=== PATIENT | female | born 1935 | race Caucasian/White ===

== ENCOUNTER 2016-08-08 19:14 | Inpatient (IN) | payer OTHER ==
--- NOTE | 2016-08-08 20:15 | PROVIDER DOCUMENTATION ---
HPI-Musculoskeletal Pain/Inj - GENERAL Chief Complaint: Fall Stated Complaint: fall Time Seen by Provider: 08/08/16 20:00 Source: patient - HX OF PRESENT ILLNESS-MUSKULOSKELTAL Nature of Presenting Problem: 81 Y/O F presents to ED with extremity pain. Pt states she was at home in the bathroom changing her colostomy bag, when she fell forward on to her knees and cut her right forearm. Pt c/o of lower back pain, with tenderness to right and left knees. Quality of Pain: reports: aching Severity in ED: moderate Onset/Duration: this evening Timing: still present Any recent injury?: No Locality of Occurance: Home Similar Symptoms Previously?: No - FALL INJURY Location of Pain/Injury: reports: upper extremity, back, lower extremity Pain Radiation: reports: no radiation Reason for Fall: reports: unknown Symptoms prior to fall:: reports: none Loss of Consciousness: unsure Injury Associated Symptoms: reports: back/neck pain, joint pain, muscle aches - LOWER EXTREMITY PAIN/INJURY Lower Extremities Pain: knee: bilateral Context / Method of Injury: reports: fell Associated Symptoms: reports: lower back pain - UPPER EXTREMITY PAIN/INJURY Extremities Pain Location: forearm: right Context / Method of Injury: reports: fell Review of Systems - Adult - REVIEW OF SYSTEMS - ADULT Constitutional: denies: chills, fever Eyes: reports: no symptoms reported Ears, Nose, Mouth & Throat: denies: ear discharge, ear pain, sinus problem, nose pain, loose teeth, mouth/dental pain Cardiovascular: denies: chest pain Respiratory: reports: no symptoms reported Gastrointestinal: denies: abdominal pain, diarrhea, nausea, rectal bleeding Genitourinary: reports: no symptoms reported Musculoskeletal: reports: back pain, joint pain, muscle aches Integumentary: reports: no symptoms reported Neurological: denies: dizziness/vertigo, headache/migraines Psychiatric: reports: no symptoms reported Endocrine: reports: no symptoms reported Hematologic/Lymphatic: reports: no symptoms reported Allergic/Immunologic: reports: no symptoms reported All Other Systems: Reviewed and Negative Past History - Adult - PAST MEDICAL HISTORY-ADULT Review of Records: reports: Old Records Reviewed, Nursing Assessment Review, Medications Reviewed, Social history reviewed & non-contributory. Major Childhood Illnesses: reports: denies history Cardiovascular: reports: A-Fib, blood clots (DVT), CAD, CHF, HTN, hyperlipidemia Respiratory: reports: denies history Gastrointestinal: reports: diverticulosis, other (perf diverticulitis requiring colostomy) Obstetrical/Gynecological: reports: denies history Genitourinary: reports: denies history Musculoskeletal: reports: arthritis (gout; polymyalgia rheumatica), other ( varicose veins in kylee legs) Neurological: reports: other (weakness tp bilat legs) Endocrine/Immune: reports: Diabetes, thyroid disorder, other (Vitamin B12 deficiency) Other Conditions: reports: denies history - PRIOR SURGERIES/PROCEDURES Surgical/Procedure History: reports: cholecystectomy, bowel surgery (sigmoid colectomy with end colostomy), orthopedic (extremity) (left shoulder Sx), joint replacement (Kylee knee replacement) - PRIOR HOSPITALIZATIONS Prior Hospitalizations: reports: none - IMMUNIZATION STATUS Childhood Immunizations: See Nurse Assessment Flu Vaccine: See Nurse Assessment - FAMILY HISTORY Family History: other (cirhosis of the liver; arthritis) - SOCIAL HISTORY Smoking: non-smoker Substance Use: none/never Alcohol Use Frequency: never Living Situation: family Physical Exam-Injury Related - Physical Exam-Injury Related Initial Vital Signs Reviewed: Yes General Appearance: appears well, alert, no apparent distress, obese Eyes: PERRL/EOMI, pink conjunctivae, fundi clear, no AV nicking Head, Ears, Nose, Mouth & Throat: normocephalic/atraumatic, moist mucous membranes, normal ENT inspection, TMs normal, pharynx normal Neck: non-tender, full range of motion, supple Respiratory: chest non-tender, lungs clear, normal breath sounds Cardiovascular: normal peripheral pulses, regular rate, rhythm Abdominal Exam: normal bowel sounds, non tender, other (colotomy bag) Back Exam: other (Lower Back Pain) Extremity: normal range of motion, tenderness (bilateral knee tenderness), other (abrasion to right forearm) Integumentary: normal color, warm/dry Neurologic: blasting entryman II-XII nml as tested Psych/Mental Status: normal mood/affect, normal thought content, normal thought process, oriented x 3 - Glascow Coma Score Best Eye Response ([place]): (4) open spontaneously Best Verbal Response ([place]): (5) oriented Best Motor Response ([place]): (6) obeys commands [place] Total: 15 Progress - PLAN OF CARE/RESULTS Progress/Plan/Lab Results: Laboratory Tests 08/08/16 08/08/16 22:35 22:35 WBC 10.61 RBC 4.00 L Hgb 13.0 Hct 41.2 MCV 103.0 H MCH 32.5 H MCHC 31.6 L RDW Std Deviation 15.4 H Plt Count 228 MPV 9.9 Immature Gran % (Auto) 1.0 H Neut % (Auto) 72.9 Lymph % (Auto) 18.8 L Cottle % (Auto) 5.9 Eos % (Auto) 1.1 Baso % (Auto) 0.3 Immature Gran # (Auto) 0.11 H Neut # (Auto) 7.73 H Lymph # (Auto) 1.99 Cottle # (Auto) 0.63 H Eos # (Auto) 0.12 Baso # (Auto) 0.03 Sodium 141 Potassium 4.2 Chloride 102 Carbon Dioxide 25 Anion Gap 14 BUN 35 H Creatinine 2.0 H Estimated GFR/1.73 m2 24 BUN/Creatinine Ratio 18 Glucose 223 H Calculated Osmolality 296 Calcium 8.9 Total Bilirubin 0.30 AST 14 ALT 16 Alkaline Phosphatase 93 Total Protein 6.2 L Albumin 3.7 Globulin 3.0 Albumin/Globulin Ratio 1.0 Orders Category Date Time Status KNEE 1-2 VIEWS-LEFT [RAD] Stat Exams 08/08/16 20:01 Taken KNEE 1-2 VIEWS-RIGHT [RAD] Stat Exams 08/08/16 20:01 Taken LUMBAR SPINE W/O CONTRAST [CT] Stat Exams 08/08/16 19:58 Taken PELVIS W/O CONTRAST [CT] Stat Exams 08/08/16 19:58 Taken CBC WITH DIFF [HEME] Stat Lab 08/08/16 22:35 Completed CMP [COMPREHENSIVE METABOLIC PANEL] [CHEM] Stat Lab 08/08/16 22:35 Completed Vital Signs - 24 hr 08/08/16 19:15 Temperature 97.3 F L Pulse Rate 77 Respiratory 20 Rate Blood Pressure 150/88 O2 Sat by Pulse 97 Oximetry Family states they would like for Pt to be admitted and sent to rehab, due to this being a reoccurring fx. - XRAY 1 XRAY: Bilateral XRAY Study: Knee Impression: Normal XRAY Interpretation: NAD - CT/MRI 1 CT Study: Pelvis Impression: Abnormal (old fx deformity of right pubic bone, hip degenerative changes, herniation of small bowel through colostomy defect in left anterior abdominal wall) CT Results: Possible minimal fx of right sacral ala, no other fx identified 2 CT Study: Lumbar Spine Impression: Normal CT Results: Severe degenerative disease, no fx - CONSULTS/PCP/HOSPITALIST Notification #1 *Consult/PCP/Hospitalist*: Time Discussed: 23:17 Reason/Comments: Admit for Xfer Consult Disposition: Admit (Alden from [facility] is going to call Dr. Goss and see if Pt can be approved for stay in [place]. Pt is a Dr. eRbolledo Pt.) #2 Consult: Time Discussed: 23:35 Reason/Comments: Admit Consult Disposition: Admit (Admit Accepted) Departure - Departure Time of Disposition Order: 23:17 DIAGNOSIS: Fracture, pelvis closed Qualifiers: Encounter type: subsequent encounter Pelvic bone location: other part of pelvis Fracture healing: with routine healing Qualified Code(s): S32.89XD - Fracture of other parts of pelvis, subsequent encounter for fracture with routine healing Disposition: ADMITTED INPATIENT 09 Certified Medical Emergency: Emergent Condition: Stable Referrals: Pardeep Rebolledo MD [Primary Care Provider] - Attestation - Scribe Verification/Attestation Scribe:: Neelam Solano Acting as Scribe for:: Isma Wilson Scribe documention review:: This chart was documented by a scribe and accurately reflects the service the provider performed and the decisions made by the provider.
[2016-08-08 22:41] LABS: MANUAL DIFF NEEDED? NO
[2016-08-08 22:49] LABS: BASO% 0.3 % (0.0-0.8); EOS# 0.12 X1000 (0.0-0.7); EOS% 1.1 % (0.0-10.0); HEMATOCRIT 41.2 % (37.0-47.0); IMM GRAN# 0.11 X1000 (0.0-0.04); LYMPH# 1.99 X1000 (1.2-3.4); LYMPH% 18.8 % (20.5-51.1); MCH 32.5 PG (27-31); MCHC 31.6 g/dL (33-37); MONO# 0.63 X1000 (0.11-0.59); MONO% 5.9 % (1.7-9.3); MPV 9.9 FL (7.4-10.4); NEUT% 72.9 % (42.2-75.2); PLT 228 X1000 (130-400)
[2016-08-08 23:03] LABS: ALBUMIN 3.7 g/dL (3.5-5.0); CALCIUM 8.9 mg/dL (8.8-10.2); POTASSIUM 4.2 mmol/L (3.5-5.1); TOTAL BILIRUBIN 0.3 mg/dL (0.20-1.00); TOTAL PROTEIN 6.2 g/dL (6.3-8.3)
[2016-08-09] MEDS ORDERED: TYLENOL PO PRN
[2016-08-09] MEDS ORDERED: TYLENOL WITH CODEINE #3 PO ONE (00:03)
[2016-08-09] MEDS ORDERED: RYTHMOL PO SCH (05:00)
[2016-08-09] MEDS ORDERED: NS 1,000 ML IV SCH ×2 (07:40)
--- NOTE | 2016-08-09 08:21 | Diag Imaging Result Document ---
PROCEDURE NAME: KNEE 1-2 VIEWS-RIGHT - 08/08/2016 RIGHT KNEE, TWO VIEWS: INDICATION: Fall. FINDINGS: There is a right total knee arthroplasty. There are no adverse features about the hardware. No effusion, fracture, or dislocation is identified. There are a few rounded densities within the prepatellar region. IMPRESSION: No acute fracture. MTDD
--- NOTE | 2016-08-09 08:25 | Diag Imaging Result Document ---
PROCEDURE NAME: KNEE 1-2 VIEWS-LEFT - 08/08/2016 LEFT KNEE, TWO VIEWS: INDICATION: Fall. FINDINGS: The patella appears inferiorly subluxed or at least malpositioned. There is a left total knee arthroplasty. There are no adverse features about the hardware. No acute fracture is identified. IMPRESSION: Subluxation versus apparent malposition of the patella. Follow up recommended.
--- NOTE | 2016-08-09 08:46 | Diag Imaging Result Document ---
PROCEDURE NAME: LUMBAR SPINE W/O CONTRAST - 08/08/2016 CT SCAN OF THE LUMBAR SPINE: INDICATION: Fall. Pain. Preliminary interpretation was given by the on-call radiologist. FINDINGS: There is severe degenerative disk disease with vacuum phenomenon noted at L3/L4, L4/L5, and L5/S1. There is marked facet bony overgrowth and there is some degenerative retrolisthesis. No acute fracture or subluxation is identified. IMPRESSION: Severe degenerative disk disease and spondylosis. No acute fracture.
--- NOTE | 2016-08-09 08:50 | Diag Imaging Result Document ---
PROCEDURE NAME: PELVIS W/O CONTRAST - 08/08/2016 CT SCAN OF THE PELVIS WITHOUT CONTRAST: INDICATION: Fall. Preliminary interpretation was given by the on-call radiologist. COMPARISON: 04/24/2015. FINDINGS: There is deformity of the right superior pubic ramus from previous fracture. There may be a minimal nondisplaced fracture of the right sacral ala. There are degenerative changes about the hips and lumbar spine. There is a large anterior abdominal wall hernia through an ostomy defect. There is an enlarged lobulated uterus likely secondary to multiple leiomyomata. The appearance of the parastomal hernia has increased when compared with the previous study. IMPRESSION: 1. Probable small nondisplaced right sacral ala fracture. 2. Interval increase in size of large parastomal hernia left anterior abdominal wall hernia. [facility]
[2016-08-09] MEDS: PROZAC PO SCH (09:50)
[2016-08-09] MEDS: ZYLOPRIM PO SCH (09:51)
[2016-08-09] MEDS: NEURONTIN PO SCH ×3 (09:51→17:17)
[2016-08-09] MEDS: COLACE PO SCH (09:51)
[2016-08-09] MEDS: LOPRESSOR PO SCH (09:51)
[2016-08-09] MEDS: RYTHMOL PO SCH ×2 (13:07→20:23)
[2016-08-09 13:45] LABS: URINE CULTURE PL NEEDED? NO; URINE SOURCE CATH
[2016-08-09 14:07] LABS: BILIRUBIN URINE NEGATIVE (NEGATIVE); BLOOD URINE TRACE (NEGATIVE); CLARITY CLEAR (CLEAR); COLOR YELLOW; GLUCOSE URINE NEGATIVE (NEGATIVE); LEUKOCYTES URINE NEGATIVE (NEGATIVE); NITRITE URINE POSITIVE (NEGATIVE); PROTEIN URINE NEGATIVE (NEGATIVE); SP GRAVITY URINE 1.015; UROBILINOGEN URINE NORMAL
[2016-08-09 14:15] LABS: URINE EPITHELIAL CELLS <10 /HPF (<10); URINE RBC <10 /HPF (<10)
--- NOTE | 2016-08-09 20:41 | HISTORY AND PHYSICAL ---
PRIMARY CARE PHYSICIAN: Dr. Rebolledo. CHIEF COMPLAINT: Fall. HISTORY OF PRESENT ILLNESS: This is a 81-year-old female who fell prior to coming to the emergency room. She is unsure if there was a loss of consciousness as she was alone. After the fall she had a skin tear to her right forearm with bilateral leg pain that starts at her lower back, goes down through her buttocks. She also complains of tenderness to bilateral knees as she did fall forward and land on her knees. CT of the pelvis revealed a probable small nondisplaced right sacral fracture. Incidental finding is interval increase in the size of a large parastomal hernia, the left anterior abdominal wall hernia. Lumbar spine CT revealed no acute fracture. She is being admitted for further evaluation and treatment. PAST MEDICAL HISTORY: Paroxysmal atrial fibrillation, diverticulosis, gout, hyperlipidemia, polymyalgia rheumatica, varicose veins, type 2 diabetes, history of endometriosis. 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 PAST SURGICAL HISTORY: Left total knee replacement, cholecystectomy, left shoulder arthroplasty, right knee replacement, sigmoid resection with colostomy. SOCIAL HISTORY: She is single. She is retired. She lives in [place]. She denies alcohol or illicit drug use. ALLERGIES: Meperidine. HOME MEDICATIONS: Prozac 40 q.a.m., Colace 100 daily, Zyloprim 200 q.a.m., Tylenol 650 q.6 hours p.r.n., propafenone 150 q.8 hours, prednisone 10 daily, Lopressor 50 daily, melatonin 3 at bedtime, Neurontin 300 t.i.d. REVIEW OF SYSTEMS: A 14 point review of systems is discussed with the patient with pertinent positives being bilateral knee pain, low back pain, suprapubic pain and arm pain. She denied chest pain, palpitations, dizziness, syncope, nausea, vomiting, diarrhea, constipation, black or bloody vomitus, black or bloody stools, hematuria, dysuria, frequency, urgency. PHYSICAL EXAMINATION: GENERAL: This is a 81-year-old female who is lying in the bed in no distress. VITAL SIGNS: Blood pressure 125/70 with heart rate of 79, respirations are 18, temperature is 97.3 degrees oral with room air saturations of 97%. CARDIOVASCULAR: Regular rate and rhythm. S1 and S2 are appreciated. PULMONARY: Breath sounds are clear. No increased work of breathing noted. GASTROINTESTINAL: Abdomen is soft, nontender, nondistended with bowel sounds in all 4 quadrants. Colostomy is noted with stoma pink and moist. NEUROLOGIC: She is alert and oriented with no focal deficits. EXTREMITIES: No clubbing, cyanosis, or edema is noted. Calves are nontender. Pulses are palpable x4. DIAGNOSTICS: WBC is 10.61 with hemoglobin 13, hematocrit 41.2 and platelets of 228,000. Sodium is 141, potassium 4.2, BUN 35, creatinine 2 with a glucose of 223. Urine is nitrite positive with 4+ bacteria with culture pending. ASSESSMENT AND PLAN: 1. Small nondisplaced right sacral ala fracture. 2. Acute on chronic renal failure. 3. Urinary tract infection with culture pending. 4. Paroxysmal atrial fibrillation. 5. Diverticulosis with a history of diverticulitis requiring a colostomy now with peristomal hernia. 6. History of diabetes mellitus 7. Hypertension. 8. Frequent falls. She will be admitted to the hospital. She will be placed on telemetry. We will identify and continue her home medications as appropriate. Physical therapy will be consulted. We will obtain a urine culture. We will trend labs. Replete electrolytes as appropriate. Will consult director of social work for rehab placement. Further treatments pending hospital course. Dictated by GENE Hicks for Yannick Rosario MD
[2016-08-10] MEDS: RYTHMOL PO SCH ×3 (04:11→20:14)
[2016-08-10 05:48] LABS: HEMATOCRIT 39.1 % (37.0-47.0); HEMOGLOBIN 12.2 g/dL (12.0-16.0); MCH 32.4 PG (27-31); MCHC 31.2 g/dL (33-37); MPV 9.8 FL (7.4-10.4); RBC 3.76 XMIL (4.2-5.4)
[2016-08-10 06:07] LABS: ALBUMIN 3.2 g/dL (3.5-5.0); CALCIUM 7.9 mg/dL (8.8-10.2); MAGNESIUM 1.9 mg/dL (1.5-2.7); POTASSIUM 3.8 mmol/L (3.5-5.1); TOTAL BILIRUBIN 0.7 mg/dL (0.20-1.00); TOTAL PROTEIN 5.4 g/dL (6.3-8.3)
[2016-08-10] MEDS: ZYLOPRIM PO SCH (09:34)
[2016-08-10] MEDS: PROZAC PO SCH (09:34)
[2016-08-10] MEDS: COLACE PO SCH (09:34)
[2016-08-10] MEDS: NEURONTIN PO SCH ×3 (09:34→16:03)
[2016-08-10] MEDS: LOPRESSOR PO SCH (09:34)
--- NOTE | 2016-08-10 10:43 | PROGRESS NOTE ---
DATE: 08/10/2016 SUBJECTIVE: The patient denies any new complaints. She notes that she still hurting a lot. She is still having difficulty with any type of ambulation. She states overall she is feeling a little bit better. OBJECTIVE: Temperature 98, pulse 76, respiratory rate 18, and BP 157/57.General: Patient is well developed, well nourished currently in no real respiratory distress. She is awake and alert. Neck: Supple. CV: Irregular rhythm rate controlled. Chest: Relatively clear. Abdomen: Soft. Extremities: Moves all extremities. Neurologic: No changes. ASSESSMENT: 1. Small nondisplaced right sacral ala fracture. 2. Acute on chronic renal failure, continues to improve slightly. 3. Mild volume depletion. 4. Urinary tract infection. Urine culture currently pending. 5. Paroxysmal atrial fibrillation. 6. Diverticulosis. 7. Known history of diabetes. 8. Frequent falls. PLAN: We will saline lock her IV today. We will continue to follow. Continue physical therapy. We will consult [facility] and follow.
--- NOTE | 2016-08-10 14:59 | Diag Imaging Result Document ---
PROCEDURE NAME: CHEST-2 VIEWS - 08/10/2016 FRONTAL AND LATERAL CHEST, 2 VIEWS. COMPARISON: Compared to 12/04/2015. FINDINGS: The lungs are well expanded. The heart is not enlarged. The vessels are not distended. No pneumonia. No pleural effusions. There is a granuloma in the mid right lung. IMPRESSION: Stable chest. [facility]
[2016-08-11] MEDS: RYTHMOL PO SCH ×2 (04:12→12:55)
[2016-08-11] MEDS: ZYLOPRIM PO SCH (09:04)
[2016-08-11] MEDS: PROZAC PO SCH (09:04)
[2016-08-11] MEDS: LOPRESSOR PO SCH (09:04)
[2016-08-11] MEDS: COLACE PO SCH (09:04)
[2016-08-11] MEDS: NEURONTIN PO SCH ×2 (09:04→12:55)
--- NOTE | 2016-08-11 09:16 | PROGRESS NOTE ---
DATE: 08/11/2016 SUBJECTIVE: Patient without complaints. Notes that she is feeling a little bit better. She is having better pain control. Denies any fevers, chills, cough, congestion. Denies any GI or issues. OBJECTIVE: Vital Signs: Temperature 98.0 degrees, pulse 73, respiratory rate 20, and BP 150/73. General: Patient is a well developed, elderly female, who is currently in no respiratory distress. She is awake, alert. Neck: Supple. CV: Regular rate. Chest: Relatively clear. Extremities: No edema. LABS: Pending. ASSESSMENT: 1. Small nondisplaced right sacral ala fracture. 2. Acute on chronic renal failure, improving slowly. 3. Hypocalcemia, stable. 4. Frequent falls. 5. Paroxysmal atrial fibrillation. PLAN: Will continue to follow. The patient appears to have an abnormal urine culture that has been pending for the past 36 hours. Will continue to follow up with the lab, continue on antibiotics until which time the culture results. [facility], [facility], and continue her strengthening process.
[2016-08-11 11:54] VITALS: BP 134/52
--- NOTE | 2016-08-11 12:05 | DISCHARGE SUMMARY ---
ADMISSION DATE: 08/09/2016 DISCHARGE DATE: 08/11/2016 PRIMARY CARE PHYSICIAN: Dr. Rebolledo. DIAGNOSES: 1. Small nondisplaced right sacral ala fracture. 2. Acute on chronic renal failure with a creatinine of 1.8 with, it looks like, a baseline of 1.7 to 2 . 3. Mild volume depletion, resolved. 4. Urinary tract infection, gram-negative eligio; culture is pending. 5. Paroxysmal atrial fibrillation. 6. Diverticulosis. 7. Diabetes mellitus. 8. Frequent falls. DIAGNOSTICS: On 08/08/[address]: Severe degenerative disk disease and spondylosis, no acute fracture. On 08/08/2016 CT of the pelvis: Probable small displaced right sacral ala fracture, interval increase in size of large parastomal hernia, left anterior abdominal wall hernia. On 08/08/2016 right knee reveals no acute fracture. On 08/08/2016 left knee reveals subluxation versus malposition of the patella. On 08/10/2016 chest x-ray reveals lungs are well expanded. Heart is not enlarged. Vessels are not distended. No pneumonia. No pleural effusions. MICROBIOLOGY: Urine with gram-negative eligio; full culture pending. HOSPITAL COURSE: Ms. Leonardo presented to the emergency room after sustaining a fall. She was found to have a small nondisplaced right sacral ala fracture, as well as a urinary tract infection. She actually has done quite well with pain, requiring no medications, just repositioning. She was evaluated by physical therapy who did recommend skilled PT intervention in a rehab hospital or inpatient rehab facility. She has been afebrile with blood pressures that have been 120 to 150s over 60s to 70s. Heart rates have stayed in the 70s to 80s. She has a history of chronic kidney disease with a baseline creatinine it looks like about 1.6 to 2 over the last year. She is at 1.8. Blood sugars have averaged 115-160s. She does have, it looks like, very frequent urinary tract infections. In review of her old records she has had 6 urinary tract infections in the last 18 months, 4 in the last 5 months that have been E. coli and Proteus which were all cefazolin susceptible. We continue to have a preliminary reading on the culture. We will go ahead and start Keflex and can follow. Antibiotics can be changed once sensitivities and the final culture results. DISCHARGE EXAMINATION: Cardiovascular: Irregularly irregular rate and rhythm. S1 and S2 appreciated. Pulmonary: Breath sounds are clear. No increased work of breathing noted. Chest does rise and fall symmetrically with respiration. Gastrointestinal: Abdomen is soft, nondistended, nontender. Stoma noted to be pink and moist. Bowel sounds are in all quadrants. Neurologic: She is alert and oriented x3 with cranial nerves 2 through 12 grossly intact. Extremities: No clubbing, cyanosis, or edema. Calves nontender and her pulses are palpable x4. : Gaines catheter is patent to bedside bag with clear yellow urine draining. Discharge Vital Signs: Blood pressure is 131/61, with a heart rate of 80, respirations are 20, temperature is 98 degrees oral with oxygen saturations of 96 to 98% on room air. DISCHARGE MEDICATIONS: Keflex 500 mg b.i.d. for 14 days, Neurontin 300 mg p.o. t.i.d., melatonin 3 mg p.o. at bedtime, Lopressor 50 p.o. daily, Rythmol 150 mg p.o. q.8 hours, Tylenol 650 q.6 hours p.r.n., allopurinol 200 q.a.m., Colace 100 mg daily, Prozac 40 daily. DISCHARGE ACTIVITY: As per rehab policy. DISCHARGE DIET: Regular diet. FOLLOWUP: She needs to follow up with Dr. Rebolledo, her primary care physician, in 1-2 weeks after discharge from rehab unless otherwise instructed by rehab facility on discharge. DISPOSITION: She is being discharged to rehab in stable condition via EMS transport. TIME SPENT: This is a greater than 30 minute discharge. Dictated by GENE Hicks for Yannick Rosario MD
== END 2016-08-11 14:58 | DRG 552 ==
LOC: SUPCPDRO 19:14 → P.ED 19:14 → P.MEDSURG 08-09 00:03
PROVIDERS: ATTEND Family Medicine
DX: S32.110A Nondisplaced Zone I fracture of sacrum, initial encounter for closed fracture (principal); N17.9 Acute kidney failure, unspecified; E11.22 Type 2 diabetes mellitus with diabetic chronic kidney disease; E83.51 Hypocalcemia; N39.0 Urinary tract infection, site not specified; I48.0 Paroxysmal atrial fibrillation; E86.9 Volume depletion, unspecified; I12.9 Hypertensive chronic kidney disease with stage 1 through stage 4 chronic kidney disease, or unspecified chronic kidney disease; E78.5 Hyperlipidemia, unspecified; M10.9 Gout, unspecified; N18.9 Chronic kidney disease, unspecified; M35.3 Polymyalgia rheumatica; K43.9 Ventral hernia without obstruction or gangrene; K43.5 Parastomal hernia without obstruction or gangrene; K57.30 Diverticulosis of large intestine without perforation or abscess without bleeding; S51.812A Laceration without foreign body of left forearm, initial encounter; B96.20 Unspecified Escherichia coli [E. coli] as the cause of diseases classified elsewhere; Z79.899 Other long term (current) drug therapy; Z79.52 Long term (current) use of systemic steroids; Z85.51 Personal history of malignant neoplasm of bladder; Z91.81 History of falling; Z96.653 Presence of artificial knee joint, bilateral; Z93.3 Colostomy status; Z90.49 Acquired absence of other specified parts of digestive tract; W18.30XA Fall on same level, unspecified, initial encounter
CPT/HCPCS: 36415; 71020; 72131; 72192; 73560; 80053; 81001; 82948; 83735; 85025; 85027; 87077; 87088; 87186; J7030; 97530-GP

== ENCOUNTER 2016-11-13 11:51 | Inpatient (IN) ==
[2016-11-13] MEDS ORDERED: PHENERGAN IV ONE (12:02)
[2016-11-13] MEDS ORDERED: SODIUM CHLORIDE 0.9% INJ ONE (12:02)
[2016-11-13] MEDS ORDERED: DILAUDID IV ONE (12:02)
[2016-11-13 12:26] LABS: MANUAL DIFF NEEDED? NO
[2016-11-13 12:33] LABS: BASO% 0.2 % (0.0-0.8); EOS# 0.01 X1000 (0.0-0.7); EOS% 0.1 % (0.0-10.0); HEMATOCRIT 40.1 % (37.0-47.0); HEMOGLOBIN 13.3 g/dL (12.0-16.0); IMM GRAN# 0.07 X1000 (0.0-0.04); IMM GRAN% 0.7 % (0.0-0.5); LYMPH# 1.44 X1000 (1.2-3.4); LYMPH% 13.7 % (20.5-51.1); MCH 33.4 PG (27-31); MCHC 33.2 g/dL (33-37); MCV 100.8 FL (81-99); MONO# 0.74 X1000 (0.11-0.59); MPV 10.1 FL (7.4-10.4); NEUT% 78.3 % (42.2-75.2); PLT 281 X1000 (130-400); RBC 3.98 XMIL (4.2-5.4)
--- NOTE | 2016-11-13 12:40 | Diag Imaging Result Doc PS360 ---
EXAM: HEAD W/O CONTRAST HISTORY: worst headache of my life TECHNIQUE: COMPARISON: 09/08/2015 FINDINGS: No parenchymal hemorrhage. No epidural or subdural hematoma. No subarachnoid hemorrhage. No mass identified on this noncontrasted exam. No hydrocephalus. No sinus opacification and no air-fluid levels. Mild chronic microvascular ischemic changes. IMPRESSION: 1.No hemorrhage 2.Mild chronic microvascular ischemic changes Electronically signed by Guzman Arrington 11/13/2016 12:37 PM
[2016-11-13 12:46] LABS: ALBUMIN 3.6 g/dL (3.5-5.0); CALCIUM 8.3 mg/dL (8.8-10.2); POTASSIUM 4.3 mmol/L (3.5-5.1); TOTAL BILIRUBIN 0.59 mg/dL (0.20-1.00); TOTAL PROTEIN 6.8 g/dL (6.3-8.3)
[2016-11-13] MEDS ORDERED: VALTREX PO ONE (13:46)
[2016-11-13] MEDS ORDERED: NS 1,000 ML IV ONE (14:43)
[2016-11-13] MEDS ORDERED: ZOFRAN IV PRN (14:43)
--- NOTE | 2016-11-13 14:43 | PROVIDER DOCUMENTATION ---
This chart was entered by Brittney Burton Scribe, acting as scribe for Mehdi Rivera MD. HPI-Headache - General Chief Complaint: Headache Stated Complaint: "WORSE HEADACHE OF HER LIFE" Time Seen by Provider: 11/13/16 11:57 Source: patient Allergies/Adverse Reactions: Patient Allergies Allergy/AdvReac Type Severity Reaction Status Date / Time meperidine HCl * AdvReac Intermediate NAUSEA/VOMI Verified 11/13/16 12:15 [From Demerol] TING Home Medications: Home Medication List Medication Instructions Recorded Confirmed Last Taken Type Melatonin 3 mg PO QHS 02/05/13 11/13/16 11/11/16 History Fluoxetine HCl [Prozac] 40 mg PO QAM 11/12/14 11/13/16 11/11/16 History Docusate Sodium [Colace] 100 mg PO DAILY 01/06/15 11/13/16 11/11/16 History Metoprolol [Lopressor] 50 mg PO DAILY 01/06/15 11/13/16 11/11/16 History Propafenone HCl [Rythmol] 150 mg PO Q8HR 01/06/15 11/13/16 11/11/16 History Allopurinol [Zyloprim] 200 mg PO QAM 06/22/15 11/13/16 11/11/16 History Gabapentin [Neurontin] 300 mg PO TID #0 capsule 09/12/16 11/13/16 11/11/16 Rx Levothyroxine [Synthroid] 50 microgm PO DAILY@0700 #0 tablet 09/12/16 11/13/16 11/11/16 Rx Prednisone 5 mg PO DAILY #30 tab.ds.pk 09/12/16 11/13/16 11/04/16 Rx Sitagliptin Phosphate [Januvia] 100 mg PO DAILY #30 tablet 09/12/16 11/13/16 Rx Warfarin [Coumadin] 3 mg PO QHS #0 tablet 09/12/16 11/13/16 11/11/16 Rx Acetaminophen [Tylenol] 650 mg PO Q6H PRN PRN 11/13/16 11/13/16 11/12/16 History Furosemide [Lasix] 40 mg PO DAILY 11/13/16 11/13/16 11/11/16 History Multivitamin [Multiple Vitamins] 1 each PO DAILY 11/13/16 11/13/16 11/11/16 History Ondansetron HCl [Zofran] 4 mg PO Q6HR PRN 11/13/16 11/13/16 Unknown History - History of Present Illness-Headache Nature of Presenting Problem: 81 yo MILDRED presents from home with the 'worst headache of her life.' Accompanied by daughter. POWELL began on and has progressively gotten worse. She describes burning pain on left side of head and face. Light hurts her eyes. Nausea but no vomiting. Headache Location: reports: temporal, parietal Quality of Pain: reports: burning Severity: reports: severe Onset/Duration: reports: 4 days ago Timing: reports: still present, getting worse Headache Context: reports: nothing. denies: head injury Any recent trauma/injury?: reports: none Headache severity at the maximum: worst of life Preceding Symptoms: denies: visual disturbances, scotoma Headache Exacerbated by:: reports: light, movement Modifying Factors: worse with: analgesics Associated Symptoms: reports: dizziness, nausea, diaphoretic. denies: short of breath, fever/chills, loss of consciousness, numbness in legs/feet, slurred speech, tingling in legs/feet Similar Symptoms Previously?: No Recently seen or treated by another doctor?: No Review of Systems - Adult - REVIEW OF SYSTEMS - ADULT Constitutional: reports: no symptoms reported Eyes: reports: no symptoms reported Ears, Nose, Mouth & Throat: reports: no symptoms reported Cardiovascular: reports: no symptoms reported Respiratory: reports: no symptoms reported Gastrointestinal: reports: no symptoms reported Genitourinary: reports: no symptoms reported Musculoskeletal: reports: no symptoms reported Integumentary: reports: no symptoms reported Neurological: reports: no symptoms reported Psychiatric: reports: no symptoms reported Endocrine: reports: no symptoms reported Hematologic/Lymphatic: reports: no symptoms reported Allergic/Immunologic: reports: no symptoms reported All Other Systems: Reviewed and Negative Past History - Adult - PAST MEDICAL HISTORY-ADULT Review of Records: reports: Nursing Assessment Review, Medications Reviewed, Social history reviewed & non-contributory. Major Childhood Illnesses: reports: denies history Cardiovascular: reports: A-Fib, blood clots (DVT), CAD, CHF, HTN, hyperlipidemia Respiratory: reports: denies history Gastrointestinal: reports: diverticulosis, other (perf diverticulitis requiring colostomy) Obstetrical/Gynecological: reports: denies history Genitourinary: reports: denies history Musculoskeletal: reports: arthritis (gout; polymyalgia rheumatica), other ( varicose veins in kylee legs) Neurological: reports: other (weakness tp bilat legs) Endocrine/Immune: reports: Diabetes, thyroid disorder, other (Vitamin B12 deficiency) Other Conditions: reports: denies history - PRIOR SURGERIES/PROCEDURES Surgical/Procedure History: reports: cholecystectomy, bowel surgery (sigmoid colectomy with end colostomy), orthopedic (extremity) (left shoulder Sx), joint replacement (Kylee knee replacement) - PRIOR HOSPITALIZATIONS Prior Hospitalizations: reports: none - IMMUNIZATION STATUS Childhood Immunizations: See Nurse Assessment Flu Vaccine: See Nurse Assessment - FAMILY HISTORY Family History: other (cirhosis of the liver; arthritis) Physical Exam- Neurological - Physical Exam-Neuro Initial Vital Signs Reviewed: Yes General Appearance: moderate distress, obese Eye Exam: bilateral eye: normal inspection, PERRL, EOMI HENMT: normocephalic/atraumatic, moist mucous membranes Head Injury: no evidence of injury Neck: non-tender, full range of motion Respiratory: lungs clear, normal breath sounds, no pleuratic chest pain, no respiratory distress Cardiovascular: normal peripheral pulses, no edema, tachycardia Extremity: normal range of motion, no calf tenderness, normal capillary refill painter interior finish Exam: normal hearing, normal speech, PERRL Motor/Sensory: no motor deficit, no sensory deficit Neurologic: painter interior finish II-XII nml as tested Integumentary: zoster-like rash (questionable, on left side of jaw, no other vesicles seen) Progress - PLAN OF CARE/RESULTS Progress/Plan/Lab Results: Vital Signs - 8 hr 11/13/16 11:56 Temperature 97.9 F Pulse Rate 85 Respiratory Rate 18 Blood Pressure 174/84 O2 Sat by Pulse Oximetry 99 Laboratory Results - last 24 hr 11/13/16 11/13/16 12:09 12:09 WBC 10.54 RBC 3.98 L Hgb 13.3 Hct 40.1 MCV 100.8 H MCH 33.4 H MCHC 33.2 RDW Std Deviation 14.5 Plt Count 281 MPV 10.1 Immature Gran % (Auto) 0.7 H Neut % (Auto) 78.3 H Lymph % (Auto) 13.7 L [place] % (Auto) 7.0 Eos % (Auto) 0.1 Baso % (Auto) 0.2 Immature Gran # (Auto) 0.07 H Neut # (Auto) 8.26 H Lymph # (Auto) 1.44 [place] # (Auto) 0.74 H Eos # (Auto) 0.01 Baso # (Auto) 0.02 Sodium 141 Potassium 4.3 Chloride 102 Carbon Dioxide 24 L Anion Gap 15 BUN 31 H Creatinine 1.7 H Estimated GFR/1.73 m2 29 BUN/Creatinine Ratio 18 Glucose 107 H Calculated Osmolality 288 Calcium 8.3 L Total Bilirubin 0.59 AST 14 ALT 13 Alkaline Phosphatase 62 Total Protein 6.8 Albumin 3.6 Globulin 3.2 Albumin/Globulin Ratio 1.1 Orders Category Date Time Status HEAD W/O CONTRAST [CT] Stat Exams 11/13/16 12:03 Completed CBC WITH ELECTRONIC DIFF [HEME] Stat Lab 11/13/16 12:09 Completed COMPREHENSIVE METABOLIC PANEL [CHEM] Stat Lab 11/13/16 12:09 Completed URINALYSIS W/POSS RFLX CULT [URINALYSIS] Stat Lab 11/13/16 12:05 Uncollected Hydromorphone [Dilaudid] Med 11/13/16 12:02 Discontinued 0.5 mg IV NOW ONE Promethazine [Phenergan] Med 11/13/16 12:02 Discontinued 25 mg IV NOW ONE Sodium Chloride 0.9% Med 11/13/16 12:02 Discontinued 10 ml INJ NOW ONE Valacyclovir [Valtrex] Med 11/13/16 13:46 Discontinued 1,500 mg PO NOW ONE Result Diagrams: 11/13/16 12:09 11/13/16 12:09 - REASSESSMENT Reassessment #1 Time Reassessed: 14:00 (improved, but family says she lives alone and if we tryto send her home they will 'just bring her back up here.' I asked if they could stay with her and they said ') Status: improving - CONSULTS/PCP/HOSPITALIST Notification #1 *Consult/PCP/Hospitalist*: remigio danielson Time Discussed: 14:30 Consult Disposition: Admit Departure - Departure Time of Disposition Decision: 14:40 DIAGNOSIS: Herpes zoster infection of mandibular region, Diabetes Intractable headache Qualifiers: Headache type: unspecified Headache chronicity pattern: acute headache Qualified Code(s): R51 - Headache Disposition: ADMITTED INPATIENT 09 Certified Medical Emergency: Emergent Condition: Stable Discharge Education: Migraine Headache, [id number] - Critical Care Note This patient required my direct & personal management of CC.: No This chart was documented by the indicated scribe, (Brittney Burton Scribe) and accurately reflects the services I performed and decisions made by me, Mehdi Rivera MD, as attested by the provider's signature.
[2016-11-13] MEDS ORDERED: ZOVIRAX IV SCH (14:45)
[2016-11-13] MEDS ORDERED: NS IV SCH (14:45)
[2016-11-13 16:25] LABS: INR 2.68
[2016-11-13] MEDS ORDERED: TYLENOL PO PRN (16:57)
[2016-11-13] MEDS ORDERED: SODIUM CHLORIDE 0.9% INJ PRN (16:58)
[2016-11-13] MEDS: DILAUDID IV PRN ×2 (17:14→21:07)
[2016-11-13] MEDS: NEURONTIN PO SCH (17:16)
[2016-11-13] MEDS: ZOVIRAX 500 MG in NS 100 ML IV SCH (17:17)
[2016-11-13] MEDS ORDERED: ZOFRAN PO PRN (17:25)
[2016-11-13 17:29] LABS: HEMOGLOBIN A1C 6.3 % (4.8-6.0)
--- NOTE | 2016-11-13 19:28 | HISTORY AND PHYSICAL ---
CHIEF COMPLAINT: Subjective headache and jaw pain. PRESENT ILLNESS: The patient is a 81-year-old, white female with multiple medical problems who three days ago went to Med-Surg with left-sided facial pain. She was given some pain medicine at that time. It has gotten worse last night and she started with a rash that is vesicular and certainly looks like shingles. The patient is almost hysterical with the pain. She was given some Dilaudid in the emergency room. It was starting to wear off by the time I saw her, and it was difficult to get the history, and she just said do not let me hurt, it hurts too much. Now she is kind of hurting all over her head as well. She is alert and can answer questions when she is not crying through the pain. CT scan of the head was essentially normal. Certainly, we will have to will watch for any neurological changes in case she gets a varicella zoster encephalopathy or encephalitis, did not show encephalitis on her CT scan. At this point, it could be that she is just very sensitive to pain and that she has muscle tension with this, but we will watch for encephalopathy. 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 She has had a cholecystectomy. Patient does have chronic atrial fibrillation and diabetes mellitus as well as gout, depression, congestive heart failure, hypothyroidism. She has also had polymyalgia rheumatica and is on 5 mg of prednisone daily. ALLERGIES: She says she is allergic to Demerol, only she was told she was from years ago and does not remember what the reaction was. She has been given Dilaudid already a couple of times and had no trouble with it. REVIEW OF SYSTEMS: Neurological: The patient has headache as under present illness. Previously has not been having much in the way of headaches. Denies seizures, visual problems, hearing problems. Pulmonary: Denies cough, wheezing, dyspnea. Cardiovascular: Denies chest pain, heart palpitations, PND, orthopnea. She does have a history of congestive heart failure and is on Lasix and has chronic atrial fibrillation and is on Coumadin 3 mg daily. GI: Denies hematochezia, hematemesis, melena, constipation, diarrhea. Does have a colostomy. : Denies any difficulty with urination. Musculoskeletal: Says her neck is hurting, I think she does have muscle tension from the pain from the shingles. SOCIAL HISTORY: Only occasionally uses alcohol. Does not use tobacco and never has. FAMILY HISTORY: Father from cirrhosis from drinking. Her mother had cancer. She has 2 daughters in good health. PHYSICAL EXAMINATION: VITAL SIGNS: Blood pressure is 182/79, respirations 20, pulse 81, temperature 97.8 degrees Fahrenheit. GENERAL: Patient is an overweight white female who is crying with her discomfort. She will talk in between. She has asked not to have any pain. HEENT: She is normocephalic. EOMs intact. Throat clear. Fundi not seen well. She does have vesicular rash under her left jaw area consistent with shingles. LUNGS: Clear to auscultation and percussion without rhonchi, rales, or wheezes. HEART: Irregularly irregular without murmurs, gallops, or friction rubs. ABDOMEN: Soft. Active bowel sounds. No organomegaly or tenderness. She does have a colostomy. BREAST: Deferred. PELVIC: Deferred. RECTAL: Deferred. NEUROLOGICAL: Cranial nerves 2-12 intact grossly. Sensory motor intact. Reflexes 1+ all. PLAN: We will admit with IV acyclovir. We will monitor for possible encephalopathy. We will control pain. We will help anxiety. We will place her in isolation. Since she has been on the prednisone for while, I cannot just stop it even though I would prefer her not to be on it for the shingles. At this time we will continue it. cc: MD Van Ray Jr, MD
[2016-11-13] MEDS: COUMADIN PO SCH (21:04)
[2016-11-13] MEDS: RYTHMOL PO SCH (21:04)
[2016-11-13] MEDS: MELATONIN PO SCH (21:04)
[2016-11-13] MEDS: HUMULIN R SUBQ SCH (21:16)
[2016-11-14] MEDS: TYLENOL PO PRN ×3 (00:05→15:55)
[2016-11-14] MEDS: DILAUDID IV PRN ×4 (01:37→18:08)
[2016-11-14] MEDS: ZOVIRAX 500 MG in NS 100 ML IV SCH (03:59)
[2016-11-14] MEDS: RYTHMOL PO SCH ×3 (04:02→20:50)
[2016-11-14] MEDS: SYNTHROID PO SCH (06:27)
[2016-11-14] MEDS: HUMULIN R SUBQ SCH ×4 (06:28→20:52)
[2016-11-14 06:41] LABS: BASO% 0.6 % (0.0-0.8); EOS# 0.12 X1000 (0.0-0.7); EOS% 1.3 % (0.0-10.0); HEMATOCRIT 42.8 % (37.0-47.0); HEMOGLOBIN 13.3 g/dL (12.0-16.0); IMM GRAN# 0.07 X1000 (0.0-0.04); IMM GRAN% 0.7 % (0.0-0.5); LYMPH# 1.43 X1000 (1.2-3.4); LYMPH% 14.9 % (20.5-51.1); MANUAL DIFF NEEDED? YES; MCH 32.8 PG (27-31); MCHC 31.1 g/dL (33-37); MCV 105.7 FL (81-99); MONO# 0.78 X1000 (0.11-0.59); MONO% 8.1 % (1.7-9.3); NEUT% 74.4 % (42.2-75.2); PLT 261 X1000 (130-400); RBC 4.05 XMIL (4.2-5.4)
[2016-11-14 06:45] LABS: CALCIUM 8.3 mg/dL (8.8-10.2); POTASSIUM 4.3 mmol/L (3.5-5.1)
[2016-11-14 07:20] LABS: LYMPHS 22 % (21-51); MONO 4 % (1-9)
[2016-11-14] MEDS ORDERED: JANUVIA PO SCH (09:00)
[2016-11-14] MEDS ORDERED: NEURONTIN PO SCH (09:00)
[2016-11-14] MEDS: ZYLOPRIM PO SCH (09:05)
[2016-11-14] MEDS: NEURONTIN PO SCH ×3 (09:05→20:50)
[2016-11-14] MEDS: PREDNISONE PO SCH (09:06)
[2016-11-14] MEDS: PHENERGAN IV PRN (09:06)
[2016-11-14] MEDS: LOPRESSOR PO SCH (09:06)
[2016-11-14] MEDS: LASIX PO SCH (09:06)
[2016-11-14] MEDS: THERA M PLUS PO SCH (09:06)
[2016-11-14] MEDS: COLACE PO SCH (09:06)
[2016-11-14] MEDS: PROZAC PO SCH (09:06)
[2016-11-14] MEDS: XANAX PO SCH ×3 (09:12→20:50)
[2016-11-14 11:27] LABS: URINE MICRO REVIEW NEEDED? NO; URINE SOURCE CLEAN CATCH
--- NOTE | 2016-11-14 11:28 | PROGRESS NOTE ---
DATE: 11/14/2016 SUBJECTIVE: Patient still complaining of severe headache, pain in the left postauricular and left facial area of the mandible. She thinks her urine output has been normal for her but on bladder scanning, she has 200 and some mL in and the urine output is down. OBJECTIVE: Vital Signs: Afebrile, pulse 87, respirations 14, blood pressure 153/79, O2 saturation on room air is 90-98%. Skin: There is a vesicular rash, reddened, left postauricular, left pinna area extending down the left angle of the jaw, left mandibular area. The patient is holding her face in both hands. HEENT: YUNI. EOMI. Neurologic: Cranial nerves 2-12 are intact. Tongue in the midline. CV: Irregularly irregular. Lungs: CTA. Abdomen: Nontender. Extremities: No edema. Moves all extremities well. Laboratory Data: Show a sodium of 142, potassium 4.3, chloride 102, CO2 23, BUN 34, creatinine 2.2, glucose 93, calcium 8.3. TFTs normal yesterday. White count 9.6, hemoglobin 13.3, platelets 261,000, neutrophils 74, lymphocytes 15. INR yesterday 2.68. ASSESSMENT: 1. Zoster, left periauricular and mandibular area. 2. Headache, thought related to #1. 3. Polymyalgia rheumatica, on chronic prednisone therapy. 4. Paroxysmal atrial fibrillation, on chronic Coumadin therapy. 5. Diverticulosis. 6. Gout. 7. Hyperlipidemia. 8. Varicose veins in lower extremities. 9. Type 2 diabetes mellitus. 10. Morbid obesity. 11. Chronic renal insufficiency with baseline creatinine of around 1.8 with mild prerenal azotemia currently, and she has not been able to the eat or drink well due to the zoster. PLAN: We will increase her IV fluids. Place a Gaines catheter so it is easier to check her Is and Os. Continue Dilaudid for pain control. Continues Zovirax with renal dosing. We will renal dose her Januvia. Continue her Rythmol and Coumadin. Monitor INR closely. We will repeat INR tomorrow. Monitor CBC and BMP. cc: MD Van Renner MD
[2016-11-14 11:29] LABS: BILIRUBIN URINE NEGATIVE (NEGATIVE); BLOOD URINE SMALL (NEGATIVE); COLOR YELLOW; GLUCOSE URINE NEGATIVE (NEGATIVE); LEUKOCYTES URINE LARGE (NEGATIVE); NITRITE URINE NEGATIVE (NEGATIVE); PH URINE 5.5; PROTEIN URINE TRACE mg/dL (NEGATIVE); SP GRAVITY URINE 1.021; TURBIDITY URINE HAZY (CLEAR); UR EPITHELIAL CELLS <10 /HPF (<10); URINE BACTERIA 4+ /HPF; URINE CULTURE NEEDED? YES; URINE RBC <10 /HPF (<10); URINE WBC TNTC /HPF (<10); UROBILINOGEN URINE NORMAL (NORMAL)
[2016-11-14] MEDS ORDERED: MISC. PHARMACY COMMUNICATION SCH (11:30)
[2016-11-14] MEDS: POTASSIUM CHLORIDE 10 MEQ in NS 1,000 ML IV SCH (13:12)
[2016-11-14] MEDS: COUMADIN PO SCH (20:50)
[2016-11-14] MEDS: MELATONIN PO SCH (20:50)
[2016-11-15] MEDS: DILAUDID IV PRN ×4 (01:25→22:49)
[2016-11-15] MEDS: TYLENOL PO PRN (03:57)
[2016-11-15] MEDS: RYTHMOL PO SCH ×3 (05:02→22:51)
[2016-11-15 06:00] LABS: MANUAL DIFF NEEDED? NO
[2016-11-15 06:15] LABS: BASO% 0.4 % (0.0-0.8); EOS# 0.18 X1000 (0.0-0.7); HEMOGLOBIN 13.2 g/dL (12.0-16.0); IMM GRAN# 0.07 X1000 (0.0-0.04); IMM GRAN% 0.8 % (0.0-0.5); LYMPH# 1.53 X1000 (1.2-3.4); LYMPH% 17.2 % (20.5-51.1); MCHC 31.4 g/dL (33-37); MONO# 0.91 X1000 (0.11-0.59); MONO% 10.2 % (1.7-9.3); MPV 10.1 FL (7.4-10.4); NEUT% 69.4 % (42.2-75.2); PLT 248 X1000 (130-400)
[2016-11-15] MEDS: SYNTHROID PO SCH (06:21)
[2016-11-15] MEDS: HUMULIN R SUBQ SCH ×4 (06:24→22:52)
[2016-11-15 06:29] LABS: INR 3.58; PROTIME 40.8 Seconds (9.2-11.7)
[2016-11-15 07:03] LABS: CALCIUM 8.3 mg/dL (8.8-10.2); POTASSIUM 4.2 mmol/L (3.5-5.1)
[2016-11-15] MEDS ORDERED: VITAMIN K SUBQ ONE (08:15)
[2016-11-15] MEDS: XANAX PO SCH ×3 (08:23→17:25)
[2016-11-15] MEDS: ZYLOPRIM PO SCH (08:23)
[2016-11-15] MEDS: COLACE PO SCH (08:23)
[2016-11-15] MEDS: NEURONTIN PO SCH ×3 (08:23→17:25)
[2016-11-15] MEDS: PROZAC PO SCH (08:23)
[2016-11-15] MEDS: PREDNISONE PO SCH (08:23)
[2016-11-15] MEDS: THERA M PLUS PO SCH (08:23)
[2016-11-15] MEDS: LOPRESSOR PO SCH (08:24)
[2016-11-15] MEDS: LASIX PO SCH (08:24)
[2016-11-15] MEDS: JANUVIA PO SCH (08:24)
--- NOTE | 2016-11-15 09:17 | PROGRESS NOTE ---
DATE: 11/15/2016 SUBJECTIVE: The patient was admitted for intractable pain on the face due to [place] syndrome and shingles. She was given steroid shot and sent home. Not able to do any activities. Unable to get an IV access. INR was high. She is complaining of intractable facial pain. PAST MEDICAL HISTORY AND MEDICINES: Reviewed. OBJECTIVE: Vital Signs: On examination, vitals are stable. Blood pressure is high. HEENT Exam: She has a rash out on the pinna on the face. Facial nerve is intact. Neck: Supple. Chest: Clear. Heart: Sounds are regular. Abdomen: Belly is soft. Has colostomy bag seen. Extremities: No peripheral edema, cyanosis. Neurologic: No obvious neurological deficits. INVESTIGATIONS: CBC: White cell count 8.9, hematocrit 42, platelets 248. PT 40, INR 3.5. SMA 7: Sodium 142, potassium 4.2, chloride 102, BUN 37, creatinine 2.1, glucose 128, calcium 8.3. ASSESSMENT AND PLAN: 1. Left facial nerve shingles. Porter's palsy is not evident. Continue on intravenous Zovirax with adjusted doses. Pain control with gabapentin and hydromorphone. Poor intravenous access. INR is high. Vitamin K. Will put a PICC line. 2. Type 2 diabetes on Januvia. Out of the bed with physical therapy. 3. Polymyalgia rheumatica on prednisone. Will follow up on the labs. LEVEL OF DOCUMENTATION: 25 minutes. cc: Van Rebolledo MD
[2016-11-15] MEDS: POTASSIUM CHLORIDE 10 MEQ in NS 1,000 ML IV SCH ×2 (10:04→15:38)
[2016-11-15] MEDS: ZOVIRAX 500 MG in NS 100 ML IV SCH (10:04)
[2016-11-15 12:51] LABS: URINE SOURCE CATH
[2016-11-15 12:56] LABS: BILIRUBIN URINE NEGATIVE (NEGATIVE); BLOOD URINE MODERATE (NEGATIVE); CLARITY CLEAR (CLEAR); COLOR STRAW; GLUCOSE URINE NEGATIVE (NEGATIVE); LEUKOCYTES URINE SMALL (NEGATIVE); NITRITE URINE NEGATIVE (NEGATIVE); PH URINE 5.5; PROTEIN URINE NEGATIVE (NEGATIVE); UROBILINOGEN URINE 0.2 EU/dL (0.2-1.0)
[2016-11-15 13:02] LABS: URINE CULTURE NEEDED? YES
[2016-11-15 13:03] LABS: URINE EPITHELIAL CELLS <10 /HPF (<10)
[2016-11-15 13:04] LABS: URINE CAST NONE SEEN /LPF; URINE CRYSTAL NONE SEEN /HPF
[2016-11-15] MEDS: MELATONIN PO SCH (22:51)
[2016-11-16] MEDS: POTASSIUM CHLORIDE 10 MEQ in NS 1,000 ML IV SCH ×2 (05:18→17:05)
[2016-11-16] MEDS: RYTHMOL PO SCH ×3 (05:18→21:41)
[2016-11-16] MEDS: DILAUDID IV PRN ×5 (05:20→22:51)
[2016-11-16] MEDS: SYNTHROID PO SCH ×2 (05:22→06:41)
[2016-11-16] MEDS: HUMULIN R SUBQ SCH ×4 (06:41→21:41)
[2016-11-16 07:13] LABS: INR 1.77; PROTIME 19.3 Seconds (9.2-11.7)
[2016-11-16 07:16] LABS: BASO% 1.1 % (0.0-0.8); EOS# 0.28 X1000 (0.0-0.7); EOS% 3.5 % (0.0-10.0); HEMATOCRIT 39.7 % (37.0-47.0); HEMOGLOBIN 12.8 g/dL (12.0-16.0); IMM GRAN# 0.07 X1000 (0.0-0.04); IMM GRAN% 0.9 % (0.0-0.5); LYMPH% 33.8 % (20.5-51.1); MANUAL DIFF NEEDED? YES; MCH 33.4 PG (27-31); MCHC 32.2 g/dL (33-37); MCV 103.7 FL (81-99); MONO# 0.87 X1000 (0.11-0.59); MONO% 10.9 % (1.7-9.3); NEUT% 49.8 % (42.2-75.2); PLT 196 X1000 (130-400); RBC 3.83 XMIL (4.2-5.4)
[2016-11-16 07:35] LABS: CALCIUM 8.3 mg/dL (8.8-10.2); POTASSIUM 4.2 mmol/L (3.5-5.1)
[2016-11-16 08:08] LABS: BANDS 2 % (0-1); LYMPHS 36 % (21-51); MONO 6 % (1-9)
--- NOTE | 2016-11-16 08:36 | PROGRESS NOTE ---
DATE: 11/16/2016 SUBJECTIVE: The pain is somewhat improved on the left face from the shingles. Significant rash and ear canal was inflamed. No evidence of facial nerve weakness noted. REVIEW OF SYSTEMS: None reported. PHYSICAL EXAMINATION: Vital Signs: Stable. HEENT: Left facial shingles rash. Neck: Supple. Chest: Clear. Heart: Sounds are regular. Abdomen: Belly is soft, nontender. Good bowel sounds. Neurological: No neurological deficits noted. LABORATORY DATA: CBC: White cell count 8, hematocrit 39, platelets 196,000. INR is 1.7. SMA-7: Sodium 137, potassium 4.2, chloride 99, BUN 33, creatinine 2, glucose 86. ASSESSMENT AND PLAN: 1. Left-sided facial nerve shingles. No Porter palsy noted. Intravenous Zovirax , continue on prednisone 5 mg daily. Secondary infection, started on intravenous Zosyn. Pain control with hydromorphone. 2. Poor intravenous access, currently stable. 3. History of deep vein thrombosis and paroxysmal atrial fibrillation on warfarin that was stopped. 4. Type 2 diabetes on Januvia. DISPOSITION: Once the pain is adequately controlled, able to walk, we will discuss with the family about going for LTAC versus outpatient rehab. Discussed with the patient. LEVEL OF DOCUMENTATION: The level of documentation was 25 minutes. cc: Van Rebolledo MD MTDHal
[2016-11-16] MEDS ORDERED: NS 250 ML ONE (08:44)
[2016-11-16] MEDS: LASIX PO SCH (10:05)
[2016-11-16] MEDS: NEURONTIN PO SCH ×3 (10:05→17:04)
[2016-11-16] MEDS: PREDNISONE PO SCH (10:05)
[2016-11-16] MEDS: JANUVIA PO SCH (10:06)
[2016-11-16] MEDS: XANAX PO SCH ×3 (10:06→17:04)
[2016-11-16] MEDS: LOPRESSOR PO SCH (10:06)
[2016-11-16] MEDS: PROZAC PO SCH (10:06)
[2016-11-16] MEDS: THERA M PLUS PO SCH (10:06)
[2016-11-16] MEDS: COLACE PO SCH (10:06)
[2016-11-16] MEDS: ZOSYN 2.25 GM/NS 2.25 GM/50 ML IVPB IV SCH ×2 (10:06→17:05)
[2016-11-16] MEDS: ZYLOPRIM PO SCH (10:06)
--- NOTE | 2016-11-16 10:08 | Diag Imaging Result Doc PS360 ---
EXAM: CHEST-PORTABLE HISTORY: Pic Placement TECHNIQUE: AP upright portable at 0955 COMMENT: There is a right-sided PICC line with its tip in the superior vena cava about the level of the azygos vein. There are granulomatous calcifications in the right tracheobronchial region and right upper lobe. No significant changes occurred in the appearance of the chest since 09/06/2016. IMPRESSION: Granulomatous changes. No evidence of acute disease. Electronically signed by Shahab Krishnan 11/16/2016 10:06 AM
[2016-11-16] MEDS: ZOVIRAX 500 MG in NS 100 ML IV SCH ×2 (10:50→23:45)
[2016-11-16] MEDS: PHENERGAN IV PRN (13:40)
[2016-11-16] MEDS: MELATONIN PO SCH (21:41)
[2016-11-17] MEDS: ZOSYN 2.25 GM/NS 2.25 GM/50 ML IVPB IV SCH ×3 (03:35→17:47)
[2016-11-17] MEDS: RYTHMOL PO SCH ×3 (05:52→20:16)
[2016-11-17] MEDS: SYNTHROID PO SCH ×2 (05:53→19:43)
[2016-11-17 06:39] LABS: INR 1.18; PROTIME 12.5 Seconds (9.2-11.7)
--- NOTE | 2016-11-17 09:14 | PROGRESS NOTE ---
DATE: 11/17/2016 SUBJECTIVE: The patient was a little bit confused last night. More lucid. Pain is better on the left side of the face. Had a PICC line on the right side. Chest x-ray was stable. She is bedridden. Coumadin was stopped. REVIEW OF SYSTEMS: None reported. PHYSICAL EXAMINATION: Vital Signs: Stable. Temperature is 98 degrees. HEENT: Exam revealed left-sided rash is improving, as well as swelling over the left pinna. Facial nerve is intact. Chest: Clear. Heart: Sounds are regular. Abdomen: Belly is soft with colostomy bag seen. Extremities: No edema, cyanosis or clubbing. Neurologic: Nonfocal. INVESTIGATIONS: INR is 1.1. Urine cultures were positive with E coli sensitive to Zosyn, ESBL negative. ASSESSMENT AND PLAN: 1. Left-sided seventh nerve shingles. Intravenous Zovirax and oral prednisone. 2. Localized infection, as well as urinary tract infection. Continue with Zosyn. 3. History of paroxysmal atrial fibrillation and deep vein thrombosis. We will start on Coumadin. 4. Deconditioning. Increasing the physical activity. 5. Polymyalgia rheumatica. Check the sedimentation rate on prednisone 5 mg daily. Plan of care today: Out of the bed with physical therapy and continue present care. LEVEL OF DOCUMENTATION: 25 minutes. cc: Van Rebolledo MD
[2016-11-17] MEDS: ZYLOPRIM PO SCH (10:00)
[2016-11-17] MEDS: LOPRESSOR PO SCH (10:00)
[2016-11-17] MEDS: PROZAC PO SCH (10:00)
[2016-11-17] MEDS: NEURONTIN PO SCH ×4 (10:00→20:17)
[2016-11-17] MEDS: THERA M PLUS PO SCH (10:00)
[2016-11-17] MEDS: LASIX PO SCH (10:00)
[2016-11-17] MEDS: JANUVIA PO SCH (10:01)
[2016-11-17] MEDS: PREDNISONE PO SCH (10:01)
[2016-11-17] MEDS: COLACE PO SCH (10:01)
[2016-11-17] MEDS ORDERED: ZOFRAN IV PRN (10:29)
[2016-11-17] MEDS: ZOVIRAX 500 MG in NS 100 ML IV SCH (12:28)
[2016-11-17] MEDS: XANAX PO SCH ×4 (12:29→16:58)
[2016-11-17] MEDS: POTASSIUM CHLORIDE 10 MEQ in NS 1,000 ML IV SCH (12:29)
[2016-11-17] MEDS: HUMULIN R SUBQ SCH ×2 (15:02→15:38)
[2016-11-17] MEDS: DILAUDID IV PRN ×2 (16:15→20:16)
[2016-11-17] MEDS: MELATONIN PO SCH (20:16)
[2016-11-17] MEDS: COUMADIN PO SCH (20:17)
[2016-11-18] MEDS: HUMULIN R SUBQ SCH ×5 (01:05→21:43)
[2016-11-18] MEDS: ZOVIRAX 500 MG in NS 100 ML IV SCH ×3 (01:13→23:17)
[2016-11-18] MEDS: ZOSYN 2.25 GM/NS 2.25 GM/50 ML IVPB IV SCH ×3 (01:14→17:09)
[2016-11-18] MEDS: POTASSIUM CHLORIDE 10 MEQ in NS 1,000 ML IV SCH ×2 (06:06→10:49)
[2016-11-18] MEDS: RYTHMOL PO SCH ×3 (06:07→20:01)
[2016-11-18] MEDS: SYNTHROID PO SCH (06:07)
[2016-11-18] MEDS: DILAUDID IV PRN ×3 (07:25→17:33)
[2016-11-18 07:42] LABS: BASO% 0.2 % (0.0-0.8); EOS# 0.27 X1000 (0.0-0.7); EOS% 3.2 % (0.0-10.0); HEMOGLOBIN 11.9 g/dL (12.0-16.0); IMM GRAN# 0.03 X1000 (0.0-0.04); IMM GRAN% 0.4 % (0.0-0.5); LYMPH# 1.45 X1000 (1.2-3.4); LYMPH% 17.3 % (20.5-51.1); MANUAL DIFF NEEDED? YES; MCHC 31.3 g/dL (33-37); MCV 105.3 FL (81-99); MONO# 0.57 X1000 (0.11-0.59); MONO% 6.8 % (1.7-9.3); MPV 10.1 FL (7.4-10.4); NEUT% 72.1 % (42.2-75.2); PLT 199 X1000 (130-400); RBC 3.61 XMIL (4.2-5.4)
[2016-11-18 07:46] LABS: INR 1.07; PROTIME 11.3 Seconds (9.2-11.7)
[2016-11-18 07:59] LABS: BANDS 2 % (0-1); EOS 2 % (1-10); HYPOCHROM 2+; LYMPHS 32 % (21-51); MONO 2 % (1-9)
[2016-11-18 08:21] LABS: CALCIUM 8.3 mg/dL (8.8-10.2); POTASSIUM 3.5 mmol/L (3.5-5.1)
[2016-11-18 08:45] LABS: SED RATE 72 mm/hr (0-20)
--- NOTE | 2016-11-18 09:08 | PROGRESS NOTE ---
DATE: 11/18/2016 SUBJECTIVE: The patient is not doing very well. Continues to be in the bed with pain. Discussed with the patient and family, they want go for_ rehab. Pain is getting better. She is getting confusion with Phenergan for nausea. She has history of polymyalgia rheumatica. OBJECTIVE: Vital Signs: Afebrile, stable. HEENT: Left-sided face rash is getting better. Chest: Clear. Heart: Sounds are regular. Abdomen: Belly is soft, obese, nontender. Good bowel sounds. No masses palpable. Extremities: No peripheral edema, cyanosis. Neurologic: No obvious neurological deficits. INVESTIGATIONS: CBC: White cell count 8.3, hematocrit 38, platelets 199,000. Sedimentation rate was pending. PT 11, INR 1.0. SMA 7: BUN 24, creatinine 1.6. Urine tract infection with E. coli. ASSESSMENT AND PLAN: 1. Left-sided 7th nerve shingles. Continue IV Zovirax. 2. Chronic kidney disease, stable. 3. Deep vein thrombosis with paroxysmal atrial fibrillation. We will start on Coumadin. 4. Peripherally inserted central catheter line on the right side. 5. Polymyalgia rheumatica. Check the sedimentation rate. Increase the Solu- Medrol. 6. Deconditioning. Aggressive physical therapy. 7. Disposition the patient refused to go for rehab. Discussed with the family. LEVEL OF DOCUMENTATION: Plan of care is about 25 minutes. cc: MD DIANE Patel
[2016-11-18] MEDS: SOLU-MEDROL IV SCH ×2 (10:42→17:09)
[2016-11-18] MEDS: PROZAC PO SCH (10:43)
[2016-11-18] MEDS: COLACE PO SCH (10:43)
[2016-11-18] MEDS: ZYLOPRIM PO SCH (10:43)
[2016-11-18] MEDS: JANUVIA PO SCH (10:43)
[2016-11-18] MEDS: XANAX PO SCH ×3 (10:43→20:02)
[2016-11-18] MEDS: NEURONTIN PO SCH ×3 (10:44→17:08)
[2016-11-18] MEDS: THERA M PLUS PO SCH (10:44)
[2016-11-18] MEDS: LASIX PO SCH (10:44)
[2016-11-18] MEDS: LOPRESSOR PO SCH (10:44)
[2016-11-18] MEDS: MELATONIN PO SCH (20:02)
[2016-11-18] MEDS: COUMADIN PO SCH (20:02)
[2016-11-19] MEDS: SOLU-MEDROL IV SCH ×3 (01:08→17:06)
[2016-11-19] MEDS: ZOSYN 2.25 GM/NS 2.25 GM/50 ML IVPB IV SCH ×3 (01:08→17:06)
[2016-11-19] MEDS: POTASSIUM CHLORIDE 10 MEQ in NS 1,000 ML IV SCH ×3 (01:10→16:57)
[2016-11-19] MEDS: RYTHMOL PO SCH ×3 (05:47→21:22)
[2016-11-19] MEDS: HUMULIN R SUBQ SCH ×4 (06:00→21:36)
[2016-11-19] MEDS: SYNTHROID PO SCH (06:00)
[2016-11-19 06:45] LABS: INR 1.03; PROTIME 10.8 Seconds (9.2-11.7)
[2016-11-19] MEDS: DILAUDID IV PRN ×3 (08:03→21:43)
[2016-11-19] MEDS: XANAX PO SCH ×3 (08:04→18:36)
[2016-11-19] MEDS: JANUVIA PO SCH (08:04)
[2016-11-19] MEDS: LASIX PO SCH (08:07)
[2016-11-19] MEDS: PROZAC PO SCH (08:07)
[2016-11-19] MEDS: LOPRESSOR PO SCH (08:07)
[2016-11-19] MEDS: COLACE PO SCH (08:07)
[2016-11-19] MEDS: THERA M PLUS PO SCH (08:07)
[2016-11-19] MEDS: NEURONTIN PO SCH ×3 (08:07→17:06)
[2016-11-19] MEDS: ZYLOPRIM PO SCH (08:07)
[2016-11-19] MEDS: ZOVIRAX 500 MG in NS 100 ML IV SCH ×2 (11:39→22:57)
--- NOTE | 2016-11-19 12:41 | PROGRESS NOTE ---
DATE: 11/19/2016 SUBJECTIVE: Nurses reporting she is confused. Follow-up pending labs. Sedimentation rate was 75. She complains of headache, still bedridden, not able to walk very well with assistance. Discussed with the family on the telephone. REVIEW OF SYSTEMS: Headache, confusion, weakness, deconditioned. PHYSICAL EXAMINATION: Vital Signs: Afebrile. Vitals are stable. HEENT: Rash is fading away as well as redness over the left pinna. General: Heavy set. Patient is lucid. Chest is clear to auscultation. Heart sounds are regular. Belly is soft, nontender. Good bowel sounds. No masses palpable. No peripheral edema, cyanosis. No obvious neurological deficits. INVESTIGATIONS: Sedimentation rate was 72. PT 10. INR 1.0. Urine cultures: Escherichia coli. ASSESSMENT AND PLAN: 1. Left-sided 7th nerve shingles. No facial nerve involvement. Continue on IV steroids, IV Zocor. Improving. 2. Polymyalgia rheumatica, elevated sedimentation rate. IV steroids from p.o. prednisone. 3. Deep venous thrombosis/PAF. We started her on warfarin 3 mg daily. 4. Deconditioning. Improve the activity with assistance. DISPOSITION: Discussed with the family. Patient is refusing to go for rehab. We will discharge on Monday with home health care with other options. Continue present medical therapy. Level of documentation is 25 minutes. cc: Van Rebolledo MD
[2016-11-19] MEDS: MELATONIN PO SCH (21:22)
[2016-11-19] MEDS: COUMADIN PO SCH (21:22)
[2016-11-20] MEDS: SOLU-MEDROL IV SCH ×3 (00:42→17:23)
[2016-11-20] MEDS: ZOSYN 2.25 GM/NS 2.25 GM/50 ML IVPB IV SCH ×3 (00:42→17:22)
[2016-11-20] MEDS: POTASSIUM CHLORIDE 10 MEQ in NS 1,000 ML IV SCH (02:09)
[2016-11-20] MEDS: SYNTHROID PO SCH ×2 (05:58→06:30)
[2016-11-20] MEDS: RYTHMOL PO SCH ×3 (05:58→20:19)
[2016-11-20] MEDS: HUMULIN R SUBQ SCH ×4 (06:01→21:31)
--- NOTE | 2016-11-20 08:06 | PROGRESS NOTE ---
DATE: 11/20/2016 SUBJECTIVE: Complaints of headache on the left side from the shingles. PMR symptoms slowly improving after prednisone. Still bedridden. Awake. Mental confusion is improving. PHYSICAL EXAMINATION: Vital Signs: Stable. HEENT: Rash is fading away. Neck: Supple. Chest: Clear. Heart: Sounds are regular. Abdomen: Belly is soft, obese, nontender. Extremities: No peripheral edema, cyanosis, clubbing. ASSESSMENT AND PLAN: 1. Polymyalgia rheumatica. IV steroids. 2. Shingles on the left side. IV Zovirax, IV steroids, and Neurontin. 3. Urinary tract infection. On Zosyn. 4. Plan of care: Out of the bed with assistance. We will follow up the labs in 24 hours. LEVEL OF DOCUMENTATION: 15 minutes. cc: Van Rebolledo MD
[2016-11-20] MEDS: DILAUDID IV PRN ×3 (08:57→20:27)
[2016-11-20] MEDS: NEURONTIN PO SCH ×3 (08:58→17:23)
[2016-11-20] MEDS: COLACE PO SCH (08:58)
[2016-11-20] MEDS: XANAX PO SCH ×3 (08:58→17:23)
[2016-11-20] MEDS: LOPRESSOR PO SCH (08:58)
[2016-11-20] MEDS: JANUVIA PO SCH (08:58)
[2016-11-20] MEDS: ZYLOPRIM PO SCH (08:58)
[2016-11-20] MEDS: PROZAC PO SCH (08:58)
[2016-11-20] MEDS: LASIX PO SCH (08:58)
[2016-11-20] MEDS: THERA M PLUS PO SCH (08:58)
[2016-11-20] MEDS: ZOVIRAX 500 MG in NS 100 ML IV SCH ×2 (11:35→22:56)
[2016-11-20] MEDS: COUMADIN PO SCH (20:19)
[2016-11-20] MEDS: MELATONIN PO SCH (20:19)
[2016-11-21] MEDS: SOLU-MEDROL IV SCH ×3 (00:40→16:22)
[2016-11-21] MEDS: ZOSYN 2.25 GM/NS 2.25 GM/50 ML IVPB IV SCH ×3 (00:40→16:23)
[2016-11-21] MEDS: POTASSIUM CHLORIDE 10 MEQ in NS 1,000 ML IV SCH ×3 (00:41→21:00)
[2016-11-21 07:35] LABS: INR 1.18; PROTIME 12.5 Seconds (9.2-11.7)
[2016-11-21] MEDS: RYTHMOL PO SCH ×3 (07:45→20:59)
[2016-11-21] MEDS: HUMULIN R SUBQ SCH ×4 (07:45→21:00)
[2016-11-21] MEDS: SYNTHROID PO SCH (07:46)
[2016-11-21 08:20] LABS: BASO% 0.1 % (0.0-0.8); HEMATOCRIT 35.5 % (37.0-47.0); IMM GRAN# 0.14 X1000 (0.0-0.04); IMM GRAN% 1.3 % (0.0-0.5); LYMPH# 1.24 X1000 (1.2-3.4); LYMPH% 11.7 % (20.5-51.1); MANUAL DIFF NEEDED? YES; MCH 32.7 PG (27-31); MCV 105.7 FL (81-99); MONO# 0.28 X1000 (0.11-0.59); MONO% 2.6 % (1.7-9.3); MPV 10.3 FL (7.4-10.4); NEUT% 84.3 % (42.2-75.2); PLT 259 X1000 (130-400); RBC 3.36 XMIL (4.2-5.4)
[2016-11-21 08:22] LABS: CALCIUM 8.4 mg/dL (8.8-10.2); POTASSIUM 4.5 mmol/L (3.5-5.1)
[2016-11-21 08:45] LABS: LYMPHS 17 % (21-51); MONO 4 % (1-9)
[2016-11-21] MEDS: XANAX PO SCH ×3 (09:09→16:22)
[2016-11-21] MEDS: PROZAC PO SCH (09:10)
[2016-11-21] MEDS: LOPRESSOR PO SCH (09:10)
[2016-11-21] MEDS: NEURONTIN PO SCH ×3 (09:10→16:32)
[2016-11-21] MEDS: COLACE PO SCH (09:10)
[2016-11-21] MEDS: ZYLOPRIM PO SCH (09:10)
[2016-11-21] MEDS: JANUVIA PO SCH (09:10)
[2016-11-21] MEDS: THERA M PLUS PO SCH (09:11)
--- NOTE | 2016-11-21 09:29 | PROGRESS NOTE ---
DATE: 11/21/2016 SUBJECT: Patient is extremely weak. Refused to go for physical therapy. The family is insisting to go for rehab. Pain is better out of the bed. PHYSICAL EXAMINATION: Vital Signs: Stable. HEENT: Within normal limits. Rash is improving on the left side of the face. Chest: Clear. Heart: Sounds are regular. Abdomen : Belly is soft, nontender. Good bowel sounds. Extremities: No peripheral edema, cyanosis, clubbing. Neurologic: No obvious neurological deficits. INVESTIGATIONS: CBC: White cell count 10, hematocrit 35, platelets 259,000. PT 12, INR 1.1. SMA 7: Sodium 140, potassium 4.5, BUN 52, creatinine 2.4. ASSESSMENT AND PLAN: 1. Left-sided shingles at 7 th nerve facial nerve Discontinue Zovirax and change to Famvir 500 p.o. b.i.d. 2. Polymyalgia rheumatica. Follow up on sed rate on steroids. 3. Deep vein thrombosis/paroxysmal atrial fibrillation. On warfarin 3 mg daily. PICC line on the right side. 4. Disposition. Patient wants to go home with outpatient home health. Improve the physical activity. Continue present medical therapy. cc: Van Rebolledo MD MTDD
[2016-11-21] MEDS: DILAUDID IV PRN ×3 (10:46→21:01)
[2016-11-21] MEDS: FAMVIR PO SCH ×2 (10:48→20:59)
[2016-11-21] MEDS: LASIX PO SCH (10:49)
[2016-11-21] MEDS: MELATONIN PO SCH (20:59)
[2016-11-21] MEDS: COUMADIN PO SCH (21:00)
[2016-11-21] MEDS: TYLENOL PO PRN (23:03)
[2016-11-22] MEDS: ZOSYN 2.25 GM/NS 2.25 GM/50 ML IVPB IV SCH ×3 (00:44→16:50)
[2016-11-22] MEDS: SOLU-MEDROL IV SCH ×3 (00:45→16:48)
[2016-11-22] MEDS: DILAUDID IV PRN ×6 (01:18→23:00)
[2016-11-22] MEDS: POTASSIUM CHLORIDE 10 MEQ in NS 1,000 ML IV SCH ×2 (05:52→11:04)
[2016-11-22] MEDS: RYTHMOL PO SCH ×3 (05:53→22:00)
[2016-11-22] MEDS: SYNTHROID PO SCH (05:59)
[2016-11-22] MEDS: HUMULIN R SUBQ SCH ×4 (06:03→22:00)
--- NOTE | 2016-11-22 09:00 | PROGRESS NOTE ---
DATE: 11/22/2016 SUBJECTIVE: The patient is out of bed. Complains of dizziness, headache. Deconditioned. Not able to walk on her own. She lives by herself. Finally decided to go for rehab. REVIEW OF SYSTEMS: None reported. PHYSICAL EXAMINATION: Vital Signs: Stable. Is and Os: Positive 1.7 L. HEENT: Examination within normal limits. A rash on the left side of the face. Neck: Supple. No lymphadenopathy. Chest: Clear to auscultation. Heart: Heart sounds are regular. Abdomen: Belly is soft, obese, nontender. Good bowel sounds. Extremities: No peripheral edema. Neurologic: No obvious neurological deficits. INVESTIGATIONS: Sedimentation rate was 72. Labs are pending. ASSESSMENT AND PLAN: 1. Polymyalgia rheumatica. Continue on intravenous steroids. 2. Left-sided face shingles at the 7th nerve distribution. Facial nerve is intact. Continue on Famvir. 3. Chronic kidney disease, stable. PLAN OF CARE: Check the CBC, sedimentation rate, SMA 7, PT/INR in the morning. building services technician consult for rehab placement. LEVEL OF DOCUMENTATION: 25 minutes. cc: Van Rebolledo MD
[2016-11-22] MEDS: PROZAC PO SCH (10:08)
[2016-11-22] MEDS: THERA M PLUS PO SCH (10:09)
[2016-11-22] MEDS: LOPRESSOR PO SCH (10:10)
[2016-11-22] MEDS: XANAX PO SCH ×4 (10:10→18:41)
[2016-11-22] MEDS: JANUVIA PO SCH (10:11)
[2016-11-22] MEDS: ZYLOPRIM PO SCH (10:11)
[2016-11-22] MEDS: FAMVIR PO SCH ×2 (10:11→22:00)
[2016-11-22] MEDS: LASIX PO SCH (10:11)
[2016-11-22] MEDS: NEURONTIN PO SCH ×3 (10:11→18:32)
[2016-11-22] MEDS: COLACE PO SCH (10:11)
[2016-11-22] MEDS: MELATONIN PO SCH (22:00)
[2016-11-22] MEDS: COUMADIN PO SCH (22:00)
[2016-11-23] MEDS: ZOSYN 2.25 GM/NS 2.25 GM/50 ML IVPB IV SCH ×2 (00:24→10:02)
[2016-11-23] MEDS: SOLU-MEDROL IV SCH ×2 (00:24→10:01)
[2016-11-23] MEDS: POTASSIUM CHLORIDE 10 MEQ in NS 1,000 ML IV SCH (00:25)
[2016-11-23] MEDS: RYTHMOL PO SCH (05:48)
[2016-11-23] MEDS: SYNTHROID PO SCH (06:05)
[2016-11-23] MEDS: HUMULIN R SUBQ SCH (06:34)
[2016-11-23 07:15] VITALS: BP 145/68
[2016-11-23 07:16] LABS: CALCIUM 8.1 mg/dL (8.8-10.2); POTASSIUM 4.8 mmol/L (3.5-5.1)
[2016-11-23] MEDS: DILAUDID IV PRN ×2 (08:46→10:41)
--- NOTE | 2016-11-23 08:52 | DISCHARGE SUMMARY ---
ADMISSION DATE: 11/13/2016 DISCHARGE DATE: 11/23/2016 DISCHARGING DIAGNOSIS: Left-sided shingles at 7th nerve distribution. SECONDARY DIAGNOSES: 1. Urinary tract infection with Escherichia coli. 2. Polymyalgia rheumatica, elevation of sedimentation rate. 3. Chronic renal failure, baseline creatinine 1.8. 4. Paroxysmal atrial fibrillation. 5. History of deep vein thrombosis in the left leg. 6. History of pelvic fracture in the left sacral area. 7. Diverticulosis. 8. Gout. 9. Hyperlipidemia. 10. Varicose veins. 11. Type 2 diabetes. 12. History of endometritis, better. 13. Metabolic syndrome. BRIEF HISTORY: Please see the H and P that was done by Dr. Masy. PROCEDURES: PICC line on the right side. HOSPITAL COURSE: In brief, she is a 81-year-old white female who was admitted to the hospital with intractable headache and facial pain. Subsequently, she developed a rash consistent with shingles. The distribution of the rash is around the 7th nerve. She did not have Porter palsy. Her hospital course was deconditioned due to pain, UTI, and exacerbation of PMR. She has a poor IV access. PICC line was placed on the right side. She was given IV fluids, IV Zovirax, IV steroids, and also for UTI, Zosyn. The patient continues to be weak and deconditioned, and the family wants to go for rehab for convalescence at [facility] today. DIAGNOSTIC DATA: Labs at the time of discharge are as follows: CBC: White cell count 10, hematocrit 35, platelets 259,000. Sedimentation rate was 50. PT 12 and INR 1.2. SMA-7: Sodium 140, potassium 4.8, chloride 104, BUN 70, creatinine 2.1, glucose 221. CRP 9.9. Urine cultures grew Escherichia coli sensitive to Macrobid and Zosyn. PLAN: The patient is slowly improving, and the instructions are to discontinue PICC line and Gaines prior to discharge. DISCHARGE INSTRUCTIONS AND MEDICATIONS: The discharging instructions are as follows: 1. Follow up in my office in [address] Hester is going to monitor her at [facility]. 3. Physical therapy. 4. Melatonin 3 mg every night at bedtime. 5. Prozac 40 daily. 6. Rythmol 150 every 8 hours. 7. Colace 100 mg daily. 8. Metoprolol 50 daily. 9. Zyloprim 200 daily. 10. Januvia 100 daily. 11. Prednisone 5 mg daily. 12. Neurontin 300 p.o. t.i.d. 13. Warfarin 3 mg daily. 14. Synthroid 50 mcg daily. 15. Zofran as needed. 16. Tylenol for p.r.n. pain. 17. Hold the Lasix. 18. Multivitamins 1 tablet daily. 19. Famvir 500 p.o. b.i.d. for 5 days. 20. Macrobid 50 p.o. b.i.d. for 7 days. 21. Check the CBC, SMA-7, and PT and INR in 3 days. 22. Care of the colostomy site. cc: Van Rebolledo MD MTDD
[2016-11-23] MEDS: ZYLOPRIM PO SCH (10:00)
[2016-11-23] MEDS: THERA M PLUS PO SCH (10:00)
[2016-11-23] MEDS: FAMVIR PO SCH (10:00)
[2016-11-23] MEDS: PREDNISONE PO SCH (10:00)
[2016-11-23] MEDS: LASIX PO SCH (10:00)
[2016-11-23] MEDS: JANUVIA PO SCH (10:00)
[2016-11-23] MEDS: COLACE PO SCH (10:01)
[2016-11-23] MEDS: NEURONTIN PO SCH (10:02)
[2016-11-23] MEDS: PROZAC PO SCH (10:02)
[2016-11-23] MEDS: LOPRESSOR PO SCH (10:03)
[2016-11-23] MEDS: XANAX PO SCH (10:29)
[2016-11-23] MEDS ORDERED: DILAUDID IV ONE (10:47)
== END 2016-11-23 10:52 ==
LOC: ED 11:51 → 3N 15:04
PROVIDERS: ADMIT Internal Medicine; ATTEND Internal Medicine

== ENCOUNTER 2016-11-26 04:50 | Inpatient (IN) ==
[2016-11-26] MEDS ORDERED: ZOFRAN IV ONE (05:15)
[2016-11-26] MEDS ORDERED: DILAUDID IV ONE ×2 (05:15→08:17)
--- NOTE | 2016-11-26 05:18 | PROVIDER DOCUMENTATION ---
HPI-Abdominal Pain/GI Problem - General Chief Complaint: Vomiting Stated Complaint: abdominal pain Time Seen by Provider: 11/26/16 05:05 Source: patient Unable to obtain history due to:: other (pt does not know her medical history) Allergies/Adverse Reactions: Patient Allergies Allergy/AdvReac Type Severity Reaction Status Date / Time meperidine HCl * AdvReac Intermediate NAUSEA/VOMI Verified 11/26/16 05:05 [From Demerol] TING Home Medications: Home Medication List Medication Instructions Recorded Confirmed Last Taken Type Melatonin 3 mg PO QHS 02/05/13 11/26/16 11/23/16 History Fluoxetine HCl [Prozac] 40 mg PO QAM 11/12/14 11/26/16 11/25/16 History Docusate Sodium [Colace] 100 mg PO DAILY 01/06/15 11/26/16 11/25/16 History Metoprolol [Lopressor] 50 mg PO DAILY 01/06/15 11/26/16 11/25/16 History Propafenone HCl [Rythmol] 150 mg PO Q8HR 01/06/15 11/26/16 11/25/16 History Allopurinol [Zyloprim] 200 mg PO QAM 06/22/15 11/26/16 11/25/16 History Gabapentin [Neurontin] 300 mg PO TID #0 capsule 09/12/16 11/26/16 11/25/16 Rx Levothyroxine [Synthroid] 50 microgm PO DAILY@0700 #0 tablet 09/12/16 11/26/16 11/25/16 Rx Prednisone 5 mg PO DAILY #30 tab.ds.pk 09/12/16 11/26/16 11/25/16 Rx Warfarin [Coumadin] 3 mg PO QHS #0 tablet 09/12/16 11/26/16 11/25/16 Rx Acetaminophen [Tylenol] 650 mg PO Q6H PRN PRN 11/13/16 11/26/16 11/25/16 History Multivitamin [Multiple Vitamins] 1 each PO DAILY 11/13/16 11/26/16 11/25/16 History Ondansetron HCl [Zofran] 4 mg PO Q6HR PRN 11/13/16 11/26/16 11/26/16 History Famciclovir [Famvir] 500 mg PO BID 11/26/16 11/26/16 11/25/16 History Hydrocodone/Acetaminophen [[place] 1 tab PO Q4H PRN 11/26/16 11/26/16 11/25/16 History 7.5-325 Tablet] Nitrofurantoin Monohyd/M-Cryst 100 mg PO BID 11/26/16 11/26/16 11/25/16 History [Macrobid 100 mg Capsule] Sitagliptin [Januvia] 100 mg PO QAM 11/26/16 11/26/16 11/25/16 History - History of Present Illness-ABD Nature of Presenting Problems: Severe sharp LLQ pain, started yest pm. Pain comes and goes, nothing makes it better, worse, start/stop. He has no idea how long each episode, could be seconds, could be hours. She has had a few episodes of N/V @ home, had prolonged emesis once here. no fever known of Abdominal Pain Onset Location: reports: LLQ Pain Radiation: reports: no radiation Quality of Pain: reports: sharp Onset/Duration: reports: other (hegan yesterday afternoon) Timing: reports: intermittent Activities at Onset: reports: none Exposure to sick contacts?: No Modifying Factors: improves with: nothing Associated Symptoms: reports: denies symptoms Last BM: other (has a colosomy, does not know why) Similar Symptoms Previously?: No Recently seen or treated by another doctor?: No Review of Systems - Adult - REVIEW OF SYSTEMS - ADULT Constitutional: reports: no symptoms reported Eyes: reports: no symptoms reported Ears, Nose, Mouth & Throat: reports: no symptoms reported Cardiovascular: reports: no symptoms reported Respiratory: reports: no symptoms reported Gastrointestinal: reports: see HPI Genitourinary: reports: no symptoms reported Musculoskeletal: reports: no symptoms reported Integumentary: reports: no symptoms reported Neurological: reports: no symptoms reported Psychiatric: reports: no symptoms reported Endocrine: reports: no symptoms reported Hematologic/Lymphatic: reports: no symptoms reported Allergic/Immunologic: reports: no symptoms reported Past History - Adult - PAST MEDICAL HISTORY-ADULT Review of Records: reports: Old Records Reviewed Major Childhood Illnesses: reports: denies history Cardiovascular: reports: A-Fib, blood clots (DVT), CAD, CHF, HTN, hyperlipidemia Respiratory: reports: denies history Gastrointestinal: reports: diverticulosis, other (perf diverticulitis requiring colostomy) Obstetrical/Gynecological: reports: denies history Genitourinary: reports: denies history Musculoskeletal: reports: arthritis (gout; polymyalgia rheumatica), other ( varicose veins in salv[place] legs) Neurological: reports: other (weakness tp bilat legs) Endocrine/Immune: reports: Diabetes, thyroid disorder, other (Vitamin B12 deficiency) Other Conditions: reports: denies history - PRIOR SURGERIES/PROCEDURES Surgical/Procedure History: reports: cholecystectomy, bowel surgery (sigmoid colectomy with end colostomy), orthopedic (extremity) (left shoulder Sx), joint replacement (Salvador knee replacement) - PRIOR HOSPITALIZATIONS Prior Hospitalizations: reports: none - IMMUNIZATION STATUS Childhood Immunizations: See Nurse Assessment Flu Vaccine: See Nurse Assessment - FAMILY HISTORY Family History: other (cirhosis of the liver; arthritis) - SOCIAL HISTORY Smoking: denies Physical Exam-General - PHYSICAL EXAM-ADULT Initial Vital Signs Reviewed: Yes - CONSTITUTIONAL General Appearance: alert, moderate distress - EYES Eyes: PERRL/EOMI, pink conjunctivae - HEAD, EARS, NOSE, MOUTH & THROAT HENMT: normocephalic/atraumatic, moist mucous membranes, normal ENT inspection, pharynx normal - NECK Neck: full range of motion, supple, normal inspection - RESPIRATORY Respiratory: lungs clear, normal breath sounds, no respiratory distress, no accessory muscle use - CARDIOVASCULAR Cardiovascular: regular rate, rhythm - GASTROINTESTINAL (ABDOMEN) Abdominal Exam: normal bowel sounds, soft, tenderness (mild to suprapubic, mod- sev LLQ. 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 Did not know much of her medical hx, either from past, or current illness) Progress - PLAN OF CARE/RESULTS Progress/Plan/Lab Results: Vital Signs - 8 hr 11/26/16 05:01 Temperature 98.0 F Pulse Rate 80 Respiratory Rate 23 Blood Pressure 173/83 O2 Sat by Pulse Oximetry 93 L Orders Category Date Time Status EKG [EKG] Stat Ther 11/26/16 05:02 Ordered Result Diagrams: 11/26/16 04:50 11/26/16 04:50 - REASSESSMENT Reassessment #1 Time Reassessed: 06:42 Status: unchanged (Took pt's care over at 6AM. Pt was examined. Pt is stable with pain and N/V controlled.) - CT/MRI 1 CT Study: Abdomen, Pelvis Impression: Abnormal CT Results: Per Dr. Arrington - SBO inside of the clostomy. - CONSULTS/PCP/HOSPITALIST Notification #1 *Consult/PCP/Hospitalist*: Dr. Rodriguez Time Discussed: 06:47 Reason/Comments: Admit to PCP group. Will be specification consultant on this case Consult Disposition: Will see in ED #2 Consult: Dr. Marie Time Discussed: 07:00 Consult Disposition: Admit - CHANGE OF SHIFT REPORT (ED Provider) Report Given and Care Transferred to:: Rogelio Time of Transfer: 06:00 Items Pending: Labs, CT/MRI Results Departure - Departure Date of Disposition Decision: 11/26/16 Time of Disposition Decision: 06:48 DIAGNOSIS: SBO (small bowel obstruction) Disposition: ADMITTED INPATIENT 09 Certified Medical Emergency: Emergent Condition: Serious Referrals and Follow-Ups: None,PCP [Primary Care Provider] - - Critical Care Note This patient required my direct & personal management of CC.: No
[2016-11-26 05:27] LABS: MANUAL DIFF NEEDED? NO
[2016-11-26 05:30] LABS: BASO% 0.1 % (0.0-0.8); EOS# 0.31 X1000 (0.0-0.7); HEMATOCRIT 40.2 % (37.0-47.0); HEMOGLOBIN 12.9 g/dL (12.0-16.0); IMM GRAN% 1.3 % (0.0-0.5); LYMPH# 1.31 X1000 (1.2-3.4); LYMPH% 8.6 % (20.5-51.1); MCH 33.2 PG (27-31); MCHC 32.1 g/dL (33-37); MCV 103.6 FL (81-99); MONO# 0.63 X1000 (0.11-0.59); MONO% 4.2 % (1.7-9.3); MPV 10.1 FL (7.4-10.4); NEUT% 83.8 % (42.2-75.2); PLT 268 X1000 (130-400); RBC 3.88 XMIL (4.2-5.4)
[2016-11-26 05:35] LABS: ALLEN TEST YES; BE 3.4 mmoll (-3.0-3.0); BLOOD TYPE ARTERIAL; DRAW SITE R RADIAL; METHB 1.3 % (0.0-1.5); O2(CT) 17.8 mL/dL (15.0-23.0); PCO2(98.6) 44 mmHg (35-45); PO2(98.6) 87 mmHg (60-100); SAMPLE BLOOD; SAO2 98.1 % (95.0-100.0); THB 13.3 g/dL (11.5-17.4); pH(98.6) 7.42 (7.35-7.45)
[2016-11-26 05:36] LABS: MODALITY CANNULA
[2016-11-26 05:46] LABS: PTT 32.4 Seconds (22.0-36.0)
[2016-11-26 05:51] LABS: INR 2.14; PROTIME 23.6 Seconds (9.2-11.7)
[2016-11-26 05:57] LABS: ALBUMIN 3.3 g/dL (3.5-5.0); CALCIUM 8.8 mg/dL (8.8-10.2); TOTAL BILIRUBIN 0.61 mg/dL (0.20-1.00); TOTAL PROTEIN 6.3 g/dL (6.3-8.3)
[2016-11-26] MEDS ORDERED: NS 1,000 ML IV ONE ×2 (06:12→07:03)
--- NOTE | 2016-11-26 06:40 | Diag Imaging Result Doc PS360 ---
EXAM: ABDOMEN/PELVIS W/O CONTRAST HISTORY: lower abd pain TECHNIQUE: COMPARISON: 12/04/2015 FINDINGS: There are infiltrates and atelectasis in the lower lungs. Heart is enlarged. Trace pleural fluid. The common bile duct is dilated and there is intrahepatic biliary dilatation similar to the prior exam. The gallbladder has been removed. Spleen is not enlarged although there are scattered splenic granuloma. Normal pancreas and adrenal glands. There are multiple small hypo and hyperdense renal lesions similar to the prior exam. No renal stones. No hydronephrosis. Prominent atherosclerosis. No aneurysmal dilatation to the aorta. There is a ostomy in the left lateral abdominal wall containing multiple bowel loops. Several the bowel loops are not dilated where is several other loops are distended with air and fluid. Multiple intra-abdominal loops are also distended with fluid. The colon is not distended. No abscess. The urinary bladder is distended and appears normal. Hypodense area in the fundus of uterus may represent a large fibroid. IMPRESSION: 1.Small bowel obstruction apparently in the ostomy in the left lower quadrant 2.Basilar infiltrates and atelectasis with trace fluid 3.Multiple scattered hypo and hyperdense renal lesions similar to the prior exam 4.A preliminary report was given to Dr. Mercado in the emergency room at 6:35 AM Electronically signed by Guzman Arrington 11/26/2016 6:37 AM
[2016-11-26 06:53] LABS: BILIRUBIN URINE NEGATIVE (NEGATIVE); BLOOD URINE NEGATIVE (NEGATIVE); COLOR YELLOW; GLUCOSE URINE NEGATIVE (NEGATIVE); LEUKOCYTES URINE NEGATIVE (NEGATIVE); NITRITE URINE NEGATIVE (NEGATIVE); PROTEIN URINE NEGATIVE (NEGATIVE); SP GRAVITY URINE 1.014; TURBIDITY URINE CLEAR (CLEAR); URINE CULTURE NEEDED? NO; URINE MICRO REVIEW NEEDED? NO; URINE SOURCE CATH; UROBILINOGEN URINE NORMAL (NORMAL)
[2016-11-26 06:55] LABS: UR EPITHELIAL CELLS <10 /HPF (<10); URINE BACTERIA NEGATIVE /HPF; URINE RBC <10 /HPF (<10); URINE WBC <10 /HPF (<10)
[2016-11-26] MEDS ORDERED: ZOSYN 3.375 GM/NS 3.375 GM/50 ML IVPB IV ONE (07:07)
[2016-11-26] MEDS ORDERED: ZOSYN 3.375 GM/NS 3.375 GM/50 ML IVPB ONE (07:13)
[2016-11-26] MEDS ORDERED: ZOSYN 3.375 GM/NS 3.375 GM/50 ML IVPB IV SCH (07:15)
[2016-11-26] MEDS ORDERED: DILAUDID ONE (08:07)
[2016-11-26] MEDS ORDERED: VITAMIN K SUBQ ONE (08:07)
[2016-11-26] MEDS ORDERED: PHENERGAN ONE (08:08)
[2016-11-26] MEDS ORDERED: PHENERGAN IM ONE (08:17)
--- NOTE | 2016-11-26 08:22 | CONSULTATION ---
DATE OF CONSULTATION: 11/26/2016 REQUESTING PHYSICIAN: Dr. Mercado in the emergency department. CONSULT CONCERNING: Parastomal hernia. 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 She also had an episode of nausea and vomiting. The pain was initially described as sharp and is located around her hernia. Nothing seems improvement, although she has had some pain medicine that has improved it. She had this hernia after a colostomy was done for what sounds like a perforated colon. This was done by my partner, Dr. Byrd, several years ago. She has been too unhealthy to have this reversed. She has also been too unhealthy to have this hernia fixed. She is a patient of Dr. Rebolledo. I was asked to evaluate the patient for an opinion on this. Patient does not have significant amount of tenderness at this time over the left lower quadrant of the hernia. The stoma itself appears to be viable. There is no skin changes noted around the skin. There is a bulge noted. She did have a CT scan that showed this being a potential point for bowel obstruction. PAST MEDICAL HISTORY: Chronic atrial fibrillation, diabetes mellitus, depression, congestive heart failure, hypothyroidism, polymyalgia rheumatica with daily prednisone use. PAST SURGICAL HISTORY: Includes sigmoid colon resection secondary to perforated diverticulitis, cholecystectomy, unspecified orthopedic surgery and joint replacement. SOCIAL HISTORY: Lives in a facility. FAMILY HISTORY: Cirrhosis and cancer. ALLERGIES: Demerol. HOME MEDICATIONS: Reviewed. Of note, patient is on Coumadin. REVIEW OF SYSTEMS: A full 10-point review of systems obtained, negative except as specified in HPI. PHYSICAL EXAMINATION: Vital Signs: Patient is currently afebrile. Her vital signs are stable. General: No acute distress but minimally interactive female. HEENT: Normocephalic, atraumatic. Pupils equal, round, react to light. Mucous membranes moist. Oropharynx benign. Neck: Supple. Trachea midline. Cardiovascular: Irregularly irregular. Lungs: Grossly clear. Abdomen: Soft, nondistended. There appears to be a bulge around her colostomy. There are no skin changes. She does not have significant amount of tenderness in this area. Neurologic: Patient does awaken to converse but is not significantly interactive. VASCULAR: All extremities perfused. Skin: No signs of jaundice. No signs of erythema. LABORATORY: White blood cell count 15, hematocrit is 40, platelet count 268,000. INR 2.14. CT scan independently reviewed and radiology report reviewed. ASSESSMENT/PLAN: A 81-year-old, female with bowel obstruction likely secondary to parastomal hernia. 1. Parastomal hernia. At this time, patient will have an nasogastric tube placed and decompress her abdomen. I had a lengthy discussion with the daughters. The patient has a potential 66% chance risk of complication from this procedure. She is on chronic prednisone, on Coumadin and has significant morbidity with her heart and developing renal issues. I suspect that she is high risk for surgery. Discussed with the family that we could potentially try to observe her for 24 hours with nasogastric tube decompression to see if she improves to potentially reduce this hernia, but I discussed with the family, there is no real good solution to her current problem, they voiced understanding and will follow with our lead. 2. Multiple medical comorbidities. The patient is to be admitted to the intensive care unit to be followed by her primary care physician. cc: Mark Rodriguez MD
--- NOTE | 2016-11-26 10:04 | HISTORY AND PHYSICAL ---
HISTORY OF PRESENT ILLNESS: Ms. Leonardo is a 81-year-old white female, a known case of maturity onset diabetes, who has chronic atrial fibrillation, recurrent congestive heart failure, and had diverticulosis with a partial colectomy and colostomy performed on her by Dr. Byrd in the past. She had a large hernia around the colostomy and had started vomiting since last night. She has severe abdominal pain and had vomiting. She was at [facility], and she was transferred earlier this morning for further management. She was found to have a small bowel obstruction and was seen by Dr. Rodriguez, who wants to operate her as soon as he can. In the meantime, we are doing nasogastric suction on her. She is feeling much better at the present time with the initial treatment from the emergency room. Ms. Leonardo had colostomy following partial resection of the colon by Dr. Byrd. She has had bilateral knee surgery. She had left-sided rotator cuff surgery in the left shoulder and had cholecystectomy. She did not have any other major surgery. She has chronic atrial fibrillation, has been on Coumadin. Her INR was 2.14 with Coumadin. CBC shows leukocytosis. White count was 15.18 with normal electrolyte status; BUN 42 and creatinine 14 this morning. PHYSICAL EXAMINATION: GENERAL: On physical examination, Emelia is alert, somewhat oriented. She is DNR. VITAL SIGNS: Revealed temperature 98 degrees, pulse 80 per minute and irregularly irregular, respiratory rate 23, blood pressure 173/83. HEENT: Head normocephalic. Pupils PERRLA. Fundus examination could not be done. NECK: Supple. JVP normal. ENT examination unremarkable. There is no evidence of lymphadenopathy, thyroid enlargement. MUSCULOSKELETAL: There is mild bilateral leg edema. Pedal pulses are well felt. LUNGS: She has an NG tube which is hooked up to intermittent suction. She is also getting oxygen. BREAST EXAM: Normal. CHEST: Normal. Inspection of lungs reveal occasional bilateral rales. HEART: PMI in the sixth intercostal space outside the midclavicular line. Heart sounds normal. No murmur, gallop or rub noted. ABDOMEN: Abdomen is distended. She has left-sided colostomy with her large hernia. Abdomen is diffusely tender. Bowel sounds are scanty. RECTAL EXAM: Deferred. CREATIVE SERVICES WRITER: Higher functions: Patient is somewhat confused and disoriented at the present time. Cranial nerves normal. Motor and sensory system examination grossly unremarkable. Deep tendon reflexes are sluggish. The skull and spine examination could not be done. Neck supple. SKIN EXAM: This does not show any apparent bruising at the present time. CLINICAL IMPRESSION: Small bowel obstruction. The patient has multitude of other problems, including congestive heart failure, atrial fibrillation, diabetes. PLAN: We will continue to watch her. cc: Chris Hester MD
[2016-11-26] MEDS: ZOFRAN IV PRN ×2 (10:28→22:32)
[2016-11-26] MEDS: DILAUDID IV PRN ×3 (11:04→22:32)
[2016-11-26] MEDS: HUMALOG SUBQ SCH ×3 (11:10→20:45)
[2016-11-26] MEDS: ZOSYN 3.375 GM/NS 3.375 GM/50 ML IVPB IV SCH ×2 (17:04→18:45)
[2016-11-27] MEDS: ZOSYN 3.375 GM/NS 3.375 GM/50 ML IVPB IV SCH ×4 (01:31→18:31)
[2016-11-27] MEDS: DILAUDID IV PRN ×4 (02:28→20:23)
[2016-11-27] MEDS: ZOFRAN IV PRN ×3 (02:28→20:25)
[2016-11-27 05:11] LABS: CALCIUM 8.5 mg/dL (8.8-10.2); POTASSIUM 4.1 mmol/L (3.5-5.1)
[2016-11-27 05:15] LABS: INR 1.28; PROTIME 13.6 Seconds (9.2-11.7)
[2016-11-27 05:16] LABS: BASO% 0.1 % (0.0-0.8); EOS# 0.31 X1000 (0.0-0.7); EOS% 2.2 % (0.0-10.0); HEMATOCRIT 38.3 % (37.0-47.0); IMM GRAN# 0.13 X1000 (0.0-0.04); IMM GRAN% 0.9 % (0.0-0.5); LYMPH# 1.82 X1000 (1.2-3.4); LYMPH% 13.1 % (20.5-51.1); MANUAL DIFF NEEDED? NO; MCH 33.5 PG (27-31); MCHC 31.3 g/dL (33-37); MONO# 0.71 X1000 (0.11-0.59); MONO% 5.1 % (1.7-9.3); MPV 10.1 FL (7.4-10.4); NEUT% 78.6 % (42.2-75.2); PLT 277 X1000 (130-400); RBC 3.58 XMIL (4.2-5.4)
[2016-11-27] MEDS: HUMALOG SUBQ SCH ×5 (06:03→21:30)
--- NOTE | 2016-11-27 07:21 | PROGRESS NOTE ---
DATE: 11/27/2016 SUBJECTIVE: No major issues reported by the nursing staff. The patient reports that she is feeling better and has less pain. OBJECTIVE: Vital Signs: Patient is currently afebrile. Her vital signs have been stable. NG tube has been in place and had almost 2.5 L out since placement. She had a scant amount that come out of her ostomy. General Examination: No acute distress. HEENT: Normocephalic and atraumatic. Pupils equal, round, react to light. Mucous membranes moist. Oropharynx benign. Neck: Supple. Trachea midline. Cardiovascular: Irregularly irregular. Lungs: Grossly clear. Abdomen: Soft, nondistended. The bulge around her ostomy appears to be softer than yesterday. No skin changes noted. She does not have a significant amount of tenderness at this area. Neurologic: More awake this morning than she was previously. Skin: Again, no signs of changes at the ostomy site. Vascular: All extremities perfused. Laboratory: White blood cell count is 13 which is down from 15, hematocrit 38, platelet count 277,000. Creatinine is 2.1. Abdominal film still pending. ASSESSMENT/PLAN: A 81-year-old, female with parastomal hernia and multiple medical comorbidities. 1. Parastomal hernia. At this time, I think she is making some improvement with decompression. I will follow up with this morning's abdominal film to see overall what the clinical picture is doing as far as her bowel distention aspect. We continue to do nonoperative management at this time. She does have some worsening in her kidney function. We will defer that to the primary care team. 2. Multiple medical comorbidities, at this time be managed by the patient's primary care team. We will follow up with their recommendations. I will continue to follow with you closely. cc: MD Van Yates MD
--- NOTE | 2016-11-27 10:43 | Diag Imaging Result Doc PS360 ---
EXAM: ABDOMEN FLAT/UPRIGHT HISTORY: Small bowel obstruction TECHNIQUE: Two views COMPARISON: 02/24/2015 FINDINGS: A nasogastric tube enters the stomach. No free air beneath the diaphragm. There is very little air within the bowel loops. There is scoliosis with degenerative changes. IMPRESSION: Nasogastric tube in the stomach. No bowel obstruction identified. Electronically signed by Guzman Arrington 11/27/2016 10:41 AM
[2016-11-27] MEDS: CLINIMIX E 4.25%-5% SOLUTION 1,000 ML IV SCH (12:30)
[2016-11-27] MEDS: 1/2 NS + KCL 20 MEQ 1,000 ML IV SCH (12:31)
[2016-11-27] MEDS ORDERED: GEODON IM PRN (14:22)
--- NOTE | 2016-11-27 15:21 | PROGRESS NOTE ---
DATE: 11/27/2016 Ms. Leonardo is doing better. Her abdomen is less distended. She was seen by Dr. Rodriguez who thinks her decompression has helped her significantly. Her urine output is low. We are going to start her on Clinimix as well as half normal saline. She is still in pain. We will continue with the current management on her. cc: MD Van Mayorga MD
--- NOTE | 2016-11-27 18:21 | PROGRESS NOTE ---
DATE: 11/27/2016 Ms. Leonardo is resting. Note, she became restless and tried to pull the NJ tube out. She is doing better. Vital signs are stable now. Overall condition is unchanged. cc: MD Van Mayorga MD
[2016-11-27] MEDS: STERILE WATER INJ. INJ PRN (21:07)
[2016-11-28] MEDS: ZOSYN 3.375 GM/NS 3.375 GM/50 ML IVPB IV SCH ×4 (01:11→18:06)
[2016-11-28] MEDS: HUMALOG SUBQ SCH ×5 (02:20→23:10)
[2016-11-28] MEDS: DILAUDID IV PRN ×5 (02:27→20:00)
[2016-11-28] MEDS: CLINIMIX E 4.25%-5% SOLUTION 1,000 ML IV SCH ×2 (04:34→23:06)
[2016-11-28 05:34] LABS: INR 1.08; PROTIME 11.4 Seconds (9.2-11.7)
[2016-11-28 05:45] LABS: BASO% 0.1 % (0.0-0.8); EOS# 0.17 X1000 (0.0-0.7); EOS% 1.5 % (0.0-10.0); HEMATOCRIT 33.6 % (37.0-47.0); HEMOGLOBIN 10.6 g/dL (12.0-16.0); IMM GRAN# 0.09 X1000 (0.0-0.04); IMM GRAN% 0.8 % (0.0-0.5); LYMPH# 1.33 X1000 (1.2-3.4); LYMPH% 11.8 % (20.5-51.1); MANUAL DIFF NEEDED? NO; MCH 34.3 PG (27-31); MCHC 31.5 g/dL (33-37); MCV 108.7 FL (81-99); MONO# 0.56 X1000 (0.11-0.59); MPV 10.2 FL (7.4-10.4); NEUT% 80.8 % (42.2-75.2); PLT 228 X1000 (130-400); RBC 3.09 XMIL (4.2-5.4)
[2016-11-28 05:59] LABS: CALCIUM 8.2 mg/dL (8.8-10.2); POTASSIUM 4.2 mmol/L (3.5-5.1)
--- NOTE | 2016-11-28 07:00 | PROGRESS NOTE ---
DATE: 11/28/2016 SUBJECTIVE: No major issues. The left side of the NG tube reported by the nursing staff, morn urine output urine output noted. The patient is doing okay. She is not hurting at her ostomy site. OBJECTIVE: Vital Signs: Patient is currently afebrile. Her vital signs have been stable. General: No acute distress. HEENT: Normocephalic, atraumatic. Pupils equal, round, reactive to light. Mucous membranes moist. Oropharynx benign. Neck: Supple. Trachea midline. Cardiovascular: Irregularly regular. Lungs: Grossly clear. Abdomen: Soft, nondistended. Fold around the ostomy still appears soft and nontender. No skin changes noted. Ostomy is functioning. LABORATORY: White blood cell count is 11.2 which is down from 13. Hematocrit 33. Platelet count 228,000, INR 1.08. ASSESSMENT/PLAN: A 81-year-old, female with parastomal hernia and multiple medical comorbidities. 1. Parastomal hernia. At this time, I think she is making some improvement. Her overall picture is improving. She did not have an obstructive pattern on the abdominal film yesterday. Her NG tube output is decreased. I will clamp and start her on clear liquids. Likely need to consider restarting her Coumadin in the next few days. 2. Multiple medical comorbidities currently being managed by the primary care team. cc: MD Van Yates MD
--- NOTE | 2016-11-28 07:16 | EKG Report ---
Test Performed on : 11/26/2016 04:58:53 AM Test Reason : abd pain Blood Pressure : / mmHG Vent. Rate : 078 BPM Atrial Rate : 019 BPM P-R Int : 000 ms QRS Dur : 076 ms QT Int : 388 ms P-R-T Axes : 000 016 062 degrees QTc Int : 442 ms Accelerated Junctional rhythm. Nonspecific ST and T wave abnormality Abnormal ECG When compared with ECG of 06-SEP-2016 12:10, Junctional rhythm. has replaced Sinus rhythm. Criteria for Septal infarct are no longer present Unconfirmed Result
[2016-11-28] MEDS: SODIUM CHLORIDE 0.9% INJ SCH (08:05)
[2016-11-28] MEDS: PROTONIX IV SCH (08:05)
--- NOTE | 2016-11-28 09:45 | PROGRESS NOTE ---
DATE: 11/28/2016 LEVEL OF DOCUMENTATION: 35 minutes. Patient was recently discharged from the hospital with left-sided shingles rash on the face in senior care. The patient was brought in over the weekend with nausea, vomiting, and abdominal pain. Interval history was reviewed. Patient had NG tube with low wall suction. She developed bowel obstruction due to parastomal hernia close to the colostomy site. She is sedated with hydromorphone. Review of systems not able to obtain. Discussed with the family. PAST MEDICAL HISTORY, PAST SURGICAL HISTORY, MEDICINES: Were reviewed. PHYSICAL EXAMINATION: Vital Signs: She is afebrile blood pressure is 99 x 73 on 2 L on nasal cannula. She just received 2 mg hydromorphone. Unable to arouse. HEENT: Exam within normal limits. Chest: Is clear. Heart: Heart sounds are regular, belly is soft, nontender. Good bowel sounds and stool present in the colostomy site. Extremities: No peripheral edema, cyanosis, clubbing. neurological: Exam nonfocal. INVESTIGATIONS: CBC: White cell count 11, hematocrit 33, platelets 228,000, PT 11, INR 1.0. SMA 7, sodium 140 potassium 4.2, chloride 102, BUN 49, creatinine 2.2, glucose 149. ProBNP was high. Urinalysis is clear. ASSESSMENT AND PLAN: 1. Small bowel obstruction due to parastomal hernia decompressed and discussed with Dr. Mark Rodriguez. Symptomatically improving with conservative management and clamp the nasogastric tube. We will start with oral fluids. 2. Left-sided shingles resolved. 3. Urinary tract infection on IV Zosyn. 4. Deep vein thrombosis prophylaxis with Lovenox. 5. Gastrointestinal prophylaxis with IV Protonix. 6. Nutritional with IV fluids, and ProcalAmine and living will DNR. PLAN: The plan of the care today is clear liquids, decrease the Dilaudid 0.5 due to over-sedation and level of documentation is 35 minutes. cc: Van Rebolledo MD
[2016-11-28] MEDS: 1/2 NS + KCL 20 MEQ 1,000 ML IV SCH (11:16)
[2016-11-28] MEDS: ZOFRAN IV PRN (12:56)
[2016-11-28] MEDS: GEODON IM PRN (13:59)
[2016-11-28] MEDS: STERILE WATER INJ. INJ PRN (14:00)
[2016-11-28] MEDS: LABETALOL IV PRN ×2 (18:06→23:41)
[2016-11-29] MEDS: DILAUDID IV PRN ×6 (00:01→22:12)
[2016-11-29] MEDS: ZOSYN 3.375 GM/NS 3.375 GM/50 ML IVPB IV SCH ×4 (00:09→20:59)
[2016-11-29] MEDS: ZOFRAN IV PRN (04:32)
[2016-11-29] MEDS: LABETALOL IV PRN ×4 (04:41→23:40)
[2016-11-29] MEDS: HUMALOG SUBQ SCH ×4 (06:05→20:18)
[2016-11-29 06:52] LABS: BASO% 0.1 % (0.0-0.8); EOS# 0.15 X1000 (0.0-0.7); EOS% 1.2 % (0.0-10.0); HEMATOCRIT 35.2 % (37.0-47.0); HEMOGLOBIN 10.9 g/dL (12.0-16.0); IMM GRAN# 0.09 X1000 (0.0-0.04); IMM GRAN% 0.7 % (0.0-0.5); LYMPH# 1.11 X1000 (1.2-3.4); LYMPH% 9.2 % (20.5-51.1); MANUAL DIFF NEEDED? YES; MCH 33.1 PG (27-31); MONO# 0.92 X1000 (0.11-0.59); MONO% 7.6 % (1.7-9.3); MPV 9.5 FL (7.4-10.4); NEUT% 81.2 % (42.2-75.2); PLT 238 X1000 (130-400); RBC 3.29 XMIL (4.2-5.4)
--- NOTE | 2016-11-29 06:54 | PROGRESS NOTE ---
DATE: 11/29/2016 SUBJECTIVE: The patient did have small episodes of emesis through the night, but she denies any kind of nausea right now. Nursing staff reports that she has been grabbing at her left jaw and ear saying it hurts. She denied any kind of tenderness along her ostomy site. Her ostomy appliance has some thicker fecal material in it. OBJECTIVE: Vital Signs: Patient is currently afebrile. Her vital signs have been stable. General: No acute distress. Resting comfortably in bed. HEENT: Normocephalic, atraumatic. Pupils equal, round, reactive to light. Patient does not have significant amount of changes on her left side that I can appreciate on limited exam. Neck supple. Trachea midline. Cardiovascular: Regular rate and rhythm. Lungs grossly clear. Abdomen soft, nondistended, nontender at this time. She does have a hernia at her ostomy site but appears to be soft. She does have bowel sounds auscultated. LABORATORY: Currently pending. ASSESSMENT AND PLAN: A 81-year-old female with small bowel obstruction secondary to parastomal hernia. 1. Small bowel obstruction. At this time, the patient did have some clinical improvement. Her nausea is improving with medication. She is having ostomy output. We will keep her on her current diet. Her nasogastric tube was pulled out yesterday, and we have kept it out. Her abdominal films did not show an obstructive-like pattern the other day, so we will continue to monitor. I suspect she is a poor surgical candidate with this parastomal hernia to have it fixed. I did discuss this with Dr. Rebolledo, her primary care physician, who agrees. 2. Left-sided facial pain. This could be related to her parotid gland, although she does not have significant changes that I can appreciate on limited exam. Will monitor for now. 3. Multiple medical comorbidities currently being managed by her primary care physician. cc: MD Van Yates MD MTDD
[2016-11-29 07:01] LABS: LYMPHS 7 % (21-51); MONO 6 % (1-9)
[2016-11-29 07:08] LABS: CALCIUM 8.4 mg/dL (8.8-10.2); POTASSIUM 4.4 mmol/L (3.5-5.1)
--- NOTE | 2016-11-29 08:16 | Diag Imaging Result Doc PS360 ---
EXAM: ABDOMEN FLAT/UPRIGHT INDICATION: pain TECHNIQUE: 2 views COMPARISON: 11/27/2016 FINDINGS: The NG tube appears to have been removed. There is minimal patchy small bowel bowel gas that is very similar to the previous study. This is nonspecific. There is no evidence of large volume free abdominal gas. IMPRESSION: Interval removal of the NG tube and essentially stable abdomen, otherwise. Electronically signed by Bulmaro Mayer 11/29/2016 8:14 AM
[2016-11-29] MEDS: SODIUM CHLORIDE 0.9% INJ SCH ×2 (08:23→21:06)
[2016-11-29] MEDS: SOLU-MEDROL IV SCH (08:23)
[2016-11-29] MEDS: SODIUM CHLORIDE 0.9% INJ PRN ×3 (08:23→16:38)
[2016-11-29] MEDS: PHENERGAN IV PRN ×4 (08:23→21:06)
[2016-11-29] MEDS: PROTONIX IV SCH (08:23)
[2016-11-29] MEDS: LOVENOX SUBQ SCH (08:24)
[2016-11-29] MEDS ORDERED: NS 250 ML ONE (09:56)
[2016-11-29] MEDS: 1/2 NS + KCL 20 MEQ 1,000 ML IV SCH (12:21)
[2016-11-29] MEDS: CLINIMIX E 4.25%-5% SOLUTION 1,000 ML IV SCH (13:28)
--- NOTE | 2016-11-29 17:55 | PROGRESS NOTE ---
DATE: 11/29/2016 SUBJECTIVE: For the last 24 hours the patient pulled the NG tube out. She still complains of nausea, retching, vomiting. Colostomy bag, stool present, some gas is coming. Patient complains of sick, nausea, vomiting. REVIEW OF SYSTEMS: HEENT: No headache. Cardiopulmonary: No chest pain, shortness of breath, PND, orthopnea. Generalized weakness and pain. Rash over the left side of the face is improving. OBJECTIVE: Vital Signs: Afebrile. Blood pressure is stable. Saturation 96%. General Appearance: She is heavyset, crying, in pain. HEENT: Atraumatic, normocephalic. Pupils equal, reactive to light. Neck: Supple. No lymphadenopathy. No goiter. Chest: Bilateral air entry. Heart: Sounds are regular. Breasts: Exam deferred. Abdomen: Belly is soft, nontender. No signs of peritonitis. Gas is coming from the colostomy site. Extremities: No edema cyanosis clubbing. Neurologic: Nonfocal. INVESTIGATIONS: CBC: White cell count 12, hematocrit 35, platelets 238,000. PT 11, INR 1.08. SMA 7: Sodium 140, potassium 4.4, BUN 33, creatinine 1.6, glucose 196. ProBNP 4,800. Flat and upright of the abdomen still has some nonspecific air-gas pattern and fluid levels present. ASSESSMENT AND PLAN: 1. Small bowel obstruction due to parastomal hernia. Off NG tube. Continue IV fluids and IV Clinimix. Clear liquids as tolerated. Phenergan for nausea. 2. Polymyalgia rheumatica. Will check the sedimentation rate. We will initiate IV Solu-Medrol. 3. Deep vein thrombosis prophylaxis. Continue on Lovenox until the warfarin starts. 4. Urinary tract infection. On Zosyn. Adjust dose based on the creatinine clearance. 5. Agitation. Geodon as needed. 6. Gastrointestinal prophylaxis with IV Protonix. 7. Plan of care today, out of the bed with physical therapy. Discussed with patient and family members. LEVEL OF DOCUMENTATION: 25 minutes. cc: Van Rebolledo MD
[2016-11-29] MEDS: GEODON IM PRN (20:59)
[2016-11-29] MEDS: STERILE WATER INJ. INJ PRN (21:00)
[2016-11-30] MEDS: DILAUDID IV PRN ×4 (01:49→21:28)
[2016-11-30] MEDS: PHENERGAN IV PRN ×3 (01:49→20:00)
[2016-11-30] MEDS: SODIUM CHLORIDE 0.9% INJ PRN (01:50)
[2016-11-30] MEDS: ZOSYN 3.375 GM/NS 3.375 GM/50 ML IVPB IV SCH ×3 (04:59→21:23)
[2016-11-30] MEDS: LABETALOL IV PRN ×4 (05:05→22:51)
[2016-11-30] MEDS: CLINIMIX E 4.25%-5% SOLUTION 1,000 ML IV SCH ×2 (05:37→22:51)
[2016-11-30 06:01] LABS: BASO% 0.3 % (0.0-0.8); EOS# 0.16 X1000 (0.0-0.7); EOS% 1.3 % (0.0-10.0); HEMATOCRIT 35.6 % (37.0-47.0); HEMOGLOBIN 11.3 g/dL (12.0-16.0); IMM GRAN# 0.12 X1000 (0.0-0.04); LYMPH# 1.71 X1000 (1.2-3.4); LYMPH% 14.4 % (20.5-51.1); MANUAL DIFF NEEDED? YES; MCH 33.6 PG (27-31); MCHC 31.7 g/dL (33-37); MONO# 1.21 X1000 (0.11-0.59); MONO% 10.2 % (1.7-9.3); MPV 10.1 FL (7.4-10.4); NEUT% 72.8 % (42.2-75.2); PLT 278 X1000 (130-400); RBC 3.36 XMIL (4.2-5.4)
[2016-11-30] MEDS: HUMALOG SUBQ SCH ×4 (06:05→21:22)
[2016-11-30 06:22] LABS: CALCIUM 8.9 mg/dL (8.8-10.2); POTASSIUM 4.8 mmol/L (3.5-5.1)
--- NOTE | 2016-11-30 06:36 | PROGRESS NOTE ---
DATE: 11/30/2016 SUBJECTIVE: Nursing staff reports some confusion through the night. The patient did have an episode of emesis. The patient says she is feeling slightly nauseated but not terrible. She is having ostomy output. OBJECTIVE: Vital Signs: Patient is currently afebrile. Her vital signs are stable. General Examination: No acute distress. HEENT: Normocephalic and atraumatic. Pupils equal, round, and react to light. Neck: Supple. Trachea midline. Cardiovascular: Regular rate and rhythm. Lungs: Grossly clear. Abdomen: Soft, nondistended, nontender at the ostomy site. The ostomy appears to be soft. She does have bowel sounds auscultated. Her ostomy appliance has thickened stool in it. Laboratory: White blood cell count is 11, hematocrit 35, platelet count 278,000. Abdominal film from yesterday reviewed. No obvious obstructive pattern is appreciated. ASSESSMENT/PLAN: A 81-year-old, female with a small-bowel obstruction secondary to parastomal hernia. 1. Small bowel obstruction. At this time, the patient is essentially stable. She is having ostomy output. Given how thick it is, I will ask the nurses to irrigate out her ostomy. I still do not think she is a good surgical candidate for peristomal hernia repair. I think clinically she is doing well. Hopefully, once she is over this nausea, we can advance her diet. 2. Multiple medical comorbidities currently being managed by her primary care physician, Dr. Rebolledo. cc: MD Van Yates MD
[2016-11-30 07:27] LABS: EOS 2 % (1-10); LYMPHS 26 % (21-51); MONO 4 % (1-9)
[2016-11-30] MEDS: SOLU-MEDROL IV SCH (08:14)
[2016-11-30] MEDS: LACTULOSE PO SCH ×2 (08:14→21:23)
[2016-11-30] MEDS: LOVENOX SUBQ SCH (08:14)
[2016-11-30] MEDS: PROTONIX IV SCH (08:14)
--- NOTE | 2016-11-30 09:16 | Diag Imaging Result Doc PS360 ---
EXAM: ABDOMEN FLAT/UPRIGHT INDICATION: pain TECHNIQUE: 2 views COMPARISON: 11/29/2016 FINDINGS: There is a loop of small bowel exhibiting mild to moderate gaseous distention. The distention is probably marginally increased compared to the previous study. However, overall, there appears to be less bowel gas. There is no evidence of large volume free abdominal gas. The abdomen is otherwise stable. IMPRESSION: Solitary loop of small bowel exhibiting mild to moderate gaseous distention as described. Electronically signed by Bulmaro Mayer 11/30/2016 9:14 AM
[2016-11-30] MEDS: 1/2 NS + KCL 20 MEQ 1,000 ML IV SCH ×2 (10:37→12:35)
[2016-11-30] MEDS: GEODON IM PRN ×2 (12:35→20:22)
[2016-11-30] MEDS: APRESOLINE IV PRN (17:41)
--- NOTE | 2016-11-30 19:42 | PROGRESS NOTE ---
DATE: 11/30/2016 LEVEL 3 DOCUMENTATION: Almost 35 minutes. Unstable patient. SUBJECTIVE: The patient continues to exhibit intermittent confusion, less gas and stool noted in the colon bag. She is irritable. Followup x-ray showing more gaseous distention. Blood pressure is running high. REVIEW OF SYSTEMS: The patient is agitated. Not able to give any history. The patient was seen by Dr. No this morning, continue conservative management. Around 11 o'clock, she had projectile vomiting, continuous nausea and vomiting. NG tube was inserted drained 700 mL of bile and she pulled the NG tube twice. EXAMINATION: Vital signs: Stable. Blood pressure is high, low grade fever. HEENT: Within normal limits. Rashes noted on the left side of the face. Neck: Supple. Chest: Clear to auscultation. Heart: Sounds are regular. Abdomen: Belly is soft. No signs of peritonitis. Obese. Extremities: No edema. INVESTIGATIONS: CBC: White cell count 11, hematocrit 35, platelets 278,000. PT 11, INR 1. SMA7: Sodium 143, potassium 4.8, BUN 31, creatinine 1.5, glucose 160. Sedimentation rate is 112. ASSESSMENT AND PLAN: 1. Small-bowel obstruction due to parastomal hernia. CT scan of the abdomen and pelvis done on 11/26/2016, follow up conservative management with nasogastric tube. The family talked to me on the phone they want to go ahead and do surgery even though the risks are high. We will discuss with Dr. Mark Rodriguez. 2. High sedimentation rate, due to polymyalgia rheumatica. Continue on prednisone. 3. Hypertension, continue hydralazine 10 mg q.6 hours as needed. 4. Impending dehydration, on Clinimix and normal saline. Deep venous thrombosis prophylaxis with Lovenox. Delirium with agitation and Geodon as needed. 5. Poor intravenous access. Peripherally inserted central line was placed on the right side. 6. Living will, Do Not Resuscitate. cc: Van Rebolledo MD
[2016-11-30] MEDS: STERILE WATER INJ. INJ PRN ×2 (20:01→20:23)
[2016-12-01] MEDS: APRESOLINE IV PRN ×2 (00:01→05:41)
[2016-12-01] MEDS: DILAUDID IV PRN ×4 (01:58→23:48)
[2016-12-01] MEDS: GEODON IM PRN ×2 (02:03→12:37)
[2016-12-01] MEDS: STERILE WATER INJ. INJ PRN (02:04)
[2016-12-01] MEDS: LABETALOL IV PRN ×2 (03:07→23:29)
[2016-12-01] MEDS: ZOFRAN IV PRN (03:07)
[2016-12-01] MEDS: CARDIZEM 100 MG/NS 100 MG/100 ML IVPB IV SCH ×2 (04:47→10:00)
--- NOTE | 2016-12-01 05:25 | EKG Report ---
Test Performed on : 12/01/2016 04:21:25 AM Test Reason : A-FIB W/RVR Blood Pressure : / mmHG Vent. Rate : 149 BPM Atrial Rate : 178 BPM P-R Int : 000 ms QRS Dur : 074 ms QT Int : 310 ms P-R-T Axes : 000 041 215 degrees QTc Int : 488 ms Atrial fibrillation. with rapid ventricular response. Septal infarct , age undetermined Marked ST abnormality, possible inferior subendocardial injury Abnormal ECG When compared with ECG of 01-DEC-2016 04:20, (Unconfirmed) No significant change was found Confirmed by Mg KOHLI, Paulino Arce ([id number]) on 12/02/2016 9:13:26 AM
[2016-12-01] MEDS: ZOSYN 3.375 GM/NS 3.375 GM/50 ML IVPB IV SCH ×3 (05:41→21:11)
[2016-12-01 05:52] LABS: BASO% 0.2 % (0.0-0.8); EOS# 0.11 X1000 (0.0-0.7); EOS% 0.6 % (0.0-10.0); HEMATOCRIT 40.1 % (37.0-47.0); HEMOGLOBIN 12.9 g/dL (12.0-16.0); IMM GRAN# 0.16 X1000 (0.0-0.04); IMM GRAN% 0.9 % (0.0-0.5); LYMPH# 1.96 X1000 (1.2-3.4); LYMPH% 11.6 % (20.5-51.1); MCH 33.3 PG (27-31); MCHC 32.2 g/dL (33-37); MCV 103.6 FL (81-99); MONO# 2.07 X1000 (0.11-0.59); MONO% 12.2 % (1.7-9.3); MPV 10.2 FL (7.4-10.4); NEUT% 74.5 % (42.2-75.2); PLT 355 X1000 (130-400); RBC 3.87 XMIL (4.2-5.4)
[2016-12-01] MEDS: HUMALOG SUBQ SCH ×4 (06:39→20:40)
--- NOTE | 2016-12-01 06:53 | PROGRESS NOTE ---
DATE: 12/01/2016 SUBJECTIVE: Patient did have atrial fibrillation with RVR last night. Overall, clinical status has deteriorated somewhat in the last 12-24 hours. She has had an NG tube replaced and had at least 1 L removed. She has had only 150 out her ostomy and it is still thickened. She is more confused at this moment. OBJECTIVE: Vital Signs: Patient is currently afebrile. Heart rates in the low 1 teens. Respiratory rate is nonlabored at 17. Blood pressure elevated at 170s systolic. General: No acute distress but a little bit more confused. HEENT: Normocephalic, atraumatic. Pupils equal, round, react to light. Mucous membranes moist. Oropharynx benign. Neck: Supple. Trachea midline. Cardiovascular: Atrial fibrillation with a rapid ventricular response. Lungs: Grossly clear. Abdomen: Soft, nondistended, nontender even at the ostomy site, but there is a hernia. LABORATORY: White blood cell count is 16.9, which is up from 11, hematocrit 40, platelet count 355,000. ASSESSMENT/PLAN: A 81-year-old, female with small-bowel obstruction secondary to parastomal hernia. 1. Small bowel obstruction. At this time, patient has had a decline. She has with atrial fibrillation with rapid ventricular response. Her white blood cell count is elevated, although it does look like she is somewhat more concentrated and dehydrated. Had a lengthy discussion with Dr. Rebolledo over the phone last night and this morning about her overall clinical condition. Had a lengthy discussion with the patient's daughter, Whitney, about expectations and outcome given her decline. We will plan on surgical intervention. Discussed with the family of at least 2/3 to 70% risk of complication from the surgery. They are willing to accept this and did not want to see their mother suffer, so they want to proceed with surgery. Discussed with them surgical plan and intervention of repair of this parastomal hernia. They voiced understanding. Discussed with them the likelihood that she will remain on the ventilator afterwards. All these questions were answered. I have her posted tentatively for this afternoon. 2. Multiple medical comorbidities. Currently being managed by Dr. Rebolledo. Again, I had several discussions with Dr. Rebolledo about her overall clinical condition. cc: MD Van Yates MD
[2016-12-01] MEDS ORDERED: LANOXIN IV ONE ×2 (07:54→08:15)
[2016-12-01] MEDS: SOLU-MEDROL IV SCH (08:21)
[2016-12-01] MEDS: PROTONIX IV SCH (08:21)
[2016-12-01] MEDS: LOVENOX SUBQ SCH (08:22)
--- NOTE | 2016-12-01 09:17 | PROGRESS NOTE ---
DATE: 12/01/2016 SUBJECTIVE: Patient is critical since yesterday. A lot of discussion with the family members on the telephone for more than 20 minutes as well as Dr. Mark Rodriguez. I was production control specialist last night and had several calls. home care rn, she went to rapid atrial fibrillation. She is tachycardic and the heart rate is about 150. She was started on IV Cardizem drip. She was maxed out on 20 mg per hour. Continues to be atrial fibrillation with rapid ventricular response. An NG tube was reinserted, on intermittent wall suction. REVIEW OF SYSTEMS: No chest pain, shortness of breath. No abdominal pain. PHYSICAL EXAMINATION: Vital Signs: Afebrile. Heart rate is 128, blood pressure is 99/77, 204 pounds. HEENT: Examination within normal limits. Neck: Supple. Chest: Bilateral air entry. Heart: Heart sounds are erratic. Abdomen: Belly is soft, nontender. Colostomy site, no gas is coming out. Extremities: No peripheral edema, cyanosis, clubbing. INVESTIGATIONS: CBC: White cell count 16, hematocrit 40, platelets 355,000. Sedimentation rate is 112. ASSESSMENT AND PLAN: 1. New rapid atrial fibrillation. Unable to control with Cardizem, maxed out. Plan is Lanoxin 1 mg as discussed. If fails to improve, we will start intravenous Cordarone. 2. Small bowel obstruction due to parastomal hernia. Family decided to go for surgery since she failed conservative management. Risks and benefits were discussed. I also discussed with Dr. Mark Rodriguez and he is planning to do surgery this afternoon. 3. Elevated sedimentation rate due to polymyalgia rheumatica. Continue on intravenous steroids. 4. Impending dehydration, on intravenous fluids and intravenous Clinimix. Continue on intravenous Protonix. LEVEL OF DOCUMENTATION: 35 minutes for the coordination of the care with the family members. cc: Van Rebolledo MD
[2016-12-01] MEDS: 1/2 NS + KCL 20 MEQ 1,000 ML IV SCH (11:12)
[2016-12-01] MEDS: LANOXIN IV SCH ×2 (11:12→16:57)
[2016-12-01] MEDS: LACTULOSE PO SCH ×2 (11:12→20:41)
[2016-12-01] MEDS ORDERED: MARCAINE 0.25% PF/EPI 1:200,000 ONE (13:06)
[2016-12-01] MEDS ORDERED: XYLOCAINE 1% ONE (13:07)
[2016-12-01] MEDS ORDERED: FENTANYL ONE (15:19)
[2016-12-01] MEDS ORDERED: DIPRIVAN 1% ONE (15:19)
[2016-12-01] MEDS ORDERED: AMIDATE ONE (15:20)
[2016-12-01] MEDS ORDERED: DIPRIVAN 1% 1,000 MG/100 ML BOTTLE ONE (15:55)
[2016-12-01] MEDS ORDERED: DILAUDID ONE (16:24)
[2016-12-01] MEDS ORDERED: NEOSTIGMINE ONE (16:37)
[2016-12-01] MEDS ORDERED: ROBINUL ONE (16:37)
[2016-12-01] MEDS ORDERED: ZEMURON ONE (16:37)
[2016-12-01] MEDS ORDERED: LR 2,000 ML ONE (16:37)
[2016-12-01] MEDS ORDERED: QUELICIN (DOSE) ONE (16:37)
--- NOTE | 2016-12-01 16:39 | OPERATIVE NOTE ---
PROCEDURE DATE: 12/01/2016 PREOPERATIVE DIAGNOSIS: Incarcerated parastomal hernia. POSTOPERATIVE DIAGNOSIS: Incarcerated parastomal hernia. PROCEDURES: 1. Exploratory laparotomy. 2. Primary repair of parastomal hernia. 3. Partial colectomy. 4. Creation of end colostomy. SURGEON: Mark Rodriguez MD. DRIVING TEACHER: Dr. Kemp. Dr. Kemp assisted with entirety of the case with retraction, dissection, identification of structures. ANESTHESIA: General endotracheal. INTRAOPERATIVE FINDINGS: As above. COMPLICATIONS: None at time of dictation. ESTIMATED BLOOD LOSS: 100 mL. SPECIMENS REMOVED: Colon (Previous ostomy) DRAINS: None. BRIEF HISTORY: The patient is a 81-year-old, female with multiple medical comorbidities who initially presented with incarcerated parastomal hernia causing a bowel obstruction. We initially tried a nonoperative management, NG tube. The patient initially made some improvement but then had a decline. It is felt the patient would benefit from repair. The risks, benefits, and alternatives were discussed. I did discuss with the family the potential up to 70% of complication postoperatively and they voiced understanding and wished to proceed with the procedure. DESCRIPTION OF PROCEDURE: After informed consent was obtained, patient brought to the operative theatre, transferred to operating table, placed in supine position. General endotracheal anesthesia was then performed without complication. A formal time-out was then performed confirming patient, date, procedure. All were in agreement. At that time, attention given to the abdomen. We elected to make an elliptical incision around the patient's previous ostomy where the parastomal hernia was located. We did this and were able to dissect down to the hernia sac, entered into the hernia sac, dissected all the way down to the fascia. The fascia itself was identified circumferentially. Once we had done this and entered into the hernia sac we were able to reduce the contents which was all small bowel and the end-colostomy, all appeared to be viable. We reduced it into the abdomen. The patient did have dense adhesions throughout her abdomen. We were not able to explore the abdomen in its entirety, but on the CT scan this had been the point of obstruction. We again made sure the bowel itself was viable. We elected to see how mobile the colon was. It was very mobile from her previous dissection, mobile enough to move the ostomy superiorly. We selected a new spot superior to her umbilicus to the lateral border of the rectus, made an incision through the skin down to the subcutaneous tissue to the fascia. Incised the fascia in a cruciate incision and widened the fascial defect up to the size of 2 fingerbreadths, and were able to bring up the ostomy without twisting it up into this new site. We then turned our attention to the old ostomy site. We irrigated it out copiously until the suction fluid was clear. We elected to close it primarily with 0 Prolene in [id number] stitches, it took approximately 4 [id number] stitches to close the defect. There was decent anterior fascia which we used to close. We irrigated this area copiously. We then closed it in layers loosely using 3-0 chromic and bharath for the skin. We also placed Betadine-soaked Telfa for aria into the incision. We then turned our attention to maturing the ostomy. The patient's previous ostomy was small. We elected to resect this distal end. We resected approximately 4 cm of colon. We did this with a scissors. The mucosa was viable and bleeding. We maintained hemostasis with electrocautery. We then matured the ostomy in a standard fashion by brooking the ostomy with 3-0 Vicryl with good results. We placed a new ostomy appliance. The patient tolerated the procedure well and was transferred back to the recovery room and to the ICU. She tolerated the procedure relatively well. Postoperatively we will monitor how well she does. cc: MD Van Yates MD MTDD
[2016-12-01] MEDS ORDERED: DIPRIVAN 1% IV PRN (16:58)
[2016-12-01] MEDS: CLINIMIX E 4.25%-5% SOLUTION 1,000 ML IV SCH (17:01)
[2016-12-01 18:34] LABS: ALLEN TEST YES; BE -0.4 mmoll (-3.0-3.0); BLOOD TYPE ARTERIAL; DRAW SITE L BRACHIAL; O2(CT) 16.8 mL/dL (15.0-23.0); PCO2(98.6) 42 mmHg (35-45); PO2(98.6) 106 mmHg (60-100); SAMPLE BLOOD; SAO2 104.4 % (95.0-100.0); SRATE 12 BPM; THB 12.2 g/dL (11.5-17.4); TVOL 500 mL; pH(98.6) 7.38 (7.35-7.45)
[2016-12-01 18:42] LABS: MODALITY VENTILATOR
[2016-12-01] MEDS: DIPRIVAN 1% 1,000 MG/100 ML BOTTLE IV SCH ×2 (18:56→22:07)
[2016-12-02] MEDS: DIPRIVAN 1% 1,000 MG/100 ML BOTTLE IV SCH ×3 (01:21→07:34)
[2016-12-02] MEDS: DILAUDID IV PRN ×4 (04:19→22:57)
[2016-12-02 04:42] LABS: ALLEN TEST YES; BE -1.7 mmoll (-3.0-3.0); BLOOD TYPE ARTERIAL; DRAW SITE R RADIAL; PCO2(98.6) 42 mmHg (35-45); PO2(98.6) 98 mmHg (60-100); SAMPLE BLOOD; SAO2 98.8 % (95.0-100.0); SRATE 12 BPM; THB 11.7 g/dL (11.5-17.4); TVOL 500 mL; pH(98.6) 7.36 (7.35-7.45)
[2016-12-02 04:43] LABS: MODALITY VENTILATOR
[2016-12-02 05:12] LABS: CALCIUM 8.4 mg/dL (8.8-10.2); POTASSIUM 4.6 mmol/L (3.5-5.1)
[2016-12-02] MEDS: ZOSYN 3.375 GM/NS 3.375 GM/50 ML IVPB IV SCH ×3 (05:15→22:09)
[2016-12-02 05:53] LABS: BASO% 0.2 % (0.0-0.8); EOS# 0.02 X1000 (0.0-0.7); EOS% 0.1 % (0.0-10.0); HEMATOCRIT 34.1 % (37.0-47.0); HEMOGLOBIN 10.8 g/dL (12.0-16.0); IMM GRAN# 0.14 X1000 (0.0-0.04); IMM GRAN% 0.8 % (0.0-0.5); LYMPH# 1.62 X1000 (1.2-3.4); LYMPH% 9.3 % (20.5-51.1); MANUAL DIFF NEEDED? NO; MCH 33.3 PG (27-31); MCHC 31.7 g/dL (33-37); MCV 105.2 FL (81-99); MONO# 1.53 X1000 (0.11-0.59); MONO% 8.8 % (1.7-9.3); MPV 10.2 FL (7.4-10.4); NEUT% 80.8 % (42.2-75.2); PLT 305 X1000 (130-400); RBC 3.24 XMIL (4.2-5.4)
[2016-12-02] MEDS: HUMALOG SUBQ SCH ×4 (06:38→20:12)
--- NOTE | 2016-12-02 06:45 | PROGRESS NOTE ---
DATE: 12/02/2016 SUBJECTIVE: The patient doing relatively well after her surgery yesterday. She did have to get some p.r.n. labetalol during the course of the night of which she did not have a dramatic response to. She has been stable on the ventilator. OBJECTIVE: Vital Signs: Patient is currently afebrile. Most recent recorded temperature 96.9, pulse 70, blood pressures ranged anywhere from 63 systolic to 189 systolic. It appears that she had the one episode of 63 that was isolated. Blood pressure was rechecked and was 119/60. General: Sedated on the ventilator. Cardiovascular: As noted above. It seems like she is in more normal sinus rhythm at this time. Lungs: Referred airway noises. Abdomen: Soft, nondistended. Appropriately tender. Previous ostomy site with some saturation. New ostomy site, the new ostomy is edematous. It is mostly weeping but appears viable. LABORATORY: White blood cell count of 17, hematocrit 34.1, platelet count 305,000. ABG reviewed. ASSESSMENT/PLAN: A 81-year-old female with small-bowel obstruction secondary to parastomal hernia. Status post repair of peristomal hernia with creation of new colostomy. 1. Patient is on the ventilator. Pulmonary has been consulted. Hopefully, we can wean her off the ventilator today. Overall, we will need to wait for return of bowel function and monitor wounds closely. Family is aware the potential for complications but we will continue supportive care and monitor. While I am gone over the weekend, my partner, Dr. Byrd will take care of her. 2. Multiple medical comorbidities. At this time, being managed by her primary care physician, Dr. Rebolledo. cc: MD Van Yates MD
--- NOTE | 2016-12-02 07:07 | Diag Imaging Result Doc PS360 ---
EXAM: CHEST-1 VIEW HISTORY: SOB TECHNIQUE: AP portable at 0500 COMMENT: There is an endotracheal tube with its tip at thoracic inlet. There is an NG tube which passes below the diaphragm. There is a PICC line on the right with its tip in superior vena cava. There is alveolar opacity in the left apex which was not present on 11/16/2016. The inspiration is generally less optimal than on the previous study. IMPRESSION: Left upper lobe pneumonia. Electronically signed by Shahab Krishnan 12/02/2016 7:05 AM
[2016-12-02] MEDS: PROTONIX IV SCH (07:28)
[2016-12-02] MEDS: SODIUM CHLORIDE 0.9% INJ SCH (07:28)
[2016-12-02] MEDS: CLINIMIX E 4.25%-5% SOLUTION 1,000 ML IV SCH (07:34)
[2016-12-02] MEDS: LOVENOX SUBQ SCH (08:57)
[2016-12-02] MEDS: SOLU-MEDROL IV SCH (08:57)
[2016-12-02 10:22] LABS: ALLEN TEST YES; BE -2.2 mmoll (-3.0-3.0); BLOOD TYPE ARTERIAL; DRAW SITE R RADIAL; METHB 1.3 % (0.0-1.5); O2(CT) 16.2 mL/dL (15.0-23.0); PCO2(98.6) 30 mmHg (35-45); PO2(98.6) 87 mmHg (60-100); SAMPLE BLOOD; THB 11.9 g/dL (11.5-17.4); pH(98.6) 7.45 (7.35-7.45)
[2016-12-02 10:23] LABS: MODALITY VENTILATOR
[2016-12-02] MEDS: 1/2 NS + KCL 20 MEQ 1,000 ML IV SCH (11:34)
--- NOTE | 2016-12-02 11:51 | CONSULTATION ---
DATE OF CONSULTATION: 12/02/2016 REFERRING PHYSICIANS: Mark Rodriguez MD and Mariangel Rebolledo MD. CHIEF COMPLAINT: Evaluation for respiratory failure, pneumonia in a patient who is postoperative. HISTORY OF PRESENTING ILLNESS: This is a 81-year-old female with past medical history of diabetes and hypertension, on home anticoagulation who had colostomy hernia repair and recreation of colostomy stoma. Postoperatively required ventilator. Chest x-ray showed pneumonia. PAST MEDICAL HISTORY: Hypertension, diabetes, congestive heart failure, chronic atrial fibrillation, colectomy, colostomy, diverticulosis. PAST SURGICAL HISTORY: As above. REVIEW OF SYSTEMS: As detailed in history of presenting illness, otherwise noncontributory. ALLERGIES: Reviewed. Allergies include possible to meperidine or Demerol. MEDICATIONS: Reviewed. Medications in the hospital include Clinimix, Lovenox for DVT prophylaxis, Cardizem, hydralazine, Dilaudid, Humalog, labetalol, Solu-Medrol, Zofran, Protonix, Zosyn, IV fluids, propofol. FAMILY HISTORY: Hypertension. PHYSICAL EXAMINATION: General: Intubated, awake, lethargic. Family or daughter at the bedside. Head and Neck: Trachea midline. Vital signs: Noted. Chest Exam: Good entry bilaterally. A few crackles at left. Cardiac: S1, S2. Abdomen: Nontender and postoperative. Extremities: Lower limb examination, +1 pedal edema. Neurologic: Awake. Lethargic. LABS AND INVESTIGATIONS: ABG , CBC, CMP, chest x-ray reviewed. WBC 17.3, hemoglobin 10.8, platelets 305,000. Creatinine is 1.6. ABG with weaning trial was pH of 7.45, pCO2 30, pO2 87 on CPAP 5 on 5 with 40% oxygen. ASSESSMENT: A 81-year-old female, past history as above with: 1. Postoperative respiratory failure. 2. Pneumonia. 3. Colostomy hernia repair and reopening of a new colostomy area. PLAN: 1. Antibiotics. 2. Assist-control ventilation and weaning trials. 3. Supportive care. DVT and GI prophylaxis. 4. Follow up labs and x-rays. 5. Discussed with patient and nursing staff. cc: MD Van Flaherty MD
--- NOTE | 2016-12-02 17:33 | PROGRESS NOTE ---
DATE: 12/02/2016 SUBJECTIVE: Interval history was reviewed. ICU care spent more than 35 minutes. Discussed with the family, other consultants. The patient was taken to the operating room yesterday afternoon. Repair at the colostomy site and also fixed the parastomal hernia by Dr. Otto and Dr. No together. Patient was transferred from the recovery room to the ICU in a ventilator support. Patient was seen by Dr. Viramontes. She has been on Diprivan, sedated. On IV Clinimix, NG tube. REVIEW OF SYSTEMS: Unable to obtain. Patient is sedated. This morning is try to wean off the ventilator protocol. She has shaking of the legs. Family was there at the bedside. OBJECTIVE: Vital signs: She is afebrile. She is back in sinus. Vitals are stable. HEENT: The ET tube seen. NG present with low wall suction. PICC line on the right side. Chest: Clear heart sounds that are regular. Abdomen: Belly is soft. Colostomy site looks fine. Extremities: No peripheral edema, cyanosis, clubbing. Neuro exam: Unable to assess. INVESTIGATIONS: CBC: White cell count 17, hematocrit 34, platelets 305,000. ABG on ventilator support; pH is 7.38, pCO2 42, PO2 106, bicarb 24. On SIMV 12 40% FiO2, PEEP of 5, tidal volume 500. SMA 7: Sodium 137, potassium 4.6, chloride 101, BUN 36, creatinine 1.6, glucose 151. ASSESSMENT AND PLAN: 1. Postoperative day 1 status post parastomal hernia repair and revision of colostomy. Doing very well. 2. 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 3. Ventilator support on SIMV mode .ABGs are stable. Chest x-ray was stable. 4. Atrial fibrillation, currently in sinus. Did not require IV Cordarone, currently on Cardizem drip. 5. Gastrointestinal, on NG tube with low wall suction. 6. Nutrition with IV fluids and Clinimix. 7. Polymyalgia rheumatica, on IV methylprednisone 40 mg daily. 8. Deep venous thrombosis prophylaxis with Lovenox. 9. Gastrointestinal prophylaxis with IV Protonix. 10. Perioperative antibiotics on Zosyn, and living will, DNR, and discussed with the family. We will wean off from the ventilator as per Dr. Viramontes. LEVEL OF DOCUMENTATION: Thirty-five minutes. cc: Van Rebolledo MD
[2016-12-03] MEDS: DILAUDID IV PRN ×3 (02:59→21:17)
[2016-12-03 05:02] LABS: ALLEN TEST YES; BE -3.3 mmoll (-3.0-3.0); BLOOD TYPE ARTERIAL; DRAW SITE R RADIAL; METHB 1.4 % (0.0-1.5); O2(CT) 15.2 mL/dL (15.0-23.0); PCO2(98.6) 40 mmHg (35-45); PO2(98.6) 113 mmHg (60-100); SAMPLE BLOOD; SAO2 99.1 % (95.0-100.0); THB 11.1 g/dL (11.5-17.4); pH(98.6) 7.35 (7.35-7.45)
[2016-12-03 05:03] LABS: MODALITY COOL AEROSOL
[2016-12-03] MEDS: ZOSYN 3.375 GM/NS 3.375 GM/50 ML IVPB IV SCH ×3 (05:10→21:17)
[2016-12-03] MEDS: CLINIMIX E 4.25%-5% SOLUTION 1,000 ML IV SCH ×4 (05:10→16:59)
[2016-12-03 06:00] LABS: BASO% 0.3 % (0.0-0.8); EOS# 0.02 X1000 (0.0-0.7); EOS% 0.1 % (0.0-10.0); HEMATOCRIT 33.1 % (37.0-47.0); HEMOGLOBIN 10.5 g/dL (12.0-16.0); IMM GRAN# 0.28 X1000 (0.0-0.04); IMM GRAN% 1.8 % (0.0-0.5); LYMPH# 1.89 X1000 (1.2-3.4); LYMPH% 12.3 % (20.5-51.1); MANUAL DIFF NEEDED? YES; MCH 33.2 PG (27-31); MCHC 31.7 g/dL (33-37); MCV 104.7 FL (81-99); MONO# 1.36 X1000 (0.11-0.59); MONO% 8.9 % (1.7-9.3); MPV 10.2 FL (7.4-10.4); NEUT% 76.6 % (42.2-75.2); PLT 313 X1000 (130-400); RBC 3.16 XMIL (4.2-5.4)
[2016-12-03 06:19] LABS: BANDS 4 % (0-1); LYMPHS 16 % (21-51); MONO 6 % (1-9)
[2016-12-03 06:20] LABS: CALCIUM 8.6 mg/dL (8.8-10.2); POTASSIUM 4.7 mmol/L (3.5-5.1)
[2016-12-03] MEDS: HUMALOG SUBQ SCH ×4 (06:36→20:01)
--- NOTE | 2016-12-03 07:57 | Diag Imaging Result Doc PS360 ---
EXAM: CHEST-1 VIEW INDICATION: SOB TECHNIQUE: One view COMPARISON: 12/02/2016 FINDINGS: There has been interval extubation. An NG tube projects below the diaphragm and out of the [id number]. Inspiration is suboptimal. The left apical opacity has improved during the interval and has essentially resolved, possibly due to positioning of the patient. There are no new consolidations. Cardiac silhouette is stable. IMPRESSION: Interval improvement of left apical opacity to essential resolution. Electronically signed by Bulmaro Mayer 12/03/2016 7:54 AM
[2016-12-03] MEDS: LOVENOX SUBQ SCH (08:18)
[2016-12-03] MEDS: SODIUM CHLORIDE 0.9% INJ SCH (08:18)
[2016-12-03] MEDS: SOLU-MEDROL IV SCH (08:18)
[2016-12-03] MEDS: PROTONIX IV SCH (08:18)
--- NOTE | 2016-12-03 10:08 | PROGRESS NOTE ---
DATE: 12/03/2016 SUBJECTIVE: Over the last 24 hours, the patient was weaned off from the ventilator support after excellent CPAP trial. She was awake and responding very well. She still has an NG tube, PICC line on the right side, Gaines catheter. REVIEW OF SYSTEMS: No complaints. OBJECTIVE: Vital Signs: Afebrile, pulse is 99, blood pressure is 160/90. 235 pounds. Nasal cannula 4 L 100%. Chest is clear. Heart sounds are regular. Belly is soft. Colostomy site looks fine with some bloody fluid and no peripheral edema. No obvious neurological deficits. INVESTIGATIONS: Chest x-ray was stable. CBC: White cell count 15, hematocrit 33, platelets 313,000. ABG: pH is 7.35, pCO2 of 40, PO2 of 113 on 35% Venti mask. SMA 7: Sodium 138, potassium 4.7, chloride 103. BUN 40, creatinine 1.6, calcium 8.6. ASSESSMENT AND PLAN: 1. Cardiac: In sinus, off Cardizem drip. 2. Small bowel obstruction. Postop date 2. Continue on NG tube with low wall suction and IV fluids. 3. Deep venous thrombosis prophylaxis with Lovenox. 4. Gastrointestinal prophylaxis with IV Protonix. 5. Perioperative antibiotics with IV Zosyn. Continue present medical therapy. Discussed with the family. 6. Polymyalgia rheumatica, on IV steroids. LEVEL OF DOCUMENTATION: 25 minutes. cc: Van Rebolledo MD
[2016-12-03] MEDS: APRESOLINE IV PRN (10:09)
[2016-12-03] MEDS: 1/2 NS + KCL 20 MEQ 1,000 ML IV SCH (10:54)
--- NOTE | 2016-12-03 11:16 | PROGRESS NOTE ---
DATE: 12/03/2016 SUBJECTIVE: Ms. Leonardo is now postop day 2 from a pericolostomy hernia repair with takedown of the colostomy and moving it to the left upper quadrant of the abdomen per Dr. Rodriguez. She remains in the ICU with an NG tube in place. She is awake and cooperative, appears to be comfortable. Hemodynamically she is satisfactory. Her ostomy appears to be viable; it has no output. The lower left quadrant incision is dressed. Her abdomen is mainly soft. PLAN: We will continue supportive care and NG tube at this time until bowel activity is present. cc: MD Van Johnson MD
[2016-12-03] MEDS: GEODON IM PRN (13:07)
[2016-12-03] MEDS: STERILE WATER INJ. INJ PRN (13:09)
[2016-12-03] MEDS: PHENERGAN IV PRN (21:17)
[2016-12-04] MEDS: CLINIMIX E 4.25%-5% SOLUTION 1,000 ML IV SCH ×2 (00:38→17:11)
[2016-12-04] MEDS: DILAUDID IV PRN ×5 (02:17→22:37)
[2016-12-04] MEDS: PHENERGAN IV PRN ×2 (02:18→22:35)
[2016-12-04 05:05] LABS: ALLEN TEST YES; BE -2.5 mmoll (-3.0-3.0); BLOOD TYPE ARTERIAL; DRAW SITE R RADIAL; METHB 0.7 % (0.0-1.5); MODALITY ROOM AIR; O2(CT) 14.7 mL/dL (15.0-23.0); PCO2(98.6) 34 mmHg (35-45); PO2(98.6) 72 mmHg (60-100); SAMPLE BLOOD; SAO2 97.2 % (95.0-100.0); pH(98.6) 7.41 (7.35-7.45)
[2016-12-04] MEDS: ZOSYN 3.375 GM/NS 3.375 GM/50 ML IVPB IV SCH ×3 (05:23→22:41)
[2016-12-04] MEDS: HUMALOG SUBQ SCH ×4 (06:14→22:33)
[2016-12-04 06:22] LABS: BASO% 0.4 % (0.0-0.8); EOS# 0.07 X1000 (0.0-0.7); EOS% 0.5 % (0.0-10.0); HEMATOCRIT 34.3 % (37.0-47.0); HEMOGLOBIN 11.2 g/dL (12.0-16.0); IMM GRAN# 0.41 X1000 (0.0-0.04); IMM GRAN% 2.8 % (0.0-0.5); LYMPH# 2.22 X1000 (1.2-3.4); MANUAL DIFF NEEDED? YES; MCH 33.8 PG (27-31); MCHC 32.7 g/dL (33-37); MCV 103.6 FL (81-99); MONO# 1.24 X1000 (0.11-0.59); MONO% 8.4 % (1.7-9.3); MPV 10.5 FL (7.4-10.4); NEUT% 72.9 % (42.2-75.2); PLT 353 X1000 (130-400); RBC 3.31 XMIL (4.2-5.4)
[2016-12-04 07:11] LABS: CALCIUM 8.7 mg/dL (8.8-10.2); POTASSIUM 4.4 mmol/L (3.5-5.1)
[2016-12-04 07:29] LABS: BANDS 6 % (0-1); LYMPHS 16 % (21-51); MONO 2 % (1-9)
--- NOTE | 2016-12-04 08:02 | Diag Imaging Result Doc PS360 ---
EXAM: CHEST-1 VIEW INDICATION: SOB TECHNIQUE: One view COMPARISON: 12/03/2016 FINDINGS: Right PICC line is stable. An NG tube projects below the diaphragm and out of the [id number]. Inspiration is suboptimal. No definite airspace consolidation is identified by plain radiograph. Cardiac silhouette is stable. IMPRESSION: Stable chest. Electronically signed by Bulmaro Mayer 12/04/2016 7:59 AM
[2016-12-04] MEDS: SOLU-MEDROL IV SCH (08:30)
[2016-12-04] MEDS: PROTONIX IV SCH (08:30)
[2016-12-04] MEDS: LOVENOX SUBQ SCH (08:31)
[2016-12-04] MEDS: APRESOLINE IV PRN (11:20)
--- NOTE | 2016-12-04 11:43 | PROGRESS NOTE ---
DATE: 12/04/2016 Ms. Leonardo is postop day 3 from a paracolostomy hernia repair with repositioning of the end colostomy to the left upper quadrant of her abdomen. She remains in the ICU. She still has an NG tube in place. She has had little output from her ostomy. The lower wound is dressed. Her abdomen is mostly soft. She is awake. Seems to be comfortable. Her heart rate is 98, blood pressure 132/86, O2 saturation 96%. She is afebrile. On IV Zosyn. She is also on steroids. She is receiving peripheral nutrition. Her white blood cell count has decreased from 15 to 14, hematocrit is 34%. Her BUN and creatinine are 36 and 1.3 and that has improved. The rest of her electrolytes are within normal limits. Her base deficit is 2.5. PaO2 is 72. Chest x-ray is stable. She has a PICC line in place. No evidence of pneumonia. cc: MD Van Johnson MD
[2016-12-04] MEDS: 1/2 NS + KCL 20 MEQ 1,000 ML IV SCH (12:10)
--- NOTE | 2016-12-04 12:29 | PROGRESS NOTE ---
DATE: 12/04/[address] Rebolledo SUBJECTIVE: Patient remains in ICU following pericolostomy hernia repair. She is resting comfortably. OBJECTIVE: Vital signs: Afebrile, pulse low 100s, blood pressure 132/86, respirations 16, O2 saturation on 3 L 96%. CV: Tachycardia, regular rhythm. Lungs: Fairly clear. Extremities: No calf tenderness, cords. Does have mild lower extremity edema. Neurologic: She appears sedated. LAB DATA: Shows white count 14.8, hemoglobin 11.2, platelets 353,000. Sodium 140, potassium 4.4, chloride 104, CO2 20, BUN 36, creatinine 1.3, glucose 99, calcium 8.7. ABG on room air reveals pH 7.41, pCO2 34, PO2 70, HC03 23, O2 saturation 97. ASSESSMENT: 1. Postoperative pericolostomy hernia repair, now stable. 2. Sepsis. 3. Left pneumonia. 4. Polymyalgia rheumatica, on steroids. 5. History of atrial fibrillation, currently in sinus. PLAN: Continue IV Zosyn. Prophylax for DVT with Lovenox. Continue IV steroids. Continue to observe her care in the ICU. cc: MD Van Renner MD
[2016-12-05 04:37] LABS: ALLEN TEST YES; BLOOD TYPE ARTERIAL; DRAW SITE R RADIAL; METHB 1.2 % (0.0-1.5); O2(CT) 20.6 mL/dL (15.0-23.0); PCO2(98.6) 28 mmHg (35-45); PO2(98.6) 86 mmHg (60-100); SAMPLE BLOOD; SAO2 98.3 % (95.0-100.0); THB 15.3 g/dL (11.5-17.4); pH(98.6) 7.45 (7.35-7.45)
[2016-12-05 04:38] LABS: MODALITY ROOM AIR
[2016-12-05] MEDS: ZOSYN 3.375 GM/NS 3.375 GM/50 ML IVPB IV SCH ×3 (05:07→21:44)
[2016-12-05 05:12] LABS: BASO% 0.3 % (0.0-0.8); EOS# 0.04 X1000 (0.0-0.7); EOS% 0.3 % (0.0-10.0); HEMATOCRIT 34.1 % (37.0-47.0); HEMOGLOBIN 11.1 g/dL (12.0-16.0); IMM GRAN# 0.27 X1000 (0.0-0.04); IMM GRAN% 1.9 % (0.0-0.5); LYMPH# 2.56 X1000 (1.2-3.4); LYMPH% 18.3 % (20.5-51.1); MANUAL DIFF NEEDED? YES; MCH 33.4 PG (27-31); MCHC 32.6 g/dL (33-37); MCV 102.7 FL (81-99); MONO# 0.95 X1000 (0.11-0.59); MONO% 6.8 % (1.7-9.3); MPV 10.3 FL (7.4-10.4); NEUT% 72.4 % (42.2-75.2); PLT 367 X1000 (130-400); RBC 3.32 XMIL (4.2-5.4)
[2016-12-05] MEDS: STERILE WATER INJ. INJ PRN ×2 (05:27→21:51)
[2016-12-05] MEDS: GEODON IM PRN ×3 (05:27→21:50)
[2016-12-05 05:36] LABS: CALCIUM 8.9 mg/dL (8.8-10.2); POTASSIUM 4.5 mmol/L (3.5-5.1)
--- NOTE | 2016-12-05 06:25 | PROGRESS NOTE ---
DATE: 12/05/2016 SUBJECTIVE: Staff reports some visual hallucinations by the patient. She is having ostomy output. She denies any nausea. Her NG tube is still low wall intermittent suction. Essentially minimal output. OBJECTIVE: Vital Signs: Patient is currently afebrile. Her vital signs have been stable. General: No acute distress. Resting comfortably. Cardiovascular: Appears regular rate and rhythm. Lungs: Grossly clear. Abdomen: Soft, nondistended. Previous ostomy site healing well. Scooter removed. New ostomy site is still edematous but viable. There is some hard stool noted in the appliance. LABORATORY: White blood cell count 14, hematocrit 34, the remainder of labs reviewed. Chest x- ray reviewed appears grossly normal. ASSESSMENT/PLAN: A 81-year-old female status post small-bowel obstruction secondary to parastomal hernia and status post repair of parastomal hernia and creation of new colostomy. 1. Postoperative state at this time, patient is off the ventilator. She has been stable. Given her altered mental status, will not give her p.o. intake yet, but will start tube feeds through her NG tube. We will start Glucerna. We will get a dietitian to see her, and if her mental status improves, will consider starting actual p.o. intake but otherwise will continue to monitor. 2. Hallucinations at this time might be related to being in the ICU. We will monitor for now. 3. Multiple medical comorbidities currently being managed by her primary care physician, Dr. Rebolledo. cc: MD Van Yates MD [facility]
[2016-12-05] MEDS: HUMALOG SUBQ SCH ×4 (06:33→21:43)
--- NOTE | 2016-12-05 07:12 | Diag Imaging Result Doc PS360 ---
CHEST-1 VIEW - 12/05/2016 INDICATION: SOB TECHNIQUE: COMPARISON: 12/04/2016 FINDINGS: Support lines and tubes are stable. There is no significant change in the patchy bibasilar infiltrates/atelectasis. No new infiltrates. Heart size remains stable. IMPRESSION: No change from prior. Electronically signed by Talon Grover 12/05/2016 7:10 AM
[2016-12-05] MEDS: DILAUDID IV PRN ×4 (07:50→21:49)
[2016-12-05] MEDS: SODIUM CHLORIDE 0.9% INJ SCH (07:50)
[2016-12-05] MEDS: PROTONIX IV SCH (07:50)
[2016-12-05] MEDS: LABETALOL IV PRN ×2 (07:55→12:19)
[2016-12-05] MEDS: LOVENOX SUBQ SCH (08:51)
[2016-12-05] MEDS: SOLU-MEDROL IV SCH (08:51)
[2016-12-05 09:01] LABS: LYMPHS 26 % (21-51); MONO 10 % (1-9)
[2016-12-05] MEDS: CLINIMIX E 4.25%-5% SOLUTION 1,000 ML IV SCH (10:19)
[2016-12-05] MEDS: 1/2 NS + KCL 20 MEQ 1,000 ML IV SCH (12:14)
[2016-12-05] MEDS: PHENERGAN IV PRN (17:04)
--- NOTE | 2016-12-05 23:11 | PROGRESS NOTE ---
DATE: 12/05/2016 SUBJECTIVE: This is the ICU care, apparently she is confused and belligerent, agitated requiring restraints and sedation, slightly tachycardic and NG tube was pulled out. There is nothing coming up from colostomy bag. Patient was seen by Dr. Mark Rodriguez. [place] present in the previous colostomy site slightly oozing, dressing was applied and patient is awake and coherent. EXAMINATION: Vital signs: Afebrile, vitals are stable. HEENT: Within normal limits. NG tube was seen, PICC line present on the right side. Chest: Clear. Heart: Sounds are regular. Belly: Is soft, obese, nontender. Good bowel sounds. Neurologic: Nonfocal. INVESTIGATIONS: Chest x-ray was stable. CBC. White cell count 14, hematocrit 34, platelets 367,000. ABG, pH is 7.45, pCO2 28 PO2 86. SMA 7 sodium 139, potassium 4.5, chloride 103, BUN 34, creatinine 1.3, glucose 215. ASSESSMENT AND PLAN: 1. Postop day 3, slightly ileus present. Continue on IV fluids, IV PPN and enteral feeding as per Dr. Mark Rodriguez. DVT prophylaxis with Lovenox. 2. Paroxysmal atrial fibrillation currently in sinus. 3. Intensive care unit psychosis. Will use the Geodon as needed. 4. Gastrointestinal prophylaxis with IV Protonix. PMR on prednisone 40 mg IV daily. Discussed with the family and will follow up. LEVEL OF DOCUMENTATION: Is 25 minutes. cc: Van Rebolledo MD
[2016-12-06] MEDS: DILAUDID IV PRN ×4 (02:16→23:34)
[2016-12-06] MEDS: PHENERGAN IV PRN ×2 (02:16→23:39)
[2016-12-06] MEDS: CLINIMIX E 4.25%-5% SOLUTION 1,000 ML IV SCH ×2 (03:32→21:13)
[2016-12-06 04:38] LABS: ALLEN TEST YES; BE -1.6 mmoll (-3.0-3.0); BLOOD TYPE ARTERIAL; DRAW SITE R RADIAL; METHB 1.1 % (0.0-1.5); MODALITY ROOM AIR; O2(CT) 8.6 mL/dL (15.0-23.0); PCO2(98.6) 31 mmHg (35-45); PO2(98.6) 85 mmHg (60-100); SAMPLE BLOOD; SAO2 99.9 % (95.0-100.0); THB 6.2 g/dL (11.5-17.4); pH(98.6) 7.46 (7.35-7.45)
[2016-12-06 04:45] LABS: MANUAL DIFF NEEDED? NO
[2016-12-06 04:47] LABS: BASO% 0.3 % (0.0-0.8); EOS# 0.07 X1000 (0.0-0.7); EOS% 0.6 % (0.0-10.0); HEMATOCRIT 35.5 % (37.0-47.0); HEMOGLOBIN 11.4 g/dL (12.0-16.0); IMM GRAN# 0.16 X1000 (0.0-0.04); IMM GRAN% 1.5 % (0.0-0.5); LYMPH# 2.06 X1000 (1.2-3.4); LYMPH% 18.9 % (20.5-51.1); MCH 32.9 PG (27-31); MCHC 32.1 g/dL (33-37); MCV 102.6 FL (81-99); MONO% 7.3 % (1.7-9.3); MPV 10.1 FL (7.4-10.4); NEUT% 71.4 % (42.2-75.2); PLT 361 X1000 (130-400); RBC 3.46 XMIL (4.2-5.4)
[2016-12-06 05:16] LABS: CALCIUM 8.8 mg/dL (8.8-10.2); POTASSIUM 4.4 mmol/L (3.5-5.1)
[2016-12-06 05:36] LABS: ALBUMIN 3.2 g/dL (3.5-5.0); DIRECT BILIRUBIN 0.2 mg/dL (0.00-0.20); TOTAL BILIRUBIN 0.47 mg/dL (0.20-1.00); TOTAL PROTEIN 6.8 g/dL (6.3-8.3)
[2016-12-06] MEDS: ZOSYN 3.375 GM/NS 3.375 GM/50 ML IVPB IV SCH ×3 (05:41→21:07)
[2016-12-06] MEDS ORDERED: POTASSIUM CHLORIDE 40 MEQ/SWI 40 MEQ/100 ML IVPB IV ONE (07:28)
[2016-12-06] MEDS: HUMALOG SUBQ SCH ×4 (07:34→21:15)
--- NOTE | 2016-12-06 07:38 | Diag Imaging Result Doc PS360 ---
EXAM: CHEST-1 VIEW INDICATION: SOB TECHNIQUE: One view COMPARISON: 12/05/2016 FINDINGS: Support tubes and lines are in stable position. Inspiration is suboptimal. Mild bibasilar infiltrates appear to continue to improve to near resolution. There are no new consolidations. Cardiac silhouette is stable. IMPRESSION: Continued improvement of the already mild bibasilar infiltrates. Electronically signed by Bulmaro Mayer 12/06/2016 7:36 AM
[2016-12-06] MEDS: LOVENOX SUBQ SCH (08:39)
[2016-12-06] MEDS: PROTONIX IV SCH (08:39)
[2016-12-06] MEDS: SOLU-MEDROL IV SCH (08:39)
[2016-12-06] MEDS: SODIUM CHLORIDE 0.9% INJ SCH (08:39)
--- NOTE | 2016-12-06 08:42 | PROGRESS NOTE ---
DATE: 12/06/2016 SUBJECTIVE: Patient is still altered. She is having ostomy output. She tolerated her tube feeds. OBJECTIVE: Vital Signs: Patient is currently afebrile. Her vital signs are stable. General: No acute distress. Cardiovascular: Regular rate and rhythm. Lungs: Grossly clear. Abdomen: Soft, nondistended. Previous ostomy site healing. New ostomy site appears viable with some stool in the appliance. LABORATORY: White blood cell count 10, hematocrit 35. Albumin 3.2. ASSESSMENT AND PLAN: This is a 81-year-old female status post small bowel obstruction secondary to parastomal hernia status post repair of peristomal hernia and creation of new colostomy. 1. Postoperative state. At this time the patient is off the ventilator. She is confused. We started nutrition through an NG tube. We will increase it to goal as set by nutrition. If she has mental status improvement maybe we can actually give her stuff by mouth. I suspect some of this might be related to being in the ICU and I suspect once we can get her out of the ICU she will have better cognitive function. 2. Multiple medical comorbidities currently being managed by her primary care physician, Dr. Rebolledo. cc: MD Van Yates MD
[2016-12-06] MEDS: ATIVAN IV PRN ×2 (10:15→14:34)
[2016-12-06] MEDS: PROZAC PO SCH (10:16)
[2016-12-06] MEDS: 1/2 NS + KCL 20 MEQ 1,000 ML IV SCH (11:56)
--- NOTE | 2016-12-06 18:25 | PROGRESS NOTE ---
DATE: 12/06/2016 SUBJECTIVE: The patient is still confused, tantrums, agitation. Other than that, vitals are stable. Demonstrating some delirium with ICU psychosis. REVIEW OF SYSTEMS: None reported other than intermittent confusion. Afebrile.Vital Signs: Stable. HEENT: Within normal limits. NG tube was seen on enteral feeding. PICC line on the right side. Chest: Clear. Heart: Sounds are regular. Abdomen: Belly is soft, and colostomy is working very well. Extremities: No peripheral edema. No obvious neurological deficits. INVESTIGATIONS: CBC: White cell count 10, hematocrit 35, platelets 161,000. ABG: PH is 7.46, pCO2 31, PO2 85, bicarb 23 on room air. SMA 7: Sodium 139, potassium 4.4, chloride 103, BUN 34, creatinine 1.2, glucose 135. LFTs were normal. Chest x-ray was stable. ASSESSMENT AND PLAN: 1. Postop day 3 repair of parastomal hernia and revision of colostomy working very well. 2. NG tube with enteral feeding. Continue increasing as tolerated. 3. ICU psychosis, delirium. Ativan as needed. 4. DVT prophylaxis with Lovenox. 5. Polymyalgia rheumatica. On IV steroids. Perioperative antibiotics with IV Zosyn. 6. Continue IV fluids and IV PPI and we will transfer to the step-down unit. I discussed with the family. Living Will is DNR and we will follow up. LEVEL OF DOCUMENTATION: 35 minutes. cc: Van Rebolledo MD
[2016-12-06] MEDS: ZOFRAN IV PRN (21:13)
[2016-12-07 05:02] LABS: MANUAL DIFF NEEDED? NO
[2016-12-07 05:22] LABS: BASO% 0.3 % (0.0-0.8); EOS# 0.22 X1000 (0.0-0.7); EOS% 1.7 % (0.0-10.0); HEMATOCRIT 35.2 % (37.0-47.0); HEMOGLOBIN 11.1 g/dL (12.0-16.0); IMM GRAN% 1.5 % (0.0-0.5); LYMPH# 2.15 X1000 (1.2-3.4); LYMPH% 16.4 % (20.5-51.1); MCH 32.8 PG (27-31); MCHC 31.5 g/dL (33-37); MCV 104.1 FL (81-99); MONO# 0.85 X1000 (0.11-0.59); MONO% 6.5 % (1.7-9.3); NEUT% 73.6 % (42.2-75.2); PLT 379 X1000 (130-400); RBC 3.38 XMIL (4.2-5.4)
[2016-12-07 05:30] LABS: MAGNESIUM 1.9 mg/dL (1.5-2.7)
[2016-12-07 05:36] LABS: CALCIUM 8.3 mg/dL (8.8-10.2); POTASSIUM 4.6 mmol/L (3.5-5.1)
[2016-12-07] MEDS: DILAUDID IV PRN (06:05)
[2016-12-07] MEDS: PHENERGAN IV PRN ×2 (06:05→20:17)
[2016-12-07] MEDS: ZOSYN 3.375 GM/NS 3.375 GM/50 ML IVPB IV SCH ×3 (06:11→21:02)
--- NOTE | 2016-12-07 06:26 | PROGRESS NOTE ---
DATE: 12/07/2016 SUBJECTIVE: The patient is still altered but she was transferred up to the CICU from the ICU. She did have an episode of nausea and has apparently pulled her ostomy appliance off during the night. Otherwise, she has calmed down since then, per the nursing staff. OBJECTIVE: Vital Signs: Patient is currently afebrile. Her vital signs are stable. General Examination: No acute distress. Cardiovascular: Regular rate and rhythm. Lungs: Grossly clear. Abdomen: Soft, nondistended. Previous ostomy site healing okay. New ostomy appliance appears viable with new appliance on board. Laboratory: White blood cell count is 13, hematocrit 35, platelet count 379,000. ASSESSMENT/PLAN: A 81-year-old, female, status post repair of parastomal hernia causing small-bowel obstruction. 1. Postoperative state. At this time, the patient is doing okay. She is altered. We will continue enteral tube feeds at this time and monitor mental status. I suspect she will improve once she is out of the intensive care unit. 2. Multiple medical comorbidities currently being managed by her primary care physician, Dr. Rebolledo. cc: MD Van Yates MD
[2016-12-07] MEDS: HUMALOG SUBQ SCH ×4 (06:29→20:50)
[2016-12-07] MEDS: PROTONIX IV SCH (08:23)
[2016-12-07] MEDS: SODIUM CHLORIDE 0.9% INJ SCH (08:23)
[2016-12-07] MEDS: LOVENOX SUBQ SCH (08:23)
[2016-12-07] MEDS: SOLU-MEDROL IV SCH (08:23)
[2016-12-07] MEDS: PROZAC PO SCH (08:24)
[2016-12-07] MEDS: ATIVAN IV PRN ×3 (08:52→20:00)
[2016-12-07] MEDS: LABETALOL IV PRN (09:27)
--- NOTE | 2016-12-07 09:28 | PROGRESS NOTE ---
DATE: 12/07/2016 SUBJECTIVE: The patient was agitated last night. Still under restraints. Sedation was given, not able to arouse. The patient was seen by Dr. Mark Rodriguez. NG tube was seen. PICC line on the right side present. REVIEW OF SYSTEMS: Unable to obtain. PHYSICAL EXAMINATION: Vital Signs: She is afebrile. Blood pressure is stable. Weighs 225 pounds. Chest: Clear to auscultation. Heart: Sounds are regular. Abdomen: Belly is soft, and colostomy is working very well. Neurological: No obvious neurological deficits. INVESTIGATIONS: 1. Altered mental status due to agitation requiring Ativan. Discontinue Dilaudid. 2. Enteral feeding tolerating 35 mL an hour, increase to 50. 3. Polymyalgia rheumatica on intravenous steroids. 4. Deep vein thrombosis/gastrointestinal prophylaxis. PLAN OF THE CARE: Today discussed with nurse Mcdonnell to discontinue Dilaudid and wake her up and keep her out of the bed with physical therapy and continue present medical therapy. Living Will, Do Not Resuscitate. LEVEL OF DOCUMENTATION: 25 minutes. cc: Van Rebolledo MD
[2016-12-07] MEDS: CARDIZEM 100 MG/NS 100 MG/100 ML IVPB IV SCH (09:47)
--- NOTE | 2016-12-07 10:37 | EKG Report ---
Test Performed on : 12/07/2016 08:59:52 AM Test Reason : Rhythm change Blood Pressure : / mmHG Vent. Rate : 158 BPM Atrial Rate : 357 BPM P-R Int : 000 ms QRS Dur : 074 ms QT Int : 246 ms P-R-T Axes : 000 039 199 degrees QTc Int : 398 ms Atrial fibrillation. with rapid ventricular response. Cannot rule out Anterior infarct (cited on or before 01-DEC-2016) ST \T\ T wave abnormality, consider inferolateral ischemia Abnormal ECG When compared with ECG of 01-DEC-2016 04:21, Serial changes of evolving Anterior infarct present Confirmed by Mg KOHLI, Paulino Arce ([id number]) on 12/07/2016 2:56:29 PM
[2016-12-07] MEDS: 1/2 NS + KCL 20 MEQ 1,000 ML IV SCH (14:07)
[2016-12-07] MEDS: CLINIMIX E 4.25%-5% SOLUTION 1,000 ML IV SCH (14:09)
[2016-12-07] MEDS: GEODON IM PRN (18:17)
[2016-12-07] MEDS ORDERED: STERILE WATER INJ. INJ ONE (22:27)
[2016-12-07] MEDS ORDERED: GEODON IM ONE (22:27)
[2016-12-07] MEDS: APRESOLINE IV PRN (23:56)
[2016-12-08] MEDS: PHENERGAN IV PRN (00:19)
[2016-12-08] MEDS: HYDROCODONE/APAP 7.5-325/15 ML PO PRN ×3 (05:07→21:41)
[2016-12-08 05:11] LABS: MANUAL DIFF NEEDED? NO
[2016-12-08 05:20] LABS: BASO% 0.2 % (0.0-0.8); EOS# 0.12 X1000 (0.0-0.7); EOS% 0.9 % (0.0-10.0); HEMATOCRIT 34.8 % (37.0-47.0); HEMOGLOBIN 11.3 g/dL (12.0-16.0); IMM GRAN# 0.15 X1000 (0.0-0.04); IMM GRAN% 1.2 % (0.0-0.5); LYMPH# 1.74 X1000 (1.2-3.4); LYMPH% 13.5 % (20.5-51.1); MCH 33.4 PG (27-31); MCHC 32.5 g/dL (33-37); MONO# 0.84 X1000 (0.11-0.59); MONO% 6.5 % (1.7-9.3); MPV 10.2 FL (7.4-10.4); NEUT% 77.7 % (42.2-75.2); PLT 345 X1000 (130-400); RBC 3.38 XMIL (4.2-5.4)
[2016-12-08] MEDS: CLINIMIX E 4.25%-5% SOLUTION 1,000 ML IV SCH ×2 (05:31→21:41)
[2016-12-08] MEDS: ZOSYN 3.375 GM/NS 3.375 GM/50 ML IVPB IV SCH ×3 (05:31→21:41)
[2016-12-08 05:38] LABS: CALCIUM 8.4 mg/dL (8.8-10.2)
[2016-12-08] MEDS: HUMALOG SUBQ SCH ×4 (06:10→22:53)
--- NOTE | 2016-12-08 07:24 | PROGRESS NOTE ---
DATE: 12/08/2016 SUBJECTIVE: The patient still agitated last night. Through the course of the day, by report from the nurse, she had minimal residuals on her tube feeds and then had 200 randomly. She had some episode of emesis, and her tube feeds have been held. Per the nursing staff, she has had output out of her ostomy which looks like liquid stool. The patient is currently resting comfortably at this time. OBJECTIVE: Vital Signs: The patient is currently afebrile. Her vital signs are stable. Her heart rate has been in the low 100s. General: No acute distress. Resting comfortably. Cardiovascular: Mildly tachycardic. Lungs grossly clear. Abdomen soft, nondistended. Previous ostomy site healing okay. New ostomy appliance in place, and the ostomy appears viable. There are hypoactive bowel sounds noted. LABORATORY: White blood cell count is 12, which is down from 13. Remainder of labs reviewed. ASSESSMENT AND PLAN: A 81-year-old, female, status post repair of peristomal hernia causing small bowel obstruction. 1. Postoperative state at this time: The patient's mental status is still somewhat of an issue. Her tube feeds are being held currently. She might potentially have a postoperative ileus. I have asked the nurses to continue to check residuals and, if they remain low, to restart the tube feeds. If she persists having nausea, we may need to consider abdominal film. 2. Multiple medical comorbidities currently being managed by her primary care physician, Dr. Rebolledo. cc: MD Van Yates MD
[2016-12-08] MEDS: SOLU-MEDROL IV SCH (08:51)
[2016-12-08] MEDS: LOVENOX SUBQ SCH (08:51)
[2016-12-08] MEDS: PROZAC PO SCH (08:51)
[2016-12-08] MEDS: PROTONIX IV SCH (08:51)
[2016-12-08] MEDS: SODIUM CHLORIDE 0.9% INJ SCH (08:51)
[2016-12-08] MEDS: ATIVAN IV PRN ×2 (10:28→17:31)
[2016-12-08] MEDS: 1/2 NS + KCL 20 MEQ 1,000 ML IV SCH (13:33)
--- NOTE | 2016-12-08 18:47 | PROGRESS NOTE ---
DATE: 12/08/2016 SUBJECTIVE: Patient is still confused requiring restraints and Ativan and Elmore. On NG tube. Tolerating tube feeding very well. Sedated. REVIEW OF SYSTEMS: None reported. PHYSICAL EXAMINATION: Vital Signs: Afebrile. Vitals are stable. 2 L nasal cannula 97%. HEENT Exam: Within normal limits. Chest: Clear. Heart: Sounds are regular. Abdomen: Belly is soft, nontender. Colostomy is working. Neurologic: Nonfocal. The patient has an NG tube, Gaines catheter, PICC line on the right side. Restraints present. INVESTIGATIONS: CBC: White cell count 12.9, hematocrit 34, platelets 345,000. SMA 7: Sodium 138, potassium 4.0, chloride 103, BUN 40, creatinine 1.3, glucose 219. ASSESSMENT AND PLAN: 1. Altered mental status with delirium and confusion no better. Continue on Ativan and [place] for pain. Discontinue Dilaudid. 2. Perioperative antibiotics with IV Zosyn. 3. Continue on IV fluids and IV PPN. 4. Enteral feeding with NG tube as tolerated. 5. PMR on IV steroids. 6. Diabetes on sliding scale with insulin coverage. 7. Deep venous thrombosis prophylaxis with Lovenox. 8. Paroxysmal atrial fibrillation. Currently in sinus. Off on Cardizem drip. LEVEL OF DOCUMENTATION: 25 minutes. cc: Van Rebolledo MD
[2016-12-09] MEDS: ATIVAN IV PRN ×4 (02:02→21:35)
[2016-12-09] MEDS: HYDROCODONE/APAP 7.5-325/15 ML PO PRN ×3 (04:40→21:22)
[2016-12-09] MEDS: ZOSYN 3.375 GM/NS 3.375 GM/50 ML IVPB IV SCH ×3 (05:30→21:21)
[2016-12-09 05:35] LABS: MANUAL DIFF NEEDED? NO
[2016-12-09 05:58] LABS: BASO% 0.1 % (0.0-0.8); EOS# 0.07 X1000 (0.0-0.7); EOS% 0.6 % (0.0-10.0); HEMATOCRIT 32.3 % (37.0-47.0); HEMOGLOBIN 10.2 g/dL (12.0-16.0); IMM GRAN# 0.13 X1000 (0.0-0.04); IMM GRAN% 1.2 % (0.0-0.5); LYMPH# 1.94 X1000 (1.2-3.4); LYMPH% 17.7 % (20.5-51.1); MCH 32.9 PG (27-31); MCHC 31.6 g/dL (33-37); MCV 104.2 FL (81-99); MONO% 6.4 % (1.7-9.3); MPV 10.3 FL (7.4-10.4); PLT 348 X1000 (130-400)
[2016-12-09 06:25] LABS: CALCIUM 8.3 mg/dL (8.8-10.2); POTASSIUM 4.4 mmol/L (3.5-5.1)
[2016-12-09] MEDS: HUMALOG SUBQ SCH ×4 (07:04→20:14)
--- NOTE | 2016-12-09 07:05 | PROGRESS NOTE ---
DATE: 12/09/2016 SUBJECTIVE: The patient is still agitated overnight but she has had less agitation over the course of this night than compared to previous. She has not pulled out her PICC line or NG tube. Her tube feeds are currently running which she seems to be tolerated. She is having ostomy output. OBJECTIVE: Vital Signs: Patient is currently afebrile. Her vital signs are stable. Her heart rate is still in the low 100. General: No acute distress. Resting comfortably. Cardiovascular: Mildly tachycardic. Lungs: Grossly clear. Abdomen: Soft, nondistended. Previous ostomy site healing okay. New ostomy site doing well with stool appliance. LABORATORY: Currently pending. ASSESSMENT/PLAN: A 81-year-old, female, status post repair of parastomal hernia causing bowel obstruction. 1. Postoperative state. At this time, patient's mental status is still somewhat of an issue. When she is more alert, we could remove her nasogastric tube and start her on a diet. Until then, we need to continue tube feeds. 2. Multiple medical comorbidities. Currently being managed by her primary care physician, Dr. Rebolledo. cc: MD Van Yates MD
[2016-12-09] MEDS: LOVENOX SUBQ SCH (08:23)
[2016-12-09] MEDS: SOLU-MEDROL IV SCH (08:23)
[2016-12-09] MEDS: PROZAC PO SCH (08:23)
[2016-12-09] MEDS: PROTONIX IV SCH (08:24)
[2016-12-09] MEDS: 1/2 NS + KCL 20 MEQ 1,000 ML IV SCH (11:48)
[2016-12-09] MEDS: CLINIMIX E 4.25%-5% SOLUTION 1,000 ML IV SCH (13:50)
--- NOTE | 2016-12-09 17:17 | PROGRESS NOTE ---
DATE: 12/09/2016 SUBJECT: The patient is awake, able to recognize me, still restraints and tube feeds are going underway, no complaints and she is getting stool in the colostomy bag. REVIEW OF SYSTEMS: None reported other than altered mental status and confusion. PHYSICAL EXAMINATION: Vital Signs: Low-grade fever, tachycardic and remained in sinus, blood pressure is 149/66, room air pulse oximetry 100% and I's and O's are -2 L. HEENT: Within normal limits. Facial rash on the left side completed resolved. Neck: Supple. Chest: Clear. Heart: Sounds are regular. Belly: Soft, obese, nontender. [place] present at the revision of the colostomy site. Extremities: No peripheral edema. Occasionally bruising noted. Neuro: No obvious neurological deficits. INVESTIGATIONS: CBC, white cell count 10, hematocrit 32, platelets 348,000. SMA 7. Sodium 137, potassium 4.4, chloride 103, BUN 39, creatinine 1.3, glucose 243. ASSESSMENT AND PLAN: 1. Altered mental status due to delirium resolving. 2. Shingles on the left side of the face resolving. 3. Small bowel obstruction due to parastomal hernia repair by Dr. Mark Rodriguez doing very well. Discontinue nasogastric tube. 4. Polymyalgia rheumatica on intravenous steroid. 5. Deep vein thrombosis, gastrointestinal prophylaxis with Lovenox, Protonix respectively. 6. Plan of care. Discontinue NG tube, out of the bed. Continue IV fluids and liquid diet as tolerated. 7. Advanced directives. Do not resuscitate. Will see her progress over the weekend. cc: Van Rebolledo MD [facility]
[2016-12-10] MEDS: SODIUM CHLORIDE 0.9% INJ SCH ×2 (01:24→08:59)
[2016-12-10] MEDS: PHENERGAN IV PRN (01:24)
[2016-12-10] MEDS: CARDIZEM 100 MG/NS 100 MG/100 ML IVPB IV SCH (02:08)
[2016-12-10 05:01] LABS: MANUAL DIFF NEEDED? NO
[2016-12-10 05:02] LABS: BASO% 0.2 % (0.0-0.8); EOS# 0.11 X1000 (0.0-0.7); HEMATOCRIT 32.2 % (37.0-47.0); HEMOGLOBIN 10.3 g/dL (12.0-16.0); IMM GRAN# 0.23 X1000 (0.0-0.04); IMM GRAN% 2.1 % (0.0-0.5); LYMPH# 1.99 X1000 (1.2-3.4); LYMPH% 18.4 % (20.5-51.1); MCH 33.1 PG (27-31); MCV 103.5 FL (81-99); MONO% 10.2 % (1.7-9.3); MPV 9.7 FL (7.4-10.4); NEUT% 68.1 % (42.2-75.2); PLT 360 X1000 (130-400); RBC 3.11 XMIL (4.2-5.4)
[2016-12-10 05:20] LABS: CALCIUM 8.3 mg/dL (8.8-10.2)
[2016-12-10] MEDS: HYDROCODONE/APAP 7.5-325/15 ML PO PRN ×3 (05:27→22:33)
[2016-12-10] MEDS: CLINIMIX E 4.25%-5% SOLUTION 1,000 ML IV SCH ×4 (05:28→23:58)
[2016-12-10] MEDS: ZOSYN 3.375 GM/NS 3.375 GM/50 ML IVPB IV SCH ×3 (05:54→21:10)
[2016-12-10] MEDS: HUMALOG SUBQ SCH ×4 (06:00→21:10)
--- NOTE | 2016-12-10 08:26 | PROGRESS NOTE ---
DATE: 12/10/2016 SUBJECTIVE: Ms. Leonardo is a 81-year-old female patient with multiple medical problems, including diabetes mellitus, chronic atrial fibrillation diverticulosis. Patient had paracolostomy hernia, polymyalgia rheumatica. She had shingles 3 weeks ago on the face. Patient admitted with small-bowel obstruction. The patient underwent surgery. The patient found to have intestinal obstruction, incarcerated parastomal hernia which was repaired by Dr. Rodriguez. The patient tolerated procedure well. The patient is doing better, although the patient is still weak. The patient does have some confusion. Admission history and physical, operative note and her progress reviewed. Patient does have some dementia and confusion and delirium. Patient is not able to give good history. OBJECTIVE: Vital Signs: Her vital signs noted. Neck: Supple. No JVD. Lungs: Bibasilar crepitations. Heart: S1 and S2. Irregularly irregular. There is a 2/6 systolic murmur at the apex. Abdomen: Soft, globular. Bowel sounds present. Scar of recent surgery healing well. The patient does have colostomy. Extremities: No cyanosis, clubbing. No acute DVT. PROJECT DESIGNER: Alert, awake uncooperative for detailed exam. LAB DATA: Lab data done today: WBC count 10.79, hemoglobin 10.3, hematocrit 32.2, platelet count 360. BUN was 33, creatinine 1.2. Potassium was 4. CONSIDERATION: 1. Intestinal obstruction, parastomal hernia status post surgery. 2. Atrial fibrillation with rapid ventricular response. 3. Polymyalgia rheumatica. 4. Other problem includes shingles on the left side of the face. No rash at present, but patient seems to have neuralgic pain on the face. 5. Gastritis and reflux disease. 6. Osteoarthritis. 7. Delirium. PLAN: Overall plan discussed with the patient's daughter and she is in agreement. I am going to get physical therapy evaluation. Continue rest of the treatment and close observation. The patient is getting parenteral nutrition. She is on DVT and GI prophylaxis. cc: MD Van Oliva MD
--- NOTE | 2016-12-10 08:39 | PROGRESS NOTE ---
DATE: 12/10/2016 SUBJECTIVE: Some atrial fibrillation with RVR overnight. Otherwise, having bowel function. Started on Cardizem drip. OBJECTIVE: Vital signs: Heart rate has been in the 100s to 120s, no fevers. Abdomen: Soft, appropriately tender. Incision clean, dry, and intact. LABS: White count is down to 10. Hematocrit is stable at 32. Creatinine is 1.2. ASSESSMENT AND PLAN: A 81-year-old female status post parastomal hernia repair. From a surgical standpoint, she seems to be doing okay. Can advance her diet as tolerated. Will defer medical management to Dr. Rebolledo. Will continue to follow along. cc: MD Van Alexander MD
[2016-12-10] MEDS: SOLU-MEDROL IV SCH (08:59)
[2016-12-10] MEDS: ATIVAN IV PRN ×3 (08:59→21:09)
[2016-12-10] MEDS: PROTONIX IV SCH (08:59)
[2016-12-10] MEDS: PROZAC PO SCH (09:00)
[2016-12-10] MEDS: LOVENOX SUBQ SCH (09:00)
[2016-12-10] MEDS: 1/2 NS + KCL 20 MEQ 1,000 ML IV SCH (12:43)
[2016-12-11] MEDS: STERILE WATER INJ. INJ PRN (02:09)
[2016-12-11] MEDS: GEODON IM PRN (02:09)
[2016-12-11 05:15] LABS: MANUAL DIFF NEEDED? NO
[2016-12-11 05:21] LABS: BASO% 0.2 % (0.0-0.8); EOS# 0.02 X1000 (0.0-0.7); EOS% 0.2 % (0.0-10.0); HEMATOCRIT 33.2 % (37.0-47.0); HEMOGLOBIN 10.7 g/dL (12.0-16.0); IMM GRAN# 0.24 X1000 (0.0-0.04); IMM GRAN% 2.6 % (0.0-0.5); LYMPH# 1.78 X1000 (1.2-3.4); LYMPH% 19.2 % (20.5-51.1); MCH 33.3 PG (27-31); MCHC 32.2 g/dL (33-37); MCV 103.4 FL (81-99); MONO# 0.89 X1000 (0.11-0.59); MONO% 9.6 % (1.7-9.3); NEUT% 68.2 % (42.2-75.2); PLT 393 X1000 (130-400); RBC 3.21 XMIL (4.2-5.4)
[2016-12-11] MEDS: ZOSYN 3.375 GM/NS 3.375 GM/50 ML IVPB IV SCH ×3 (06:00→21:51)
[2016-12-11] MEDS: HUMALOG SUBQ SCH ×4 (06:00→21:51)
[2016-12-11 07:28] LABS: ALBUMIN 3.4 g/dL (3.5-5.0); CALCIUM 8.7 mg/dL (8.8-10.2); TOTAL BILIRUBIN 0.37 mg/dL (0.20-1.00); TOTAL PROTEIN 6.4 g/dL (6.3-8.3)
[2016-12-11] MEDS: ATIVAN IV PRN (07:55)
[2016-12-11] MEDS: PROZAC PO SCH (09:09)
[2016-12-11] MEDS: SODIUM CHLORIDE 0.9% INJ SCH ×2 (09:09→21:51)
[2016-12-11] MEDS: LOVENOX SUBQ SCH (09:09)
[2016-12-11] MEDS: PROTONIX IV SCH ×2 (09:09→21:51)
[2016-12-11] MEDS: SOLU-MEDROL IV SCH (09:09)
--- NOTE | 2016-12-11 10:22 | PROGRESS NOTE ---
DATE: 12/11/2016 SUBJECTIVE: No major events. Intermittent atrial fibrillation. She is having ostomy output. No real complaints this morning. OBJECTIVE: No fevers. No tachycardia. Blood pressure 150/92. Abdomen is soft, appropriately tender. Incision is clean, dry, and intact. Her ostomy is pink, viable with some air in the bag. ASSESSMENT AND PLAN: We will continue medical management per Dr. Rebolledo's team. From a surgical standpoint, she is doing okay and tolerating a diet. We will continue to follow along. cc: MD Van Alexander MD
--- NOTE | 2016-12-11 11:30 | PROGRESS NOTE ---
DATE: 12/11/2016 SUBJECTIVE: Ms. Leonardo is doing fair. The patient does have significant agitation at times, behavior abnormality. She was trying to pull her IV out, pull her colostomy bag. At times restless. No nausea or vomiting. Oral intake is poor. The patient was putting her finger in her mouth. History part was limited. The patient is status post surgery for intestinal obstruction and parastomal hernia. OBJECTIVE: Vital signs: Noted. Patient is afebrile. At times, tachycardia. Skin: Senile turgor. Neck: Supple. No JVD. Lungs: Bibasilar crepitations. Heart: S1 and S2 heard. Abdomen: Soft, globular. Bowel sounds present. Wound of recent surgery looks okay. Colostomy functioning well. Extremities: No cyanosis, clubbing. OCULAR CARE AIDE: Alert, awake. Answering question fair. Able to move all 4 limbs. Patient does have confusion and delirium. LAB DATA: Done this morning, WBC count 9.29, hemoglobin 10.7, hematocrit 33.2, platelet count 393,000. Electrolytes were fairly benign. Magnesium level was 2. ASSESSMENT AND PLAN: The patient does have multiple complex problems. 1. Recent surgery for intestinal obstruction. Doing fair. Surgeon following patient with us. 2. Respiratory failure. On BiPAP at night. 3. Delirium and agitation. I think there is an issue of pain which could be due to her recent shingles and postherpetic neuralgia. I am going to try Dilaudid for pain control. 4. She does have polymyalgia rheumatica. I am going to increase steroid. 5. Atrial fibrillation with rapid ventricular response. Her Cardizem drip is off. 6. Deconditioning. Overall prognosis fair. Family is aware of the prognosis. cc: MD Van Oliva MD
[2016-12-11] MEDS: DILAUDID IV PRN ×3 (11:41→22:08)
--- NOTE | 2016-12-11 12:00 | Diag Imaging Result Doc PS360 ---
CHEST-2 VIEWS - 12/11/2016 INDICATION: hypoxia TECHNIQUE: COMPARISON: None FINDINGS: Stable right PICC line. The nasogastric tube has been removed. Stable severely low lung volumes. Stable crowding/atelectasis in the lung bases. IMPRESSION: No significant change from prior. Electronically signed by Talon Grover 12/11/2016 11:58 AM
[2016-12-11] MEDS: 1/2 NS + KCL 20 MEQ 1,000 ML IV SCH (14:33)
[2016-12-11] MEDS: CLINIMIX E 4.25%-5% SOLUTION 1,000 ML IV SCH (16:03)
[2016-12-12] MEDS: DILAUDID IV PRN ×2 (04:02→07:07)
[2016-12-12 05:27] LABS: BASO% 0.8 % (0.0-0.8); EOS# 0.31 X1000 (0.0-0.7); HEMATOCRIT 34.2 % (37.0-47.0); HEMOGLOBIN 10.9 g/dL (12.0-16.0); IMM GRAN# 0.33 X1000 (0.0-0.04); IMM GRAN% 3.2 % (0.0-0.5); LYMPH# 2.27 X1000 (1.2-3.4); LYMPH% 22.3 % (20.5-51.1); MANUAL DIFF NEEDED? NO; MCH 33.5 PG (27-31); MCHC 31.9 g/dL (33-37); MCV 105.2 FL (81-99); MONO# 0.98 X1000 (0.11-0.59); MONO% 9.6 % (1.7-9.3); NEUT% 61.1 % (42.2-75.2); PLT 415 X1000 (130-400); RBC 3.25 XMIL (4.2-5.4)
[2016-12-12] MEDS: ZOSYN 3.375 GM/NS 3.375 GM/50 ML IVPB IV SCH ×3 (05:35→20:59)
[2016-12-12 05:36] LABS: CALCIUM 8.4 mg/dL (8.8-10.2); POTASSIUM 4.3 mmol/L (3.5-5.1)
[2016-12-12] MEDS: CLINIMIX E 4.25%-5% SOLUTION 1,000 ML IV SCH ×2 (05:36→14:39)
[2016-12-12] MEDS: HUMALOG SUBQ SCH ×4 (06:01→20:59)
--- NOTE | 2016-12-12 06:25 | EKG Report ---
Test Performed on : 12/10/2016 01:42:21 AM Test Reason : A- fib Blood Pressure : / mmHG Vent. Rate : 139 BPM Atrial Rate : 138 BPM P-R Int : 000 ms QRS Dur : 074 ms QT Int : 294 ms P-R-T Axes : 000 037 214 degrees QTc Int : 447 ms Atrial fibrillation. with rapid ventricular response. with premature ventricular or aberrantly condu cted complexes. Nonspecific ST and T wave abnormality Abnormal ECG When compared with ECG of 07-DEC-2016 08:59, ST now depressed in Inferior leads Confirmed by Mg KOHLI, Paulino Arce ([id number]) on 12/13/2016 2:14:26 PM
--- NOTE | 2016-12-12 06:41 | PROGRESS NOTE ---
DATE: 12/12/2016 SUBJECTIVE: Reviewed the notes from over the weekend. She is still somewhat agitated. Her NG tube was removed Monday. She has been NPO since. She is having ostomy output reported. OBJECTIVE: Vital Signs: Patient is currently afebrile. Her vital signs were stable. She is still was a heart rate in the 100, which is consistent with her normal vital signs. General Examination: In no acute distress. Resting comfortably. Cardiovascular: Mildly tachycardic. Lungs: Grossly clear. Abdomen: Soft, nondistended. Previous ostomy site healing well. New ostomy site doing well. LABORATORY: White blood cell count 10, hematocrit is 34. These are essentially unchanged. The remainder of her labs reviewed. BUN and creatinine are slightly increased. ASSESSMENT/PLAN: 1. A 81-year-old female, status post repair parastomal hernia causing bowel obstruction. Postoperative state at this time. Patient's mental status is still an issue. Her NG tube is out. She is currently NPO. I will get a speech evaluation to see how well she is able to handle the mechanics of swallowing and if she is able to tolerate it would start her on p.o. while she is awake. If unable to, may need to insert a Dobbhoff tube for enteral nutrition until her mental status improves. 2. Multiple medical comorbidities including increasing BUN and creatinine. Can be managed by her primary care physician, Dr. Rebolledo. cc: MD Van Yates MD MTDD
[2016-12-12] MEDS: CARDIZEM 100 MG/NS 100 MG/100 ML IVPB IV SCH ×3 (07:01→21:00)
--- NOTE | 2016-12-12 07:35 | EKG Report ---
Test Performed on : 12/12/2016 06:43:51 AM Test Reason : Increased HR Blood Pressure : / mmHG Vent. Rate : 160 BPM Atrial Rate : 136 BPM P-R Int : 000 ms QRS Dur : 068 ms QT Int : 268 ms P-R-T Axes : 000 040 222 degrees QTc Int : 437 ms Atrial fibrillation. with rapid ventricular response. ST \T\ T wave abnormality, consider inferolateral ischemia Abnormal ECG When compared with ECG of 10-DEC-2016 04:26, (Unconfirmed) Atrial fibrillation. has replaced Sinus rhythm. Vent. rate has increased BY 56 BPM Criteria for Septal infarct are no longer present ST now depressed in Anterior leads T wave inversion now evident in Inferior leads T wave inversion now evident in Anterolateral leads Confirmed by Mg KOHLI, Paulino Arce ([id number]) on 12/13/2016 2:16:04 PM
[2016-12-12] MEDS: LOVENOX SUBQ SCH (09:28)
[2016-12-12] MEDS: NEURONTIN PO SCH ×3 (09:29→16:49)
[2016-12-12] MEDS: SOLU-MEDROL IV SCH (09:29)
[2016-12-12] MEDS: PROTONIX IV SCH ×2 (09:29→20:56)
[2016-12-12] MEDS: SODIUM CHLORIDE 0.9% INJ SCH ×2 (09:29→20:56)
[2016-12-12] MEDS: PROZAC PO SCH (09:29)
--- NOTE | 2016-12-12 14:04 | Diag Imaging Result Doc PS360 ---
EXAM: HEAD W/O CONTRAST HISTORY: confusion, TECHNIQUE: COMPARISON: 11/13/2016 FINDINGS: No parenchymal hemorrhage. No epidural or subdural hematoma. No subarachnoid hemorrhage. No mass identified on this noncontrasted exam. No hydrocephalus. There are chronic microvascular ischemic changes. No sinus opacification. IMPRESSION: No hemorrhage. Stable exam. Electronically signed by Guzman Arrington 12/12/2016 2:02 PM
[2016-12-12] MEDS: 1/2 NS + KCL 20 MEQ 1,000 ML IV SCH (14:39)
--- NOTE | 2016-12-12 19:13 | PROGRESS NOTE ---
DATE: 12/12/2016 SUBJECTIVE: Apparently the patient is has not eating well and crying a lot and putting her hands in her mouth and screaming, yelling, requiring pain medicines. NG tube was taken out. Family wants a CAT scan. Interval history was reviewed over the weekend. REVIEW OF SYSTEMS: Constitutional: The patient is awake. Complains of pain in the jaw on the left side. Cardiopulmonary: No chest pain, shortness of breath, PND, orthopnea. GI: Colostomy is working. Extremities: No swelling of feet. OBJECTIVE: Vital signs: She is a afebrile. She is tachycardic. HEENT: Rash is better. Neck: Supple. Chest: Clear to auscultation. Cardiovascular: Heart sounds are regular irregular, tachycardic. Abdomen: Belly is soft, nontender. Good bowel sounds. Colostomy is working good. Extremities: No edema. Neurologic: Nonfocal. INVESTIGATIONS: CT head was negative. EKG: Rapid atrial fibrillation. CBC: White cell count 10, hematocrit 34, platelets 415,000. SMA 7: Sodium 139, potassium 4.3, BUN 36, creatinine 1.4, glucose 305. ASSESSMENT AND PLAN: 1. Altered mental status. Probably due to postherpetic neuralgia. Start with Neurontin and [place]. CT head is negative. 2. Atrial fibrillation. Continue on IV Cardizem. 3. Clear liquid diet. Continue on IV fluids. IV ProcalAmine. 4. Deep vein thrombosis and paroxysmal atrial fibrillation. On Lovenox and warfarin. We will check the labs in the morning. 5. Perioperative antibiotics and IV Zosyn. 6. Gastrointestinal prophylaxis. IV Protonix. 7. Depression. On Prozac 40 mg daily. 8. Discussed with the family about the care plan. LEVEL OF DOCUMENTATION: 35 minutes. We will follow up. cc: Van Rebolledo MD
[2016-12-13] MEDS: CLINIMIX E 4.25%-5% SOLUTION 1,000 ML IV SCH ×2 (05:23→23:40)
[2016-12-13] MEDS: ZOSYN 3.375 GM/NS 3.375 GM/50 ML IVPB IV SCH ×3 (05:23→21:11)
[2016-12-13 05:53] LABS: MANUAL DIFF NEEDED? NO
[2016-12-13 05:56] LABS: BASO% 0.1 % (0.0-0.8); LYMPH% 11.1 % (20.5-51.1); PLT 409 X1000 (130-400)
[2016-12-13 06:16] LABS: INR 1.01; PROTIME 10.6 Seconds (9.2-11.7)
[2016-12-13 06:20] LABS: EOS# 0.03 X1000 (0.0-0.7); EOS% 0.3 % (0.0-10.0); HEMATOCRIT 31.7 % (37.0-47.0); HEMOGLOBIN 10.1 g/dL (12.0-16.0); IMM GRAN# 0.26 X1000 (0.0-0.04); IMM GRAN% 2.7 % (0.0-0.5); LYMPH# 1.08 X1000 (1.2-3.4); MCH 32.8 PG (27-31); MCHC 31.9 g/dL (33-37); MCV 102.9 FL (81-99); MONO# 0.71 X1000 (0.11-0.59); MONO% 7.3 % (1.7-9.3); MPV 10.1 FL (7.4-10.4); NEUT% 78.5 % (42.2-75.2); RBC 3.08 XMIL (4.2-5.4)
[2016-12-13] MEDS: HUMALOG SUBQ SCH ×4 (06:58→21:08)
[2016-12-13] MEDS: CARDIZEM 100 MG/NS 100 MG/100 ML IVPB IV SCH ×2 (07:00→17:25)
--- NOTE | 2016-12-13 07:28 | PROGRESS NOTE ---
DATE: 12/13/2016 SUBJECTIVE: Patient had a CT scan done yesterday of her head that was essentially read as normal. She has been less agitated overnight. She did not have her speech evaluation because she was too sedated, but she is on clear liquids which she apparently is tolerating. OBJECTIVE: Vital Signs: Have been stable. She has been afebrile. General: Resting comfortably. No acute distress. Cardiovascular: Mildly tachycardic. Lungs: Grossly clear. Abdomen: Soft, nondistended. Previous ostomy site healing well. New ostomy site doing well. ASSESSMENT/PLAN: 1. A 81-year-old female, status post repair of parastomal hernia causing bowel obstruction. Postoperative state at this time, patient is doing well. Mental status is still somewhat of an issue. Her CT scan is negative. Speech eval is currently pending. We will continue to monitor. 2. Multiple medical comorbidities currently being managed by her primary care physician, Dr. Rebolledo. cc: MD Van Yates MD
[2016-12-13 08:00] LABS: CALCIUM 8.4 mg/dL (8.8-10.2); POTASSIUM 4.3 mmol/L (3.5-5.1)
[2016-12-13] MEDS: PROZAC PO SCH (09:41)
[2016-12-13] MEDS: NEURONTIN PO SCH ×3 (09:41→21:11)
[2016-12-13] MEDS: LOVENOX SUBQ SCH (09:41)
[2016-12-13] MEDS: PROTONIX IV SCH ×2 (09:41→21:11)
[2016-12-13] MEDS: SOLU-MEDROL IV SCH (09:41)
[2016-12-13] MEDS ORDERED: CALMOSEPTINE OINTMENT TOP PRN (10:34)
[2016-12-13] MEDS: ATIVAN IV PRN (11:19)
[2016-12-13] MEDS: DILAUDID IV PRN ×3 (12:58→21:12)
[2016-12-13] MEDS: 1/2 NS + KCL 20 MEQ 1,000 ML IV SCH (13:01)
[2016-12-13 16:42] LABS: URINE SOURCE CATH
[2016-12-13 16:50] LABS: BILIRUBIN URINE NEGATIVE (NEGATIVE); BLOOD URINE TRACE (NEGATIVE); COLOR YELLOW; GLUCOSE URINE NEGATIVE (NEGATIVE); LEUKOCYTES URINE LARGE (NEGATIVE); NITRITE URINE NEGATIVE (NEGATIVE); PROTEIN URINE TRACE mg/dL (NEGATIVE); SP GRAVITY URINE 1.014; TURBIDITY URINE HAZY (CLEAR); UROBILINOGEN URINE NORMAL (NORMAL)
[2016-12-13 16:58] LABS: UR EPITHELIAL CELLS <10 /HPF (<10); URINE BACTERIA NEGATIVE /HPF; URINE MICRO REVIEW NEEDED? YES; URINE RBC TNTC /HPF (<10); URINE WBC TNTC /HPF (<10)
--- NOTE | 2016-12-13 18:49 | PROGRESS NOTE ---
DATE: 12/13/2016 SUBJECTIVE: Interval history was reviewed. Family was there at the bedside. CT head was negative. The left sided shingles pain, post herpetic neuralgia improving on Neurontin. Patient is more alert, eating very well and decreased mental confusion. REVIEW OF SYSTEMS: None reported. PHYSICAL EXAMINATION: Vital Signs: Afebrile, tachycardic. Blood pressure is 160/80, room air 100%. Heavy set. HEENT: Within normal limits. Neck: Supple. Chest: Clear. Heart: Sounds are regular. Abdomen: Belly is soft, nontender. Good bowel sounds. Colostomy is working. Extremities: No peripheral edema, cyanosis. Neurologic: No obvious neurological deficits. INVESTIGATIONS: White cell count 9.7, hematocrit 31, platelets 409. PT 10. INR 1.0. SMA-7: Sodium 136, potassium 4.3, chloride 103, BUN 32, creatinine 1.2. Sedimentation rate was 68. CRP 23. ASSESSMENT AND PLAN: 1. Left post herpetic neurology, 7th nerve distribution. CT head was negative. Improving on Neurontin. 2. Ileus is improving, post parastomal hernia repair, revision of colostomy. 3. Polymyalgia rheumatica. Sedimentation rate is 68. Continue on IV steroids. 4. Deep vein thrombosis, gastrointestinal prophylaxis. As has been going. Plan of care: Out of the bed. and advanced diet, Continue on sliding scale with insulin coverage and reactive depression on Prozac. Discussed with the patient's family and hopefully she is slowly improving. LEVEL OF DOCUMENTATION: 25 minutes. cc: Van Rebolledo MD MTDD
[2016-12-13] MEDS: SODIUM CHLORIDE 0.9% INJ SCH (21:11)
[2016-12-14] MEDS: DILAUDID IV PRN ×6 (01:35→21:29)
[2016-12-14] MEDS: CARDIZEM 100 MG/NS 100 MG/100 ML IVPB IV SCH ×3 (02:23→21:26)
[2016-12-14] MEDS: ZOSYN 3.375 GM/NS 3.375 GM/50 ML IVPB IV SCH ×3 (05:35→21:28)
[2016-12-14 05:39] LABS: MANUAL DIFF NEEDED? NO
[2016-12-14 05:48] LABS: BASO% 0.2 % (0.0-0.8); HEMATOCRIT 31.6 % (37.0-47.0); HEMOGLOBIN 9.9 g/dL (12.0-16.0); IMM GRAN# 0.19 X1000 (0.0-0.04); LYMPH# 1.35 X1000 (1.2-3.4); LYMPH% 14.4 % (20.5-51.1); MCH 32.9 PG (27-31); MCHC 31.3 g/dL (33-37); MONO# 0.63 X1000 (0.11-0.59); MONO% 6.7 % (1.7-9.3); MPV 10.3 FL (7.4-10.4); NEUT% 76.7 % (42.2-75.2); PLT 435 X1000 (130-400); RBC 3.01 XMIL (4.2-5.4)
--- NOTE | 2016-12-14 06:08 | PROGRESS NOTE ---
DATE: 12/14/2016 SUBJECTIVE: Patient doing well. More alert today. She is able to tolerate her p.o. at this point. OBJECTIVE: Vital Signs: Patient is currently afebrile. Her vital signs have been stable. General: Resting comfortably. No acute distress. Cardiovascular: Mildly tachycardic. Regular rate and rhythm. Lungs: Grossly clear. Abdomen: Soft, appropriately tender. The previous ostomy site healing well. New ostomy site doing well. ASSESSMENT/PLAN: A 81-year-old, female, status post repair of parastomal hernia causing bowel obstruction. 1. Postoperative state at this time, patient is doing well. Her mental status is improving. She is able tolerate p.o. She is having ostomy output. From a surgical point of view, she could likely be transitioned to a jail facility or rehab facility but will defer to her primary care physician. 2. Multiple medical comorbidities. Currently being managed by her primary care physician, Dr. Rebolledo. cc: MD Van Yates MD
[2016-12-14] MEDS: HUMALOG SUBQ SCH ×4 (06:16→21:26)
[2016-12-14 07:36] LABS: POTASSIUM 4.9 mmol/L (3.5-5.1)
--- NOTE | 2016-12-14 08:50 | PROGRESS NOTE ---
DATE: 12/14/2016 SUBJECTIVE: The patient is more alert. Pain is less on the left side of the face. Eating well, out of the bed. Slowly improving. REVIEW OF SYSTEMS: None reported. OBJECTIVE: Vitals: Afebrile. Blood pressure is 150/80, and room air 98%. 230 pounds. HEENT: Atraumatic, normocephalic. Pupils equal, reactive to light. Neck: Supple. No lymphadenopathy. Chest: Bilateral air entry. Heart: Sounds are regular. Now in sinus. Abdomen: Belly is soft, obese, nontender. Good bowel sounds. Extremities: PICC line on the right side present. INVESTIGATIONS: CBC: White cell count 9.3, hematocrit 31, platelets 435. SMA-7: Sodium 136, potassium 4.9, BUN 35, creatinine 1.2. ASSESSMENT: 1. Altered mental status, improving. 2. Small-bowel obstruction. This is better. 3. Polymyalgia rheumatica. Continue on IV steroids. 4. Atrial fibrillation. Currently in sinus. 5. Deep vein thrombosis prophylaxis with Lovenox. 6. Reactive depression on Prozac. 7. Post-herpetic neuralgia pain on the left side of the face. Continue on gabapentin. PLAN OF CARE: Out of the bed. Advance the diet and discussed with the social security specialist for rehab placement on Monday. LEVEL OF DOCUMENTATION: 25 minutes. cc: Van Rebolledo MD
[2016-12-14] MEDS: PROTONIX IV SCH ×2 (09:00→21:28)
[2016-12-14] MEDS: SODIUM CHLORIDE 0.9% INJ SCH ×2 (09:01→21:28)
[2016-12-14] MEDS: SOLU-MEDROL IV SCH (09:02)
[2016-12-14] MEDS: LOVENOX SUBQ SCH (09:02)
[2016-12-14] MEDS: NEURONTIN PO SCH ×3 (09:02→21:28)
[2016-12-14] MEDS: PROZAC PO SCH (09:02)
[2016-12-14] MEDS: 1/2 NS + KCL 20 MEQ 1,000 ML IV SCH (11:31)
[2016-12-14] MEDS: CLINIMIX E 4.25%-5% SOLUTION 1,000 ML IV SCH (16:23)
[2016-12-15] MEDS: DILAUDID IV PRN ×5 (02:39→16:42)
[2016-12-15 05:33] LABS: INR 1.01; PROTIME 10.6 Seconds (9.2-11.7)
[2016-12-15] MEDS: ZOSYN 3.375 GM/NS 3.375 GM/50 ML IVPB IV SCH ×3 (05:47→20:59)
[2016-12-15 06:06] LABS: CALCIUM 8.2 mg/dL (8.8-10.2); POTASSIUM 5.5 mmol/L (3.5-5.1)
[2016-12-15] MEDS: HUMALOG SUBQ SCH ×4 (06:11→20:59)
--- NOTE | 2016-12-15 07:26 | PROGRESS NOTE ---
DATE: 12/15/2016 SUBJECTIVE: Patient doing well. No major issues. She is more alert today. OBJECTIVE: Vital Signs: Patient currently afebrile. Her vital signs have been stable. General: No acute distress. Cardiovascular: Regular rate and rhythm. Lungs: Grossly clear. Abdomen: Soft, appropriately tender. Previous ostomy site healing well. New ostomy site doing well. ASSESSMENT/PLAN: A 81-year-old, female, status post repair of parastomal hernia repair causing bowel obstruction. 1. Postop state. At this time, patient is doing well. Her mental status is improving. She is able tolerate p.o. She can be transitioned to half-way facility/rehab facility once deemed clear by her primary care physician, Dr. Rebolledo. 2. Multiple medical comorbidities. Currently being managed by a primary care physician, Dr. Rebolledo. cc: MD Van Yates MD
[2016-12-15] MEDS: CARDIZEM 100 MG/NS 100 MG/100 ML IVPB IV SCH (07:30)
[2016-12-15] MEDS ORDERED: SODIUM CHLORIDE 0.9% INJ ONE (08:04)
[2016-12-15] MEDS ORDERED: SYNTHROID IV ONE (08:04)
[2016-12-15] MEDS: CLINIMIX E 4.25%-5% SOLUTION 1,000 ML IV SCH (09:10)
[2016-12-15] MEDS: PROTONIX IV SCH (09:11)
[2016-12-15] MEDS: LOVENOX SUBQ SCH (09:11)
[2016-12-15] MEDS: SOLU-MEDROL IV SCH (09:11)
[2016-12-15] MEDS: PROZAC PO SCH (09:12)
[2016-12-15] MEDS: NEURONTIN PO SCH ×3 (09:12→20:59)
[2016-12-15] MEDS: JANUVIA PO SCH (09:16)
[2016-12-15] MEDS: LOPRESSOR PO SCH (09:16)
[2016-12-15] MEDS: COLACE PO SCH (09:16)
[2016-12-15] MEDS: ZYLOPRIM PO SCH (09:17)
[2016-12-15] MEDS: 1/2 NS + KCL 20 MEQ 1,000 ML IV SCH (11:15)
[2016-12-15] MEDS: RYTHMOL PO SCH ×2 (14:12→20:59)
[2016-12-15] MEDS ORDERED: COUMADIN PO SCH ×2 (21:00)
[2016-12-15] MEDS: HYDROCODONE/APAP 7.5-325/15 ML PO PRN (21:00)
[2016-12-16] MEDS: DILAUDID IV PRN (00:52)
[2016-12-16] MEDS: CLINIMIX E 4.25%-5% SOLUTION 1,000 ML IV SCH (00:54)
--- NOTE | 2016-12-16 00:58 | DISCHARGE SUMMARY ---
ADMISSION DATE: 11/26/2016 DISCHARGE DATE: DISCHARGING DIAGNOSIS: Acute abdominal pain due to small-bowel obstruction and parastomal hernia. SECONDARY DIAGNOSES: 1. Altered mental status due to delirium. 2. Left-sided facial 7th nerve shingles with herpetic neuralgia. 3. Polymyalgia rheumatica with the sedimentation rate 52. 4. Paroxysmal atrial fibrillation. 5. Chronic renal failure. Baseline creatinine 1.8. 6. History of deep venous thrombosis in the left leg. 7. History of pelvic fracture in the left sacral area. 8. Diverticulosis. 9. Gout. 10. Obesity. 11. Hyperlipidemia. 12. Varicose veins. 13. Type 2 diabetes. 14. History of endometritis, resolving. CONSULTANTS: Dr. Mark Rodriguez. PROCEDURES: 1. PICC line on the right side. 2. Exploratory laparotomy, repair of the parastomal hernia and revision of colostomy. BRIEF HISTORY: Please see the H and P that was done by Dr. Casas. In brief, she is a 81-year-old white female, recently discharged from the hospital on 11/23 with left-sided shingles on the face at 7th nerve distribution. Sent home at [place] for rehab. Three days later, she presented to the ER with nausea, vomiting, abdominal pain. She was admitted in ICU with a small-bowel obstruction on CT scan. Initially, patient was treated by conservative management with NG tube with low wall suction. In the meantime, she was given perioperative supportive care with IV Zofran, IV Dilaudid, and IV fluids and parenteral nutrition. Initially, she was getting better. In the meantime, the symptoms persisted. HOSPITAL COURSE: In the ICU as follows. 1. Acute mental confusion due to delirium requiring sedatives. 2. Dr. Mark Rodriguez was consulted. He did explain the risks and the benefits. Since the patient failed to improve with conservative management, family decided to go for surgery. The patient was operated by Dr. Mark Rodriguez and Dr. Kemp with revision of colostomy. On the postoperative course as follows. 1. Patient continues to have NG tube for a while until the ileus resolved. 2. Intermittent atrial fibrillation requiring IV Cardizem drip. 3. Poor IV access and had a PICC line on the right side. 4. Polymyalgia rheumatica, elevated sedimentation rate. IV steroids. 5. DVT prophylaxis with Lovenox. 6. Altered mental status due to delirium with pain from the post herpetic neuralgia on the left 7th nerve distribution. Finally transferred from the ICU in a step-down unit. Pain is controlled with [place] and gabapentin. Slowly tolerating the diet very well. She is getting out of the bed and on 1800 calorie ADA diet. At the time of discharge, patient is stable. LABORATORIES: CBC: White cell count 9.3, hematocrit 31, platelets 435,000. Sedimentation rate 52. PT 10, INR 1.0. Sodium 135, potassium 5.5, chloride 104, BUN 40, creatinine 1.3, glucose 181. Urinalysis is clear. Chest x-ray was stable. DISCHARGE INSTRUCTIONS: 1. Follow up in the alf by Dr. Casas. 2. Melatonin 3 mg daily, Prozac 40 daily, Rythmol 150 t.i.d., Colace 100 daily, metoprolol 50 daily, allopurinol 100 two tablets daily, prednisone 10 mg daily, Neurontin 300 t.i.d., warfarin 3 mg at bedtime, Synthroid 50 mcg daily, Zofran as needed, [place] 5 mg q.6 as needed, Januvia 100 daily, Lovenox 40 subcutaneous daily, and discontinue when INR close to 2, Macrobid 100 p.o. b.i.d. for 7 days for a previous UTI. 3. We will discontinue Gaines catheter as well as PICC line. 4. Oxygen as needed. 5. Follow up as an outpatient. Discussed with the family as well as Dr. Casas. cc: Van Rebolledo MD
[2016-12-16] MEDS: HYDROCODONE/APAP 7.5-325/15 ML PO PRN ×2 (03:11→09:35)
--- NOTE | 2016-12-16 04:37 | PROGRESS NOTE ---
DATE: 12/15/2016 SUBJECTIVE: Patient's mental status improving. No pain. Eating very well. The patient is still on Cardizem drip and she is in sinus. No complaints. She was out of the bed. OBJECTIVE: Vital Signs: Stable. Blood pressure is slightly running high. HEENT: Exam within normal limits. Chest: Clear. Heart: Sounds are regular. Abdomen: Belly is soft, nontender. Good bowel sounds. Neurologic: No neurological deficits. INVESTIGATIONS: Sedimentation rate was 52, INR 1.0. SMA 7: Sodium 135, potassium 5.5, chloride 104, BUN 40, creatinine 1.3, glucose 189. ASSESSMENT AND PLAN: 1. Altered mental status, improving. 2. Post herpetic neuralgia, improving. 3. Paroxysmal atrial fibrillation, in sinus. Discontinue Cardizem. Will begin with home medicines Rythmol. 4. History of gout. On Zyloprim. 5. History of polymyalgia rheumatica. On IV steroids chane to prednisone 10 mg daily. 6. Depression. On Prozac. 7. Hypothyroidism. On Synthroid. 8. Advanced the diet. Out of the bed. Patient is medically stable to go for [facility] in the morning. Discussed with the family. LEVEL OF DOCUMENTATION: Twenty-five minutes. cc: Van Rebolledo MD MTDD
[2016-12-16] MEDS: ZOSYN 3.375 GM/NS 3.375 GM/50 ML IVPB IV SCH (05:03)
[2016-12-16] MEDS: RYTHMOL PO SCH (05:03)
[2016-12-16] MEDS: PROTONIX PO SCH ×2 (05:03→06:14)
[2016-12-16] MEDS: SYNTHROID PO SCH ×2 (05:03→06:14)
[2016-12-16] MEDS: HUMALOG SUBQ SCH ×2 (06:10→12:03)
[2016-12-16 07:33] LABS: CALCIUM 8.5 mg/dL (8.8-10.2); POTASSIUM 5.8 mmol/L (3.5-5.1)
[2016-12-16] MEDS: PROZAC PO SCH (09:34)
[2016-12-16] MEDS: NEURONTIN PO SCH (09:34)
[2016-12-16] MEDS: JANUVIA PO SCH (09:34)
[2016-12-16] MEDS: COLACE PO SCH (09:34)
[2016-12-16] MEDS: ZYLOPRIM PO SCH (09:34)
[2016-12-16] MEDS: LOVENOX SUBQ SCH (09:35)
[2016-12-16] MEDS: LOPRESSOR PO SCH (09:35)
[2016-12-16] MEDS: SOLU-MEDROL IV SCH (09:42)
[2016-12-16 11:13] VITALS: BP 155/78
== END 2016-12-16 12:33 ==
LOC: ED 04:50 → ICU 09:54 → 3S 12-06 12:08
PROVIDERS: ADMIT Internal Medicine; ATTEND Internal Medicine

== ENCOUNTER 2016-12-20 15:39 | Inpatient (IN) ==
[2016-12-20] MEDS ORDERED: MORPHINE IM ONE (16:20)
[2016-12-20] MEDS ORDERED: TORADOL IM ONE (16:20)
--- NOTE | 2016-12-20 16:27 | Diag Imaging Result Doc PS360 ---
EXAM: HEAD W/O CONTRAST HISTORY: headache TECHNIQUE: Dose reduction protocol COMPARISON: 12/12/2016 FINDINGS: No parenchymal hemorrhage. No epidural or subdural hematoma. No subarachnoid hemorrhage. No mass identified on this noncontrasted exam. No hydrocephalus. Mild microvascular ischemic changes similar to the prior study. No sinus opacification. IMPRESSION: No hemorrhage. Stable brain CT. Electronically signed by Guzman Arrington 12/20/2016 4:25 PM
[2016-12-20] MEDS ORDERED: TORADOL IV ONE (16:59)
[2016-12-20] MEDS ORDERED: MORPHINE IV ONE ×2 (17:00→17:35)
[2016-12-20] MEDS ORDERED: ZOFRAN IV ONE (17:00)
[2016-12-20] MEDS ORDERED: ZOFRAN ONE (17:02)
[2016-12-20] MEDS ORDERED: MORPHINE ONE ×2 (17:03→18:44)
--- NOTE | 2016-12-20 17:39 | PROVIDER DOCUMENTATION ---
This chart was entered by Roman Godoy Scribe, acting as scribe for Gus Whitley MD. HPI-General Adult - General Stated Complaint: INTRACTABLE PAIN Time Seen by Provider: 12/20/16 15:41 Source: patient Allergies/Adverse Reactions: Patient Allergies Allergy/AdvReac Type Severity Reaction Status Date / Time meperidine HCl * AdvReac Intermediate NAUSEA/VOMI Verified 11/26/16 05:05 [From Demerol] TING Home Medications: Home Medication List Medication Instructions Recorded Confirmed Last Taken Type Melatonin 3 mg PO QHS 02/05/13 12/20/16 12/19/16 20:00 History Fluoxetine HCl [Prozac] 40 mg PO QAM 11/12/14 12/20/16 12/20/16 08:00 History Docusate Sodium [Colace] 100 mg PO DAILY 01/06/15 12/20/16 12/20/16 08:00 History Metoprolol [Lopressor] 50 mg PO DAILY 01/06/15 12/20/16 12/20/16 08:00 History Propafenone HCl [Rythmol] 150 mg PO Q8HR 01/06/15 12/20/16 12/20/16 13:00 History Allopurinol [Zyloprim] 200 mg PO QAM 06/22/15 12/20/16 12/20/16 08:00 History Gabapentin [Neurontin] 300 mg PO TID #0 capsule 09/12/16 12/20/16 12/20/16 09: 00 Rx Levothyroxine [Synthroid] 50 microgm PO DAILY@0700 #0 tablet 09/12/16 12/20/16 12/20/16 05:00 Rx Warfarin [Coumadin] 3 mg PO QHS #0 tablet 09/12/16 12/20/16 12/19/16 20:00 Rx Acetaminophen [Tylenol] 650 mg PO Q6H PRN PRN 11/13/16 12/20/16 11/25/16 History Multivitamin [Multiple Vitamins] 1 each PO DAILY 11/13/16 12/20/16 12/20/16 08: 00 History Ondansetron HCl [Zofran] 4 mg PO Q6HR PRN 11/13/16 12/20/16 11/26/16 History Hydrocodone/Acetaminophen [[place] 1 tab PO Q4H PRN 11/26/16 12/20/16 12/20/16 16: 05 History 7.5-325 Tablet] Nitrofurantoin Monohyd/M-Cryst 100 mg PO BID 11/26/16 12/20/16 12/20/16 08:00 History [Macrobid 100 mg Capsule] Sitagliptin [Januvia] 100 mg PO QAM 11/26/16 12/20/16 12/20/16 06:00 History Enoxaparin Sodium [Lovenox] 40 mg SQ DAILY #30 syringe 12/16/16 12/20/16 08:00 Rx Prednisone 10 mg PO DAILY #39 tablet 12/16/16 12/20/16 12/20/16 08:00 Rx - History of Present Illness -Gen Adult Nature of Presenting Problems: Patient is a 81 y/o F that presents with increased pain all over. patient just had her [place] 7.5mg increased to 10mg yesterday. She had recent revision of stoma. No fever/chills, n/v/d, or chest pain. Pain is just too much to handle. No recent falls of other injury. Location of Pain/Injury: reports: generalized Pain Radiation: reports: no radiation Quality of Pain: reports: dull Severity: reports: mild, moderate Onset/Duration: reports: gradual, other (chronic) Timing: reports: still present, constant Context/Activities at Onset: reports: other (recent stoma revision) Modifying Factors: improves with: nothing Associated Symptoms: reports: back/neck pain, headaches, muscle aches. denies: diaphoresis, diarrhea, dizziness, EENT symptoms, nausea, vomiting Similar Symptoms Previously?: No Recently seen or treated by another doctor?: No Review of Systems - Adult - REVIEW OF SYSTEMS - ADULT Constitutional: denies: chills, fever Eyes: reports: no symptoms reported Ears, Nose, Mouth & Throat: reports: mouth/dental pain Cardiovascular: denies: chest pain, palpitations, syncope Respiratory: denies: shortness of breath, wheezing Gastrointestinal: denies: abdominal pain, nausea Genitourinary: reports: no symptoms reported Musculoskeletal: reports: bone pain, back pain, muscle aches, neck pain Integumentary: reports: no symptoms reported Neurological: reports: no symptoms reported Psychiatric: reports: no symptoms reported Endocrine: reports: no symptoms reported Hematologic/Lymphatic: reports: no symptoms reported Allergic/Immunologic: reports: no symptoms reported All Other Systems: Reviewed and Negative Past History - Adult - PAST MEDICAL HISTORY-ADULT Review of Records: reports: Old Records Reviewed, Nursing Assessment Review, Medications Reviewed Cardiovascular: reports: A-Fib, blood clots (DVT), CAD, CHF, HTN, hyperlipidemia Gastrointestinal: reports: diverticulosis, other (perf diverticulitis requiring colostomy) Musculoskeletal: reports: arthritis (gout; polymyalgia rheumatica), chronic pain , other (varicose veins in [place] legs) Neurological: reports: other (weakness tp bilat legs) Endocrine/Immune: reports: Diabetes, thyroid disorder, other (Vitamin B12 deficiency) - PRIOR SURGERIES/PROCEDURES Surgical/Procedure History: reports: cholecystectomy, bowel surgery (sigmoid colectomy with end colostomy), orthopedic (extremity) (left shoulder Sx), joint replacement ([place] knee replacement) - PRIOR HOSPITALIZATIONS Prior Hospitalizations: reports: none - IMMUNIZATION STATUS Childhood Immunizations: See Nurse Assessment Flu Vaccine: See Nurse Assessment - FAMILY HISTORY Family History: other (cirhosis of the liver; arthritis) - SOCIAL HISTORY Smoking: quit greater than 1 year, cigarettes Living Situation: care facility Physical Exam-General - PHYSICAL EXAM-ADULT Initial Vital Signs Reviewed: Yes - CONSTITUTIONAL General Appearance: alert, mild distress, anxious - EYES Eyes: PERRL/EOMI, pink conjunctivae - HEAD, EARS, NOSE, MOUTH & THROAT HENMT: normocephalic/atraumatic, moist mucous membranes, normal ENT inspection - NECK Neck: full range of motion, normal inspection - RESPIRATORY Respiratory: lungs clear, normal breath sounds, no respiratory distress, no accessory muscle use - CARDIOVASCULAR Cardiovascular: regular rate, rhythm, no edema - MUSCULOSKELETAL Extremity: no pedal edema, pelvis stable - SKIN Integumentary: normal color, warm/dry - NEUROLOGIC Neurologic: grossly normal, no motor/sensory deficits - PSYCHIATRIC Psych/Mental Status: oriented x 3, anxious Progress - PLAN OF CARE/RESULTS Progress/Plan/Lab Results: Vital Signs Temp Pulse Resp BP Pulse Ox 12/20/16 17:10 65 16 182/72 98 12/20/16 16:04 65 12 201/94 98 12/20/16 15:49 98.7 F 63 16 201/94 98 meperidine HCl * [From Demerol] Adverse Reaction (Intermediate, Verified 05:05) NAUSEA/VOMITING Melatonin 3 mg PO QHS 02/05/13 Fluoxetine HCl [Prozac] 40 mg PO QAM 11/12/14 Docusate Sodium [Colace] 100 mg PO DAILY 01/06/15 Metoprolol [Lopressor] 50 mg PO DAILY 01/06/15 Propafenone HCl [Rythmol] 150 mg PO Q8HR 01/06/15 Allopurinol [Zyloprim] 200 mg PO QAM 06/22/15 Gabapentin [Neurontin] 300 mg PO TID #0 capsule 09/12/16 Levothyroxine [Synthroid] 50 microgm PO DAILY@0700 #0 tablet 09/12/16 Warfarin [Coumadin] 3 mg PO QHS #0 tablet 09/12/16 Acetaminophen [Tylenol] 650 mg PO Q6H PRN PRN 11/13/16 Multivitamin [Multiple Vitamins] 1 each PO DAILY 11/13/16 Ondansetron HCl [Zofran] 4 mg PO Q6HR PRN 11/13/16 Hydrocodone/Acetaminophen [[place] 7.5-325 Tablet] 1 tab PO Q4H PRN 11/26/16 Nitrofurantoin Monohyd/M-Cryst [Macrobid 100 mg Capsule] 100 mg PO BID 11/26/16 Sitagliptin [Januvia] 100 mg PO QAM 11/26/16 Enoxaparin Sodium [Lovenox] 40 mg SQ DAILY #30 syringe 12/16/16 Prednisone 10 mg PO DAILY #39 tablet 12/16/16 Orders Category Date Time Status HEAD W/O CONTRAST [CT] Stat Exams 12/20/16 16:01 Completed Ketorolac [Toradol] Med 12/20/16 16:59 Discontinued 15 mg IV NOW ONE Ketorolac [Toradol] Med 12/20/16 16:20 Discontinued 30 mg IM NOW ONE Morphine Med 12/20/16 17:03 Discontinued 4 mg .ROUTE .STK-MED ONE Morphine Med 12/20/16 16:20 Discontinued 4 mg IM NOW ONE Morphine Med 12/20/16 17:00 Discontinued 4 mg IV NOW ONE Ondansetron [Zofran] Med 12/20/16 17:02 Discontinued 4 mg .ROUTE .STK-MED ONE Ondansetron [Zofran] Med 12/20/16 17:00 Discontinued 4 mg IV NOW ONE pt will be d/c back to [facility]. - CT/MRI 1 CT Study: Head Impression: Abnormal CT Results: no hemorrhage, microvascular changes - CONSULTS/PCP/HOSPITALIST Notification #1 *Consult/PCP/Hospitalist*: ( station superintendent for ) Time Discussed: 17:34 Reason/Comments: ok to d/c home, will see if pain isn't controlled Consult Disposition: F/U in office Departure - Departure Date of Disposition Decision: 12/20/16 Time of Disposition Decision: 17:33 DIAGNOSIS: Neuropathic pain Disposition: [facility] 03 Certified Medical Emergency: Emergent Condition: Stable Additional Freetext Instructions: All questions answered by family and made aware of treatment plan. ED Follow Up Instructions: You have been treated by a care provider in the Emergency Department. These instructions are being provided to you so you can have an understanding of how to care for yourself upon discharge. Upon discharge from the Emergency Department, you are responsible for making arrangements for follow-up care by a physician of your choice. Take all prescribed medications as directed. Return to the Emergency Department immediately for any new or worsening symptoms. You may call the Physician Referral phone number at [phone] to obtain a list of Physicians who are taking new patients. Referrals and Follow-Ups: None,PCP [Primary Care Provider] - - Critical Care Note This patient required my direct & personal management of CC.: No This chart was documented by the indicated scribe, (Roman Godoy, Scribe) and accurately reflects the services I performed and decisions made by me, Gus Whitley MD, as attested by the provider's signature.
[2016-12-20] MEDS ORDERED: MORPHINE IV PRN ×2 (18:10→19:47)
[2016-12-20] MEDS ORDERED: ZOFRAN IV PRN (19:48)
--- NOTE | 2016-12-20 20:23 | HISTORY AND PHYSICAL ---
HISTORY OF PRESENT ILLNESS: Ms. Leonardo is a patient of Dr. Rebolledo who is a resident of [facility], is a 81-year-old white female, with severe headache, especially in the left frontotemporal region. She had a history of herpes zoster with severe neurology pain in that area. Recently her pain medication was increased to [place] 10 every 6 hours, and she was also given Neurontin. The patient has been screaming and crying at the [facility] and the family brought her to the emergency room and the family said the patient was in excruciating pain and they wanted pain management at the hospital. Other details of personal, past, and family history reveal recent history of intestinal obstruction. She had a parastomal hernia, has colostomy and had a hernia which was blocked. She was managed the Dr. Rodriguez. She was admitted to Dr. Rebolledo at that time. She did well and then went to [facility]. She has a known case of obesity, maturity onset diabetes, atrial fibrillation, congestive heart failure. She indicated to me and the nurse Do Not Resuscitate. PAST MEDICAL HISTORY: She has a history of chronic renal failure, polymyalgia rheumatica, history of DVT in the past. She has varicose veins. Type 2 diabetes. SOCIAL HISTORY: She is a nonsmoker. Does not drink. ALLERGIC: Meperidine. MEDICATIONS: Melatonin 3 mg daily. Prozac 40 mg daily. Rythmol 150 mg t.i.d. Colace. Metoprolol 50 mg daily. Allopurinol 100 mg b.i.d. Prednisone 10 mg daily. Neurontin 300 mg t.i.d. Warfarin 3 mg daily. Zofran as needed. [place] as needed. REVIEW OF SYSTEMS: Other than severe pain and nausea, the pain is in the left frontotemporal area where she had severe neurologic pain in the past, she also has some intermittent abdominal pain. Review of systems is otherwise noncontributory. PHYSICAL EXAMINATION: VITAL SIGNS: Her temperature is normal, pulse 66 per minute, respiratory rate is 11, blood pressure 119/91, oxygen saturation is 99%. HEENT: Head normocephalic. Pupils PERRLA. Fundus examination not done. Neck supple. JVP normal. ENT examination unremarkable. Constantly points to the left frontotemporal area where she is having excruciating pain. Her There is no evidence of lymphadenopathy, thyroid enlargement, pedal edema, calf tenderness, anemia, cyanosis or clubbing. Pedal pulses well felt. BREASTS: Normal. CHEST: Normal inspection. LUNGS: Reveal occasional basilar rales. PMI cannot be located. HEART: Sounds normal. No murmur, gallop or rub noted. ABDOMEN: Nondistended. Reveals the colostomy in the left lower quadrant. There is some tenderness around the colostomy. No guarding or rigidity, free fluid, masses or organomegaly noted. Bowel sounds normal. RECTAL: Deferred. BRAILLE TYPIST/HIGHER FUNCTIONS: Patient in excruciating pain. The pain is somewhat relieved with Toradol and morphine injection that were given in the emergency room. The patient indicated that she did not want any kind of resuscitation. She has been through enough in her life. Cranial nerves grossly normal. Motor and sensory system examination unremarkable. Deep tendon reflexes normal. Plantars downgoing. Skull and spine examination normal for age. No cerebellar signs or signs of meningeal irritation. LOCOMOTOR: Unremarkable. SKIN: Unremarkable. CLINICAL IMPRESSION: Severe headache, possible severe neurologic pain. Plan to continue the current management on her. However, check about medications as they are done. cc: Chris Hester MD
[2016-12-20] MEDS: HUMULIN R SUBQ SCH (20:42)
[2016-12-20] MEDS: MELATONIN PO SCH (21:01)
[2016-12-20] MEDS: MACROBID PO SCH (21:01)
[2016-12-20] MEDS: RYTHMOL PO SCH (21:01)
[2016-12-20] MEDS: COUMADIN PO SCH (21:01)
[2016-12-20] MEDS: NORCO-10 PO PRN (21:01)
[2016-12-21] MEDS ORDERED: MORPHINE IV PRN (00:38)
[2016-12-21] MEDS ORDERED: NEURONTIN PO SCH ×2 (00:45→09:00)
[2016-12-21] MEDS: EXCEDRIN MIGRAINE PO PRN (00:56)
[2016-12-21] MEDS: NORCO-10 PO PRN (03:00)
[2016-12-21] MEDS: SYNTHROID PO SCH ×2 (05:41→07:01)
[2016-12-21] MEDS: RYTHMOL PO SCH ×3 (05:41→23:13)
[2016-12-21 05:45] LABS: INR 1.14; PROTIME 12.1 Seconds (9.2-11.7)
[2016-12-21 06:22] LABS: BASO% 0.2 % (0.0-0.8); EOS# 0.21 X1000 (0.0-0.7); HEMATOCRIT 37.6 % (37.0-47.0); HEMOGLOBIN 11.6 g/dL (12.0-16.0); IMM GRAN# 0.21 X1000 (0.0-0.04); LYMPH% 25.2 % (20.5-51.1); MCHC 30.9 g/dL (33-37); MCV 107.1 FL (81-99); MONO# 0.74 X1000 (0.11-0.59); MONO% 6.9 % (1.7-9.3); MPV 10.2 FL (7.4-10.4); NEUT% 63.7 % (42.2-75.2); PLT 347 X1000 (130-400); RBC 3.51 XMIL (4.2-5.4)
[2016-12-21 06:30] LABS: ALBUMIN 3.2 g/dL (3.5-5.0); CALCIUM 8.3 mg/dL (8.8-10.2); TOTAL BILIRUBIN 0.46 mg/dL (0.20-1.00); TOTAL PROTEIN 5.6 g/dL (6.3-8.3)
[2016-12-21 06:54] LABS: MANUAL DIFF NEEDED? NO
[2016-12-21] MEDS: HUMULIN R SUBQ SCH ×4 (07:00→21:13)
[2016-12-21] MEDS: ZYLOPRIM PO SCH (11:00)
[2016-12-21] MEDS: PROZAC PO SCH (11:00)
[2016-12-21] MEDS: COLACE PO SCH (11:00)
[2016-12-21] MEDS: MACROBID PO SCH ×2 (11:00→20:17)
[2016-12-21] MEDS: THERA M PLUS PO SCH (11:00)
[2016-12-21] MEDS: JANUVIA PO SCH (11:00)
[2016-12-21] MEDS: LOPRESSOR PO SCH ×2 (11:00→11:04)
[2016-12-21] MEDS: PREDNISONE PO SCH (11:01)
[2016-12-21] MEDS: LOVENOX SUBQ SCH (11:01)
[2016-12-21] MEDS: NEURONTIN PO SCH ×3 (11:01→20:17)
[2016-12-21] MEDS: TYLENOL PO PRN (15:15)
[2016-12-21] MEDS ORDERED: CALMOSEPTINE OINTMENT TOP PRN (19:28)
[2016-12-21] MEDS: COUMADIN PO SCH (20:18)
[2016-12-21] MEDS: MELATONIN PO SCH (20:19)
--- NOTE | 2016-12-21 20:47 | PROGRESS NOTE ---
DATE: 12/21/2016 SUBJECTIVE: The patient recently discharged from the hospital for bowel obstruction. Residing in [facility]. 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 I have several phone calls about herpetic neurology on the left face. She was given increased gabapentin, Zostrix cream and [place] 10. Patient failed to control the pain. Transferred to the hospital. Patient was admitted Dr. Hester for pain control. REVIEW OF SYSTEMS: Other than intermittent pain, nothing acute. OBJECTIVE: Vital signs: Stable. Temperature 98, pulse 78, blood pressure 110/ 68, on 2 L, 98%. Input and output -225. HEENT: Atraumatic, normocephalic. Pupils equal, reactive to light. Left side of the face, no rash noted. Neck: Supple. Chest: Clear. Heart: Sounds are regular. Abdomen: Belly is soft, nontender. Good bowel sounds. Colostomy is working. Extremities: No peripheral edema, cyanosis. No obvious neurological deficits. INVESTIGATIONS: CBC: White cell count 10, hematocrit 37, platelets 347,000. PT 12, INR 1.1. SMA7: Sodium 143, potassium 4, BUN 21, creatinine 1.8, glucose 154. Calcium 8.3. Total protein 5.6. ASSESSMENT AND PLAN: 1. 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 Increase the gabapentin to 600 t.i.d. and [place]. 2. Deep venous thrombosis, paroxysmal atrial fibrillation, on warfarin. Continue on Lovenox. 3. Polymyalgia rheumatica. Prednisone 10 mg daily. 4. Hypothyroidism, on Synthroid 50 daily. 5. Paroxysmal atrial fibrillation , on metoprolol and Rythmol. Currently in sinus. 6. Gout, on Zyloprim 200 daily. 7. Recent parastomal hernia repair, stable. 8. Living will, Do Not Resuscitate. Discussed with the patient family it takes awhile for control of the pain. We will refer to the social media director. LEVEL OF DOCUMENTATION: 25 minutes. cc: Van Rebolledo MD MTDD
[2016-12-22] MEDS: SYNTHROID PO SCH ×2 (05:47→06:12)
[2016-12-22] MEDS: RYTHMOL PO SCH ×3 (05:47→20:29)
[2016-12-22] MEDS: HUMULIN R SUBQ SCH ×4 (06:11→20:29)
[2016-12-22] MEDS ORDERED: NS 1,000 ML IV ONE (09:42)
[2016-12-22] MEDS: LOPRESSOR PO SCH (09:52)
[2016-12-22] MEDS: COLACE PO SCH (09:52)
[2016-12-22] MEDS: PROZAC PO SCH (09:52)
[2016-12-22] MEDS: PREDNISONE PO SCH (09:52)
[2016-12-22] MEDS: MACROBID PO SCH ×2 (09:52→20:28)
[2016-12-22] MEDS: THERA M PLUS PO SCH (09:52)
[2016-12-22] MEDS: NEURONTIN PO SCH ×3 (09:52→20:28)
[2016-12-22] MEDS: JANUVIA PO SCH (09:52)
[2016-12-22] MEDS: ZYLOPRIM PO SCH (09:52)
[2016-12-22] MEDS: LOVENOX SUBQ SCH (09:52)
[2016-12-22] MEDS: NORCO-10 PO PRN ×3 (10:10→23:13)
[2016-12-22] MEDS: TYLENOL PO PRN ×2 (14:08→20:28)
[2016-12-22] MEDS: EXCEDRIN MIGRAINE PO PRN (18:30)
--- NOTE | 2016-12-22 18:56 | PROGRESS NOTE ---
DATE: 12/22/2016 SUBJECTIVE: Patient complains of intermittent herpetic neuralgia. REVIEW OF SYSTEMS: None reported other than the pain. PHYSICAL EXAMINATION: Vital signs: Afebrile. Vitals are stable. Pulse is 96 on room air. HEENT: Within normal limits. Neck: Supple. No lymphadenopathy. Chest: Clear to auscultation. Heart: Sounds are regular. Abdomen: Belly is soft, nontender. Good bowel sounds. Extremities: No peripheral edema, cyanosis. Neurologic: No obvious neurological deficits. ASSESSMENT AND PLAN: 1. Herpetic neuralgia on the left side of the face. Continue on gabapentin and [place] and Zostrix cream. 2. Not eating well. IV fluids 50 an hour for 1 L. 3. The rest of the problems are stable. Discussed with the family and social media specialist. Will transfer her back to rehab in the morning. LEVEL OF DOCUMENTATION: 15 minutes. cc: Van Rebolledo MD
[2016-12-22] MEDS: COUMADIN PO SCH (20:28)
[2016-12-22] MEDS: MELATONIN PO SCH (20:28)
[2016-12-23] MEDS: SYNTHROID PO SCH (06:09)
[2016-12-23] MEDS: RYTHMOL PO SCH (06:09)
[2016-12-23] MEDS: HUMULIN R SUBQ SCH ×2 (06:48→11:22)
[2016-12-23 08:09] VITALS: BP 122/45
[2016-12-23] MEDS: ZYLOPRIM PO SCH (08:29)
[2016-12-23] MEDS: LOPRESSOR PO SCH (08:29)
[2016-12-23] MEDS: JANUVIA PO SCH (08:29)
[2016-12-23] MEDS: PROZAC PO SCH (08:30)
[2016-12-23] MEDS: COLACE PO SCH (08:30)
[2016-12-23] MEDS: LOVENOX SUBQ SCH (08:30)
[2016-12-23] MEDS: NEURONTIN PO SCH (08:30)
[2016-12-23] MEDS: PREDNISONE PO SCH (08:30)
[2016-12-23] MEDS: MACROBID PO SCH (08:30)
[2016-12-23] MEDS: THERA M PLUS PO SCH (08:30)
--- NOTE | 2016-12-23 09:04 | DISCHARGE SUMMARY ---
ADMISSION DATE: 12/22/2016 DISCHARGE DATE: OBSERVATION ADMISSION: DISCHARGING DIAGNOSIS: Altered mental status due to post herpetic neurology over the left side of the face from previous shingles. SECONDARY DIAGNOSES: 1. Polymyalgia rheumatica, with the sedimentation rate is 50. 2. Paroxysmal atrial fibrillation. 3. Chronic renal failure. Baseline creatinine 1.8. 4. History of deep venous thrombosis in the left leg. 5. History of pelvic fracture in the sacral area. 6. Diverticulosis. 7. Gout. 8. Obesity. 9. Hyperlipidemia. 10. Varicose veins. 11. Type 2 diabetes. 12. History of endometriotic, resolving. 13. History of parastomal hernia repair. BRIEF HISTORY: Please see the H and P that was done by Dr. Hester. In brief, she is a 81-year-old white female, recently discharged from the hospital, who came back with intractable headache, pain from the neuralgia, associated with mental status changes. HOSPITAL COURSE: The patient was given morphine for pain control. I did explain to the patient's family members it lasts about 6 months. We did increased the Neurontin 600 t.i.d., along with [place] 10 q.6 and Zostrix cream as needed. She was given IV fluids. She looks stable and discharged back to rehab at [facility] and Dr. Hester is going to monitor. LABORATORIES: As follows: CBC: White cell count 10, hematocrit 37, platelets 347,000. PT 12, INR 1.1. SMA 7: Sodium 143, potassium 4, chloride 107. BUN 21, creatinine 1.8, glucose 149. LFTs were normal. DISCHARGE INSTRUCTIONS: 1. Melatonin 3 mg at bedtime. 2. Prozac 40 daily. 3. Rythmol 150 t.i.d. 4. Colace 100 daily. 5. Metoprolol 50 daily. 6. Zyloprim 200 daily. 7. Neurontin 600 t.i.d. 8. Warfarin 3 mg at bedtime. 9. Synthroid 50 mcg daily. 10. Zofran as needed for pain. 11. Tylenol as needed. 12. [place] 10 q.4 as needed. 13. Macrobid 100 b.i.d. for 7 days. 14. Januvia 100 daily. 15. Lovenox 40 mg subcutaneous daily until the INR reaches 2. 16. Prednisone [address] Hester is going to maintain and monitor the Coumadin, as well as other problems. cc: Van Rebolledo MD
[2016-12-23] MEDS: EXCEDRIN MIGRAINE PO PRN (10:04)
[2016-12-23] MEDS: NORCO-10 PO PRN (11:03)
== END 2016-12-23 12:11 ==
LOC: 4N 15:39 → ED 15:39
PROVIDERS: ADMIT Internal Medicine; ATTEND Internal Medicine

== ENCOUNTER 2016-12-25 09:31 | Inpatient (IN) ==
--- NOTE | 2016-12-25 10:19 | Diag Imaging Result Doc PS360 ---
EXAM: HEAD W/O CONTRAST - 12/25/2016 HISTORY: AMS TECHNIQUE: Dose reduction protocol COMPARISON: 12/20/2016 FINDINGS: There are mild chronic microvascular ischemic changes similar to the prior exam. There is no evidence of recent infarct, although acute infarcts may not be immediately visible. There is no evidence of hemorrhage, mass effect, midline shift, or hydrocephalus. IMPRESSION: Chronic microvascular ischemic changes. No visible acute process. No hemorrhage or mass effect. Electronically signed by Nicola Antony 12/25/2016 10:16 AM
[2016-12-25 10:26] LABS: URINE SOURCE CATH
[2016-12-25 10:29] LABS: BASO% 0.4 % (0.0-0.8); EOS# 0.29 X1000 (0.0-0.7); EOS% 1.6 % (0.0-10.0); HEMATOCRIT 35.9 % (37.0-47.0); IMM GRAN# 0.08 X1000 (0.0-0.04); IMM GRAN% 0.4 % (0.0-0.5); LYMPH% 7.6 % (20.5-51.1); MANUAL DIFF NEEDED? NO; MCH 33.3 PG (27-31); MCHC 30.6 g/dL (33-37); MCV 108.8 FL (81-99); MONO# 1.15 X1000 (0.11-0.59); MONO% 6.3 % (1.7-9.3); MPV 10.9 FL (7.4-10.4); NEUT% 83.7 % (42.2-75.2); PLT 260 X1000 (130-400)
[2016-12-25 10:30] LABS: BILIRUBIN URINE NEGATIVE (NEGATIVE); BLOOD URINE MODERATE (NEGATIVE); COLOR YELLOW; GLUCOSE URINE NEGATIVE (NEGATIVE); LEUKOCYTES URINE LARGE (NEGATIVE); NITRITE URINE NEGATIVE (NEGATIVE); PH URINE 5.5; PROTEIN URINE 100 mg/dL (NEGATIVE); SP GRAVITY URINE 1.027; TURBIDITY URINE TURBID (CLEAR); UROBILINOGEN URINE 2 mg/dL (NORMAL)
[2016-12-25] MEDS ORDERED: NS 1,000 ML IV ONE (10:31)
[2016-12-25] MEDS ORDERED: ROCEPHIN 1 GM/NS 1 GM/50 ML IVPB IV ONE (10:31)
[2016-12-25 10:32] LABS: UR EPITHELIAL CELLS <10 /HPF (<10); URINE BACTERIA NEGATIVE /HPF; URINE CULTURE NEEDED? YES; URINE MICRO REVIEW NEEDED? YES; URINE RBC TNTC /HPF (<10); URINE WBC TNTC /HPF (<10)
[2016-12-25 10:48] LABS: URINE CASTS NONE SEEN
[2016-12-25 10:50] LABS: ALBUMIN 3.3 g/dL (3.5-5.0); CALCIUM 8.7 mg/dL (8.8-10.2); POTASSIUM 4.8 mmol/L (3.5-5.1); TOTAL BILIRUBIN 0.33 mg/dL (0.20-1.00); TOTAL PROTEIN 5.9 g/dL (6.3-8.3)
--- NOTE | 2016-12-25 11:04 | Diag Imaging Result Doc PS360 ---
EXAM: CHEST-PORTABLE - 12/25/2016 HISTORY: AMS TECHNIQUE: Portable chest 10:46 AM COMPARISON: 12/11/2016 FINDINGS: Heart size appears mildly enlarged. Inspiration is mildly shallow. 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 The lungs appear clear of acute changes. There is no pleural effusion or pneumothorax identified. There are degenerative changes noted at the bilateral shoulders. IMPRESSION: Mild cardiomegaly. Mildly shallow inspiration. No other evidence of acute disease. Electronically signed by Nicola Antony 12/25/2016 11:02 AM
--- NOTE | 2016-12-25 11:31 | ED EKG INTERP ---
This chart was entered by Julianna Lucas Scribe, acting as scribe for Neda Mercado MD. EKG Interpretation - EKG Time of EKG reading by physician:: 09:36 EKG Read and Signed by:: Neda Mercado EKG Interpretation (*Must complete 3 of following elements*): Abnormal Rate: 90 Rhythm: sinus rhythm with 1st degree AV block Comments: ST & T wave abnormality, consider inferolateral ischemia This chart was documented by the indicated scribe, (Julianna Lucas Scribe) and accurately reflects the services I performed and decisions made by me, Neda Mercado MD, as attested by the provider's signature.
--- NOTE | 2016-12-25 11:43 | PROVIDER DOCUMENTATION ---
This chart was entered by Julianna Lucas Scribe, acting as scribe for Neda Mercado MD. HPI-Neurological Disorder - General Chief Complaint: Altered Mental Status Stated Complaint: ams Time Seen by Provider: 12/25/16 10:51 Source: family Allergies/Adverse Reactions: Patient Allergies Allergy/AdvReac Type Severity Reaction Status Date / Time meperidine HCl * AdvReac Intermediate NAUSEA/VOMI Verified 11/26/16 05:05 [From Demerol] TING - History of Present Illness-Neuro Nature of Presenting Problem: Pt is 81 y/o F presents to the ED via EMS for AMS. EMS states Pt was found by prison staff unresponsive. Pt's family states last seen normal was last night. EMS states gave narcan in route. Headache Location: denies: frontal, temporal, occipital, parietal, global Severity: reports: moderate Onset/Duration: reports: this morning Timing: reports: improving Context: reports: found unresponsive by prison staff Character of Altered Mental Status: reports: unresponsive Any recent trauma/injury?: reports: none New weakness or altered sensation location:: reports: general (diffuse) Cognitive Baseline: alert, oriented x3 Associated Symptoms: reports: weakness, other (AMS). denies: short of breath, headache, decreased ability to walk or stand, fainting, dizziness, confusion, chest pain, neck/back pain, fatigue, fever/chills, insomnia, loss of consciousness, muscle spasms, nausea, numbness in legs/feet, paresthesia, diaphoretic, ringing in ears, seizures, sleepy, slurred speech, tingling in legs /feet, trouble walking, vomiting, vision changes Similar Symptoms Previously?: Yes Recently seen or treated by another doctor?: No Review of Systems - Adult - REVIEW OF SYSTEMS - ADULT Constitutional: reports: no symptoms reported Eyes: reports: no symptoms reported Ears, Nose, Mouth & Throat: reports: no symptoms reported Cardiovascular: reports: no symptoms reported Respiratory: reports: no symptoms reported Gastrointestinal: reports: no symptoms reported Genitourinary: reports: no symptoms reported Musculoskeletal: reports: muscle weakness. denies: bone pain, joint pain, neck pain Integumentary: reports: no symptoms reported Neurological: reports: other (AMS). denies: dizziness/vertigo, headache/ migraines, syncope Psychiatric: reports: no symptoms reported Endocrine: reports: no symptoms reported Hematologic/Lymphatic: reports: no symptoms reported Allergic/Immunologic: reports: no symptoms reported All Other Systems: Reviewed and Negative Past History - Adult - PAST MEDICAL HISTORY-ADULT Review of Records: reports: Nursing Assessment Review, Medications Reviewed, Social history reviewed & non-contributory. Major Childhood Illnesses: reports: denies history Cardiovascular: reports: A-Fib, blood clots (DVT), CAD, CHF, HTN, hyperlipidemia Respiratory: reports: denies history Gastrointestinal: reports: diverticulosis, other (perf diverticulitis requiring colostomy) Obstetrical/Gynecological: reports: denies history Genitourinary: reports: kidney disease Musculoskeletal: reports: arthritis (gout; polymyalgia rheumatica), chronic pain , other (varicose veins in kylee legs) Neurological: reports: dementia, other (weakness tp bilat legs) Psychiatric: reports: anxiety Endocrine/Immune: reports: Diabetes, thyroid disorder, other (Vitamin B12 deficiency) Other Conditions: reports: denies history - PRIOR SURGERIES/PROCEDURES Surgical/Procedure History: reports: cholecystectomy, bowel surgery (sigmoid colectomy with end colostomy), orthopedic (extremity) (left shoulder Sx), joint replacement (Kylee knee replacement) - PRIOR HOSPITALIZATIONS Prior Hospitalizations: reports: none - IMMUNIZATION STATUS Childhood Immunizations: See Nurse Assessment Flu Vaccine: See Nurse Assessment - FAMILY HISTORY Family History: other (cirhosis of the liver; arthritis) - SOCIAL HISTORY Smoking: denies Substance Use: denies Living Situation: care facility Physical Exam- Neurological - Physical Exam-Neuro Initial Vital Signs Reviewed: Yes General Appearance: appears well, no apparent distress, lethargic Eye Exam: bilateral eye: normal inspection, PERRL, EOMI HENMT: normal ENT inspection Head Injury: no evidence of injury Neck: normal inspection Respiratory: chest non-tender, lungs clear, normal breath sounds Cardiovascular: normal peripheral pulses, regular rate, rhythm Abdominal Exam: normal bowel sounds, non tender, soft Lymphatic: no adenopathy 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 Neurologic: grossly normal Integumentary: normal color, normal turgor, warm/dry Psych/Mental Status: other (lethargic) Progress - PLAN OF CARE/RESULTS Progress/Plan/Lab Results: Vital Signs - 8 hr 12/25/16 09:37 12/25/16 10:53 Temperature 98.3 F Pulse Rate 90 83 Respiratory Rate 18 19 Blood Pressure 137/53 119/62 O2 Sat by Pulse Oximetry 97 100 Laboratory Results - last 24 hr 12/25/16 12/25/16 12/25/16 09:53 09:53 09:53 WBC 18.34 H RBC 3.30 L Hgb 11.0 L Hct 35.9 L MCV 108.8 H MCH 33.3 H MCHC 30.6 L RDW Std Deviation 16.5 H Plt Count 260 MPV 10.9 H Immature Gran % (Auto) 0.4 Neut % (Auto) 83.7 H Lymph % (Auto) 7.6 L Leslie % (Auto) 6.3 Eos % (Auto) 1.6 Baso % (Auto) 0.4 Immature Gran # (Auto) 0.08 H Neut # (Auto) 15.35 H Lymph # (Auto) 1.40 Leslie # (Auto) 1.15 H Eos # (Auto) 0.29 Baso # (Auto) 0.07 Sodium 139 Potassium 4.8 Chloride 103 Carbon Dioxide 22 L Anion Gap 14 BUN 31 H Creatinine 2.5 H Estimated GFR/1.73 m2 19 BUN/Creatinine Ratio 12 Glucose 103 Calculated Osmolality 284 Calcium 8.7 L Total Bilirubin 0.33 AST 19 ALT 15 Alkaline Phosphatase 87 Creatine Kinase 15 L Troponin T [id number] Pept Total Protein 5.9 L Albumin 3.3 L Globulin 2.6 Albumin/Globulin Ratio 1.3 Urine Source Urine Color Urine Turbidity Urine pH Ur Specific Hindman Urine Protein Ur Glucose (Stick) Ur Ketones (Stick) Urine Blood Urine Nitrite Urine Bilirubin Urobilinogen Dipstick Urine Leukocytes Urine WBC (Auto) Urine RBC (Auto) U Epithel Cells (Auto) Urine Bacteria (Auto) Urine Crystals Small Round Cells Urine Casts Urine Yeast-like Cells 12/25/16 12/25/16 12/25/16 09:53 09:53 10:10 WBC RBC Hgb Hct MCV MCH MCHC RDW Std Deviation Plt Count MPV Immature Gran % (Auto) Neut % (Auto) Lymph % (Auto) Leslie % (Auto) Eos % (Auto) Baso % (Auto) Immature Gran # (Auto) Neut # (Auto) Lymph # (Auto) Leslie # (Auto) Eos # (Auto) Baso # (Auto) Sodium Potassium Chloride Carbon Dioxide Anion Gap BUN Creatinine Estimated GFR/1.73 m2 BUN/Creatinine Ratio Glucose Calculated Osmolality Calcium Total Bilirubin AST ALT Alkaline Phosphatase Creatine Kinase Troponin T 0.041 [id number] Pept 2482 H Total Protein Albumin Globulin Albumin/Globulin Ratio Urine Source CATH Urine Color YELLOW Urine Turbidity TURBID Urine pH 5.5 Ur Specific Hindman 1.027 Urine Protein 100 A Ur Glucose (Stick) NEGATIVE Ur Ketones (Stick) NEGATIVE Urine Blood MODERATE A Urine Nitrite NEGATIVE Urine Bilirubin NEGATIVE Urobilinogen Dipstick 2 A Urine Leukocytes LARGE A Urine WBC (Auto) TNTC A Urine RBC (Auto) TNTC A U Epithel Cells (Auto) <10 Urine Bacteria (Auto) NEGATIVE Urine Crystals Not Reportable Small Round Cells Not Reportable Urine Casts NONE SEEN Urine Yeast-like Cells PRESENT Orders Category Date Time Status CHEST-PORTABLE [RAD] Stat Exams 12/25/16 10:31 Completed HEAD W/O CONTRAST [CT] Stat Exams 12/25/16 09:43 Completed BLOOD CULTURE [BLDCUL] Stat Lab 12/25/16 10:54 Results CBC WITH ELECTRONIC DIFF [HEME] Stat Lab 12/25/16 09:53 Completed CK PROFILE [SP CHEM] Stat Lab 12/25/16 09:53 Completed CMP [COMPREHENSIVE METABOLIC PANEL] [CHEM] Stat Lab 12/25/16 09:53 Completed PRO B-NATRIURETIC PEPTIDE Stat Lab 12/25/16 09:53 Completed TROPONIN T Stat Lab 12/25/16 09:53 Completed URINALYSIS W/POSS RFLX CULT-1 [URINALYSIS] Stat Lab 12/25/16 10:10 Completed URINE CULTURE [RM] Routine Lab 12/25/16 10:49 Received URINE MANUAL MICROSCOPIC [URINALYSIS] Stat Lab 12/25/16 10:10 Completed 0.9% Sodium Chloride Inj [Ns] 1,000 ml Med 12/25/16 10:31 Discontinued IV 999 mls/hr CefTRIAXONE 1 GM/NS [Rocephin 1 gm/Ns] Med 12/25/16 10:31 Discontinued 1 gm in 50 ml IV NOW EKG [EKG] Stat Ther 12/25/16 09:44 Ordered Result Diagrams: 12/25/16 09:53 12/25/16 09:53 - REASSESSMENT Reassessment #1 Time Reassessed: 11:31 (Dr. Mercado at bedside ) Status: other (Pt's family at bedside states Pt was admitted 2 days ago for severe headache.) - XRAY 1 XRAY Study: Chest Impression: Abnormal (no other evidence of acute disease) XRAY Interpretation: mild cardiomegaly. mildly shallow inspiration. - CT/MRI 1 CT Study: Head Impression: Abnormal (no visible acute processs. no hemorrhage or mass effect.) CT Results: chronic microvascular ischemic changes. - CONSULTS/PCP/HOSPITALIST Notification #1 *Consult/PCP/Hospitalist*: Dr. Mays Time Discussed: 11:41 Reason/Comments: Admit to [facility] Consult Disposition: Will see in ED, Admit Departure - Departure Date of Disposition Decision: 12/25/16 Time of Disposition Decision: 11:42 DIAGNOSIS: UTI (urinary tract infection), Hypotension, Altered mental status Disposition: ADMITTED INPATIENT 09 Certified Medical Emergency: Emergent Condition: Stable Referrals and Follow-Ups: Pardeep Rebolledo MD [Primary Care Provider] - - Critical Care Note This patient required my direct & personal management of CC.: Yes Total Time (mins): 45 Critical Care Statement: This patient required my direct personal management to treat or rule out processes, the absence of which, could potentiallly result in sudden, clinically significant life or limb threatening deterioration. This chart was documented by the indicated scribe, (Julianna Lucas, Diego) and accurately reflects the services I performed and decisions made by me, Neda Mercado MD, as attested by the provider's signature.
[2016-12-25] MEDS ORDERED: MORPHINE IV ONE (12:20)
[2016-12-25] MEDS ORDERED: NS 1,000 ML IV SCH (12:20)
[2016-12-25 12:38] LABS: INR 1.59; PROTIME 17.2 Seconds (9.2-11.7)
[2016-12-25] MEDS ORDERED: NS 1,000 ML ONE (13:22)
[2016-12-25] MEDS ORDERED: NUT TX GLUC INTOLER LAC FR SOY PO SCH (15:05)
[2016-12-25] MEDS ORDERED: NORCO-7.5 PO PRN (15:05)
[2016-12-25] MEDS ORDERED: ZOFRAN PO PRN (15:05)
--- NOTE | 2016-12-25 15:35 | HISTORY AND PHYSICAL ---
HISTORY OF PRESENT ILLNESS: The patient states that she is hurting in the side of her head. Does not want to talk about much else at this time. She has apparently been screaming out in pain. 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 She hurts on the left side of her head where she did have the shingles. They were giving her [place] and morphine. Apparently became unresponsive with altered mental status. There was a report that she was hypotensive possibly at the long term with blood pressure in the 80s systolically. Here in the emergency room, blood pressure was normal. Patient has had a history of atrial fibrillation, DVT, CAD, CHF, hypertension, hyperlipidemia. SURGERY: She had surgery about 2 weeks ago on her abdomen for bowel obstruction and has a colostomy now. PAST MEDICAL HISTORY: Cholecystectomy, left shoulder surgery, bilateral knee replacements, a sigmoid colectomy with end-colostomy. FAMILY HISTORY: There has been cirrhosis and arthritis. SOCIAL HISTORY: Does not use alcohol or tobacco. PHYSICAL EXAMINATION: GENERAL: She is an overweight female who is becoming a little bit more lucid after being given Narcan in the emergency room. Does not give a lot of details. There are several family members around her. HEENT: She is normocephalic. EOMS intact. Throat clear. LUNGS: Clear to auscultation and percussion without rhonchi, rales, or wheezes. NECK: Supple. HEART: Regular rate and rhythm without murmurs, gallops, or friction rubs with a rate of 90. ABDOMEN: Soft. Active bowel sounds. She has a colostomy. RECTAL: Pelvic, rectal and breast exams are deferred at this point. NEUROLOGICAL: Patient is disoriented. She is just coming out from under some morphine, but that is probably not the only thing that has caused her altered mental status. DIAGNOSTICS: Urinalysis shows WBCs, too numerous to count, RBCs too numerous to count. Consistent with a urinary tract infection. The proBNP is up at 2492. Chest x-ray does not show any infiltrates, but shows mild cardiomegaly. ADMITTING DIAGNOSIS: 1. Altered mental status, possibly from narcotics and from urinary tract infection. 2. Chronic pain syndrome and headache. 3. Urinary tract infection. 4. Hypotension, now resolved. PLAN: We will admit. Start on IV antibiotics. We will culture and try to control pain as best we can. Family is requesting neurological consult which at earliest would be tomorrow. 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 cc: MD Van Ray Jr, MD
[2016-12-25] MEDS: NEURONTIN PO SCH ×2 (15:58→16:43)
[2016-12-25] MEDS: ZOSTRIX TOP SCH ×2 (16:43→21:21)
[2016-12-25] MEDS: HUMULIN R SUBQ SCH ×2 (16:44→21:22)
[2016-12-25] MEDS: RYTHMOL PO SCH (16:46)
[2016-12-25] MEDS: NORCO-10 PO PRN (19:41)
[2016-12-25] MEDS ORDERED: NON-FORMULARY MED (Protein Hydrolysate,Milk [Liquid Protein Fortifier] 30 ML) PO SCH (21:00)
[2016-12-25] MEDS: MONISTAT-DERM 2% CREAM TOP SCH (21:21)
[2016-12-25] MEDS: MACROBID PO SCH (21:21)
[2016-12-25] MEDS: COUMADIN PO SCH (21:21)
[2016-12-25] MEDS: ZINC SULFATE PO SCH (21:21)
[2016-12-25] MEDS: VITAMIN C PO SCH (21:21)
[2016-12-25] MEDS: MELATONIN PO SCH (21:22)
[2016-12-25] MEDS: ROCEPHIN 1 GM/NS 1 GM/50 ML IVPB IV SCH (21:22)
[2016-12-26] MEDS: ZOSTRIX TOP SCH ×5 (04:12→22:03)
[2016-12-26] MEDS: NORCO-10 PO PRN ×4 (04:12→23:45)
--- NOTE | 2016-12-26 06:08 | EKG Report ---
Test Performed on : 12/25/2016 09:36:09 AM Test Reason : AMS Blood Pressure : / mmHG Vent. Rate : 090 BPM Atrial Rate : 090 BPM P-R Int : 224 ms QRS Dur : 098 ms QT Int : 338 ms P-R-T Axes : 092 037 173 degrees QTc Int : 413 ms Sinus rhythm. with 1st degree AV block. ST \T\ T wave abnormality, consider inferolateral ischemia Abnormal ECG When compared with ECG of 12-DEC-2016 06:43, Sinus rhythm. has replaced Atrial fibrillation. Vent. rate has decreased BY 70 BPM QRS duration has increased ST no longer depressed in Inferior leads ST no longer depressed in Anterior leads T wave inversion no longer evident in Anterior leads Unconfirmed Result
[2016-12-26] MEDS: HUMULIN R SUBQ SCH ×4 (06:09→21:54)
[2016-12-26] MEDS: JANUVIA PO SCH (08:30)
[2016-12-26] MEDS: COLACE PO SCH (08:30)
[2016-12-26] MEDS: ZINC SULFATE PO SCH ×2 (08:30→21:53)
[2016-12-26] MEDS: NEURONTIN PO SCH ×3 (08:30→17:01)
[2016-12-26] MEDS: LOPRESSOR PO SCH (08:30)
[2016-12-26] MEDS: THERA M PLUS PO SCH (08:30)
[2016-12-26] MEDS: ZYLOPRIM PO SCH (08:30)
[2016-12-26] MEDS: VITAMIN C PO SCH ×2 (08:30→21:54)
[2016-12-26] MEDS: SYNTHROID PO SCH (08:30)
[2016-12-26] MEDS: RYTHMOL PO SCH ×3 (08:30→17:01)
[2016-12-26] MEDS: LOVENOX SUBQ SCH (08:31)
[2016-12-26] MEDS: MACROBID PO SCH ×2 (08:31→21:54)
[2016-12-26] MEDS: MONISTAT-DERM 2% CREAM TOP SCH ×2 (08:31→21:54)
[2016-12-26] MEDS: ROCEPHIN 1 GM/NS 1 GM/50 ML IVPB IV SCH ×2 (08:31→21:53)
[2016-12-26] MEDS ORDERED: PREDNISONE PO SCH ×2 (09:00)
[2016-12-26] MEDS ORDERED: PROZAC PO SCH (09:00)
[2016-12-26 09:44] LABS: INR 1.41; PROTIME 15.1 Seconds (9.2-11.7)
[2016-12-26] MEDS: CLINIMIX E 4.25%-5% SOLUTION 1,000 ML IV SCH (10:45)
[2016-12-26] MEDS ORDERED: TEGRETOL PO ONE (16:40)
--- NOTE | 2016-12-26 19:30 | PROGRESS NOTE ---
DATE: 12/26/2016 SUBJECTIVE: Patient was readmitted for intractable left-sided shingles pain around the 7th nerve distribution. No rashes noted. Apparently patient was discharged on Monday from [facility] and over the weekend she was given too much pain medicines, unconscious and given Narcan on the way out to the hospital. Patient was readmitted by Dr. Mays. Family was there at the bedside. Interval history was reviewed. EXAMINATION: Vital signs: She is afebrile. Vitals are stable. I's and O's are - 260 mL. HEENT Exam: Facial nerve is intact. No rash noted. Patient is eating sandwich, awake, oriented. Neck: Supple. Chest: Clear. Heart: Sounds are regular. Belly: Is soft, nontender. Good bowel sounds. No masses palpable. INVESTIGATIONS: CBC: White cell count 18, hematocrit 35, platelets 260,000. PT 15, INR 1.4. SMA 7. Creatinine is 2.5. ProBNP slightly high. Urinalysis positive for infection. Urine cultures, blood cultures are pending. Chest x-ray. Mild cardiomegaly stable. CT head. Chronic microvascular ischemic changes. ASSESSMENT AND PLAN: 1. 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 Explained the patient, family about the natural course. CT head is negative. Continue on gabapentin and hydrocodone. We may change to Cymbalta. 2. Depression. Discontinue Prozac, change to Cymbalta. 3. Hypothyroidism on Synthroid. 4. Deep vein thrombosis. INR is subtherapeutic. Continue on Coumadin and Lovenox. 5. Polymyalgia rheumatica on prednisone 10 mg daily. 6. Dehydration. IV Clinimix. 7. Family wants 2nd opinion with neurologist Dr. Evans. 8. Living will is Do Not Resuscitate. LEVEL OF DOCUMENTATION: 25 minutes. cc: Van Rebolledo MD
[2016-12-26] MEDS: MELATONIN PO SCH (21:54)
[2016-12-26] MEDS: COUMADIN PO SCH (21:54)
[2016-12-26] MEDS: TEGRETOL PO SCH (21:58)
[2016-12-27] MEDS: ZOSTRIX TOP SCH (04:10)
[2016-12-27] MEDS: CLINIMIX E 4.25%-5% SOLUTION 1,000 ML IV SCH ×2 (04:10→23:31)
[2016-12-27 05:04] LABS: BASO% 0.2 % (0.0-0.8); EOS# 0.18 X1000 (0.0-0.7); EOS% 1.5 % (0.0-10.0); HEMATOCRIT 32.7 % (37.0-47.0); HEMOGLOBIN 10.2 g/dL (12.0-16.0); IMM GRAN# 0.05 X1000 (0.0-0.04); IMM GRAN% 0.4 % (0.0-0.5); LYMPH# 1.66 X1000 (1.2-3.4); LYMPH% 13.9 % (20.5-51.1); MANUAL DIFF NEEDED? NO; MCH 33.3 PG (27-31); MCHC 31.2 g/dL (33-37); MCV 106.9 FL (81-99); MONO# 0.71 X1000 (0.11-0.59); MPV 10.2 FL (7.4-10.4); PLT 229 X1000 (130-400); RBC 3.06 XMIL (4.2-5.4)
[2016-12-27 05:17] LABS: HEMOGLOBIN A1C 6.1 % (4.8-6.0)
[2016-12-27 05:22] LABS: CALCIUM 9.1 mg/dL (8.8-10.2); POTASSIUM 4.4 mmol/L (3.5-5.1)
[2016-12-27] MEDS: HUMULIN R SUBQ SCH ×4 (06:00→20:57)
[2016-12-27 06:05] LABS: SED RATE 62 mm/hr (0-20)
--- NOTE | 2016-12-27 06:27 | CONSULTATION ---
DATE OF CONSULTATION: 12/26/2016 REASON FOR CONSULTATION: The patient was seen in consultation at the request of Dr. Rebolledo for evaluation of left-sided facial pain. HISTORY OF PRESENT ILLNESS: The patient is a 81-year-old, female with a history of polymyalgia rheumatica, atrial fibrillation, and DVT on anticoagulation with warfarin, who was admitted with left-sided facial pain. Her daughter is at bedside who also provides the history. The patient had a shingles outbreak to the left side of her face about 5 weeks ago. This has completely cleared up. During that time, she developed excruciating left facial pain in the area of the shingles rash. This pain unfortunately has persisted since onset. It comes on suddenly and is maximal pain at the onset. It is a sharp,shooting and burning pain and it lasts around 15 minutes before resolving. It returns roughly every 45 minutes. The patient denies any marie numbness or weakness of the area. No visual disturbance or hearing loss. No tinnitus. No other symptoms. She has been treated with morphine and [place] and at one point, became unresponsive at an outside facility. She may have been hypotensive during that time. There was concern that she was overmedicated. The daughter feels the pt becomes "loopy" each time she receives the pain medication. She is also currently being treated for a UTI. PAST MEDICAL HISTORY: Atrial fibrillation, DVT, on anticoagulation with warfarin, coronary artery disease, CHF, hypertension, hyperlipidemia, polymyalgia rheumatica. PAST SURGICAL HISTORY: She had abdominal surgery very recently for obstruction and now has a colostomy. Also, cholecystectomy, left shoulder surgery, bilateral knee replacements. FAMILY HISTORY: Positive for cirrhosis and arthritis. No autoimmune illnesses. SOCIAL HISTORY: She lives alone in her own home. She does not drink alcohol or use tobacco. No illicit drug use. 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 She does not drive. ALLERGIES: To Demerol. CURRENT MEDICATIONS: Notable for warfarin, prednisone, Macrobid, gabapentin 600 mg t.i.d., [place] 10 p.r.n., Rocephin. REVIEW OF SYSTEMS: Balance of 12 was conducted and is otherwise negative except as detailed in the HPI. PHYSICAL EXAMINATION: Vital Signs: Reviewed. She is afebrile, blood pressure 135/68, pulse 71, respiratory rate 15, 98% on room air. General Examination: She is an obese, elderly lady, supine in bed, in no acute distress. Resting comfortably when I entered the room. Neck: Supple. Pulmonary: She is not having any increased work of breathing. No coarse audible upper airway sounds. Abdomen: Soft and not particularly tender. Extremities: Warm and well perfused. Neurologic Examination: Mental status: She is awake and alert. She is appropriate and conversant. She is mostly oriented with the exception of the President and the date. There are occasional times where she seems slightly confused. Language is intact. She follows simple and complex commands. She knows the difference in left and right, and digit distinction. Cranial nerves: Pupils equal and reactive to light, conjugate gaze. Ocular movements are full. Visual beaulieu are full. Hearing is grossly intact to bedside testing. Face is symmetric with equal activation. No facial weakness. Facial sensation is intact. She does report that the left side of her face in the trigeminal distribution is more sensitive to touch. Tongue is midline. Palate elevates symmetrically. Shoulder shrug is full. Motor examination: There is no clear asymmetry. She is moving her extremities equally. She is at least against gravity. Normal tone and bulk. Reflexes are symmetric, 1+ throughout. Could not elicit ankle jerks. No clonus. Toes are downgoing. No evidence of incoordination on exam. Gait was not tested. Sensory exam was symmetric otherwise. DIAGNOSTICS: A noncontrast head CT was personally reviewed. There are no acute findings. There are some chronic microvascular ischemic changes. Her urinalysis was suggestive of a UTI. She is being treated for this. White count was elevated at 18, hemoglobin 11, hematocrit 36, platelets 260,000. PT 15, INR subtherapeutic at 1.4. BUN of 31, creatinine of 2.5. Liver function tests are not elevated. ASSESSMENT AND PLAN: This is a 81-year-old, female with a recent herpes zoster outbreak to the left side of her face five weeks ago who developed left-sided facial pain during the time of the outbreak and this has persisted intermittently since that time. 1. Trigeminal neuralgia. Likely post-herpetic but will obtain a cranial MRI for thorough workup to further evaluate for a lesion.We will have to do this noncontrasted based on her renal function currently. We will also give a dose of carbamazepine 200 mg orally now and start carbamazepine 200 mg by mouth twice a day as this is the indicated treatment. Unfortunately, carbamazepine is an enzyme inducer and may reduce her INR so I would recommend close monitoring of the INR and adjust the warfarin as needed. This will need to be done anytime the carbamazepine dose is adjusted, whether up or down. I see that she has already been subtherapeutic. The dose of the carbamazepine can be uptitrated as needed. 2. Urinary tract infection. Most likely the cause of her mild encephalopathy that she is experiencing. Being treated per primary team. Thank you for this consultation. We will follow. cc: MD Van Allen MD MTDD
[2016-12-27] MEDS: CALMOSEPTINE OINTMENT TOP PRN (07:13)
[2016-12-27 09:00] LABS: INR 1.62; PROTIME 17.5 Seconds (9.2-11.7)
--- NOTE | 2016-12-27 09:19 | Diag Imaging Result Doc PS360 ---
EXAM: MRI BRAIN W/O CONTRAST HISTORY: trigeminal neuralgia TECHNIQUE: MRI of the brain: T1 axial and sagittal, T2 FLAIR and DWI axial, gradient echo coronal, fiesta thin slice axial posterior fossa. COMMENT: There is no evidence for restricted diffusion. There is no evidence of bleed or abnormal extra-axial fluid collection. Some of the images are degraded by patient motion. There are no definite abnormalities in the course of the visualized 5th nerves or trigeminal ganglia. There is an empty sella. There are extensive punctate and patchy areas of increased T2-weighted signal intensity in the subcortical and periventricular white matter bilaterally particularly around the frontal horns and in the wilkes radiata regions. Some of these are frankly encephalomalacic clear and visible on the T1-weighted images. IMPRESSION: No evidence of acute disease. Chronic microvascular white matter changes. Electronically signed by Shahab Krishnan 12/27/2016 9:17 AM
[2016-12-27] MEDS: RYTHMOL PO SCH ×3 (10:05→16:08)
[2016-12-27] MEDS: THERA M PLUS PO SCH (10:05)
[2016-12-27] MEDS: COLACE PO SCH (10:05)
[2016-12-27] MEDS: VITAMIN C PO SCH ×2 (10:05→20:51)
[2016-12-27] MEDS: JANUVIA PO SCH (10:05)
[2016-12-27] MEDS: LOPRESSOR PO SCH (10:05)
[2016-12-27] MEDS: ZINC SULFATE PO SCH ×2 (10:05→20:51)
[2016-12-27] MEDS: CYMBALTA PO SCH (10:06)
[2016-12-27] MEDS: DIFLUCAN PO SCH (10:06)
[2016-12-27] MEDS: ZYLOPRIM PO SCH (10:06)
[2016-12-27] MEDS: SYNTHROID PO SCH (10:06)
[2016-12-27] MEDS: MACROBID PO SCH ×2 (10:06→20:51)
[2016-12-27] MEDS: NEURONTIN PO SCH ×3 (10:06→16:08)
[2016-12-27] MEDS: TEGRETOL PO SCH ×2 (10:06→20:51)
[2016-12-27] MEDS: LOVENOX SUBQ SCH (10:10)
[2016-12-27] MEDS: SOLU-MEDROL IV SCH (10:10)
[2016-12-27] MEDS: MONISTAT-DERM 2% CREAM TOP SCH ×2 (10:10→21:48)
--- NOTE | 2016-12-27 11:10 | PROGRESS NOTE ---
DATE: 12/27/2016 INTERVAL HISTORY: Patient was seen by neurologist. Scheduled for MRI of the brain, and started on Tegretol. The patient is ambulating very well. She is eating better. The pain is not intense. REVIEW OF SYSTEMS: None reported. OBJECTIVE: Vital Signs: Afebrile. Vitals are stable. HEENT: No rashes noted. No facial nerve weakness noted. Chest: Clear. Heart: Sounds are regular. Abdomen: Belly is soft, nontender. Extremities: No peripheral edema. No obvious neurological deficits. INVESTIGATIONS: CBC: White cell count 11, hematocrit 32, platelets 229,000. Sedimentation rate was 62. PT 15, INR 1.4. SMA 7: Sodium 139, potassium 4.4, BUN 27, creatinine 1.4. A1c 6.1. Urine positive for yeast infection. ASSESSMENT AND PLAN: 1. UTI on Macrobid. 2. Candiduria. Diflucan 100 daily. 3. Azotemia. On IV PPN. 4. Post herpetic neuralgia pain and follow up on MRI of the brain. Continue on Tegretol. Change the Prozac to Cymbalta and Neurontin, [place]. DC Zostrix. 5. DVT prophylaxis with Lovenox. 6. Polymyalgia rheumatica with elevated sedimentation rate. Change the prednisone to IV Solu- Medrol 40 mg daily. 7. Paroxysmal atrial fibrillation. Currently in sinus. Continue on Rythmol and Coumadin. 8. Disposition. Out of the bed with physical therapy. Discussed the plan of care with family. Level of documentation 25 minutes. cc: Van Rebolledo MD
--- NOTE | 2016-12-27 13:16 | PROGRESS NOTE ---
DATE: 12/27/2016 SUBJECTIVE: The family reports as well as the nurse that she has had less frequency to the painful attacks on the left side of her face since starting the carbamazepine, although they are still occurring. She slept well last night. They report she has not slept well in a couple of weeks. She is more sleepy this morning after a dose of norco and has not taken her morning medications yet, though the tech apparently reported that she was awake earlier this morning while she was giving a bath to the patient. OBJECTIVE: Vital Signs: Reviewed. She is afebrile. Blood pressure 175/80, pulse 72. General: She is in no acute distress. She is resting, asleep initially when I enter the room. She is drowsy but arouses to tactile stimulation with voice. Cardiovascular: Regular rate and rhythm. No murmurs are appreciated. Lungs: Clear to auscultation anteriorly. Neurologic: Mental status: She arouses to tactile stimulation and soft voice. Dozes off easily. Becomes more awake and alert after turning the lights on and sitting her up in bed. She is oriented to self, her family members that are in the room, her birthday but she is otherwise confused. She has some perseveration. She has some episodes of facial pain when I am in the room. They do resolve. Her pupils are equal, reactive to light, 2.5 mm both eyes, brisk. Her ocular movements appear to be full. Face is symmetric with equal activation. Palate elevates symmetrically. Tongue protrudes midline. She was not able to really be attentive while testing facial sensation this morning, though that was normal yesterday. Motor exam: She is moving her upper extremities equally. There is no obvious asymmetry. DIAGNOSTICS: Noncontrasted cranial MRI was obtained yesterday, personally reviewed. There are no acute findings, though there is some chronic microvascular ischemic changes. LAB WORK: White count is down to 12. INR up to 1.62 with a PT of 17.5, still subtherapeutic. BUN down to 27, creatinine 1.4; this is an improvement. Her A1c is 6.1. ASSESSMENT AND PLAN: This is a 81-year-old female with recent herpes zoster to the left side of the face and development of left facial pain syndrome during this time, which has persisted intermittently since that time. 1. Trigeminal neuralgia, postherpetic. MRI did not show any evidence for other secondary causes of this. Tolerating carbamazepine 200 mg b.i.d. and there has been at least some improvement in the frequency of her symptoms already. I suspect this may continue to show improvement as the dose is increased gradually, as tolerated and as needed. Again her INR will need to be closely monitored with any dose adjustments of the carbamazepine as this medication is an enzyme inducer. 2. Subtherapeutic INR on admission. Management per primary team. The INR will need to be closely monitored with carbamazepine initiation and any dose adjustment, as mentioned above and in the previous note. 3. Urinary tract infection. I suspect this is the cause of her mild encephalopathy and this is being managed by the primary team. She may be more sleepy also because of the pain medication, the [place], and also if the gabapentin was increased from her usual dose. Management per primary team. cc: MD Van Allen MD MTDD
[2016-12-27] MEDS: MELATONIN PO SCH (20:51)
[2016-12-27] MEDS: COUMADIN PO SCH (20:51)
[2016-12-28] MEDS: TYLENOL PO PRN (05:03)
[2016-12-28] MEDS: HUMULIN R SUBQ SCH ×4 (06:01→20:55)
[2016-12-28] MEDS: ATIVAN IV PRN (07:59)
[2016-12-28] MEDS: LOVENOX SUBQ SCH (08:09)
[2016-12-28] MEDS: SOLU-MEDROL IV SCH (08:09)
[2016-12-28] MEDS: ZINC SULFATE PO SCH ×2 (08:10→20:54)
[2016-12-28] MEDS: JANUVIA PO SCH (08:10)
[2016-12-28] MEDS: SYNTHROID PO SCH (08:10)
[2016-12-28] MEDS: VITAMIN C PO SCH ×2 (08:10→20:55)
[2016-12-28] MEDS: ZYLOPRIM PO SCH (08:10)
[2016-12-28] MEDS: TEGRETOL PO SCH ×2 (08:10→17:24)
[2016-12-28] MEDS: LOPRESSOR PO SCH (08:10)
[2016-12-28] MEDS: DIFLUCAN PO SCH (08:10)
[2016-12-28] MEDS: RYTHMOL PO SCH ×3 (08:10→17:24)
[2016-12-28] MEDS: NEURONTIN PO SCH ×3 (08:10→17:24)
[2016-12-28] MEDS: THERA M PLUS PO SCH (08:10)
[2016-12-28] MEDS: COLACE PO SCH (08:10)
[2016-12-28] MEDS: CYMBALTA PO SCH (08:10)
[2016-12-28] MEDS: MACROBID PO SCH ×2 (08:10→20:55)
[2016-12-28] MEDS: MONISTAT-DERM 2% CREAM TOP SCH ×2 (08:11→20:54)
--- NOTE | 2016-12-28 09:05 | PROGRESS NOTE ---
DATE: 12/28/2016 SUBJECTIVE: The patient is doing very well. Walking yesterday, eating well. Intermittent pain on the left side of the face. There is a residual stool noted in the rectum. Other than pain, she is doing very well. REVIEW OF SYSTEMS: None reported. OBJECTIVE: Vital Signs: On examination, she is afebrile. Blood pressure is slightly high. Intake and out are -340 mL. HEENT: Exam within normal limits. Chest: Clear. Heart: Sounds are regular. Abdomen: Belly is soft, nontender. Colostomy is working fine. Neurological: No obvious neurological deficits. INVESTIGATIONS: None reported. ASSESSMENT AND PLAN: 1. Left-sided post herpetic neuralgia pending MRI of the brain. Findings were reported to be unremarkable. Continue present medical therapy with Tegretol, Cymbalta, Neurontin, [place]. 2. Polymyalgia rheumatica. Increase the sedimentation rate. Continue intravenous steroids. 3. Candiduria on Diflucan. 4. Deep vein thrombosis and paroxysmal atrial fibrillation on warfarin. Check the PT/INR and blood workup in the morning. No family is at the bedside today. LEVEL OF DOCUMENTATION: 25 minutes. cc: Van Rebolledo MD
[2016-12-28 11:18] LABS: INR 2.31; PROTIME 25.6 Seconds (9.2-11.7)
[2016-12-28] MEDS: NORCO-10 PO PRN ×2 (11:41→15:14)
--- NOTE | 2016-12-28 14:10 | PROGRESS NOTE ---
DATE: 12/28/2016 Dr. Pacheco saw Ms. Leonardo for neurology yesterday. She has intense facial pain with features consistent with trigeminal neuralgia attributed to post herpetic pain. She has gabapentin 600 mg t.i.d., carbamazepine 200 mg b.i.d. and p.r.n. hydrocodone dose. She has been requiring hydrocodone less in the last 2 days than previously but still does need that. To this point, she has not had any significant clinical evidence of medication toxicity after adding carbamazepine. INR is being followed. In light of her good tolerance thus far but incomplete pain control, I will increase the carbamazepine dose to 200 mg b.i.d. If she has nausea, ataxia, dizziness or other adverse effects, we can reduce the dose. We can check the serum carbamazepine level later if needed. As before, we need to continue monitoring INR while adjusting carbamazepine. cc: MD Van Hand III, MD
[2016-12-28] MEDS: CALMOSEPTINE OINTMENT TOP PRN (15:14)
[2016-12-28] MEDS: CLINIMIX E 4.25%-5% SOLUTION 1,000 ML IV SCH ×2 (17:23→19:40)
[2016-12-28] MEDS: COUMADIN PO SCH (20:54)
[2016-12-28] MEDS: MELATONIN PO SCH (20:54)
[2016-12-29 05:07] LABS: MANUAL DIFF NEEDED? NO
[2016-12-29 05:12] LABS: BASO% 0.2 % (0.0-0.8); EOS# 0.06 X1000 (0.0-0.7); EOS% 0.5 % (0.0-10.0); HEMATOCRIT 32.8 % (37.0-47.0); HEMOGLOBIN 10.4 g/dL (12.0-16.0); IMM GRAN# 0.07 X1000 (0.0-0.04); IMM GRAN% 0.6 % (0.0-0.5); LYMPH# 2.15 X1000 (1.2-3.4); LYMPH% 17.1 % (20.5-51.1); MCH 32.7 PG (27-31); MCHC 31.7 g/dL (33-37); MCV 103.1 FL (81-99); MONO% 7.1 % (1.7-9.3); MPV 9.9 FL (7.4-10.4); NEUT% 74.5 % (42.2-75.2); PLT 258 X1000 (130-400); RBC 3.18 XMIL (4.2-5.4)
[2016-12-29] MEDS: NORCO-10 PO PRN (05:20)
[2016-12-29 05:33] LABS: CALCIUM 9.6 mg/dL (8.8-10.2); POTASSIUM 4.1 mmol/L (3.5-5.1)
[2016-12-29] MEDS: HUMULIN R SUBQ SCH ×4 (06:03→20:32)
[2016-12-29 06:14] LABS: SED RATE 60 mm/hr (0-20)
[2016-12-29] MEDS: TYLENOL PO PRN ×2 (08:30→14:03)
--- NOTE | 2016-12-29 08:35 | PROGRESS NOTE ---
DATE: 12/29/2016 SUBJECTIVE: The patient is sleepy. Intermittent left-sided facial pain. REVIEW OF SYSTEMS: None reported. OBJECTIVE: Vital Signs: Afebrile. Vitals are stable. I's and O's: Negative 292. HEENT: Within normal limits. Neck: Supple. Chest: Clear. Heart: Sounds are regular. Abdomen: Belly is soft, nontender. Good bowel sounds. No masses palpable. Neurologic: No obvious neurological deficits. INVESTIGATIONS: White cell count 12, hematocrit 32, platelets 259,000. INR 2.3. SMA 7: Sodium 136, potassium 4, BUN 30, creatinine 1.1, calcium 9.6. ASSESSMENT AND PLAN: 1. Postherpetic neuralgia pain. Treatment was maxed out. 2. Polymyalgia rheumatica. IV steroids. 3. Deep vein thrombosis and paroxysmal atrial fibrillation. INR is 2.3. Discontinue Lovenox. 4. Disposition. Will transfer back to [facility]. Trouble Shooter consult. 5. Plan of care today, out of the bed and discontinue Gaines in the morning. LEVEL OF DOCUMENTATION: 25 minutes. cc: Van Rebolledo MD
[2016-12-29 09:36] LABS: INR 2.58; PROTIME 28.8 Seconds (9.2-11.7)
[2016-12-29] MEDS: COLACE PO SCH (10:39)
[2016-12-29] MEDS: ZINC SULFATE PO SCH ×2 (10:39→20:14)
[2016-12-29] MEDS: RYTHMOL PO SCH ×3 (10:39→17:29)
[2016-12-29] MEDS: TEGRETOL PO SCH ×3 (10:39→17:29)
[2016-12-29] MEDS: NEURONTIN PO SCH ×3 (10:39→17:29)
[2016-12-29] MEDS: LOPRESSOR PO SCH (10:39)
[2016-12-29] MEDS: SOLU-MEDROL IV SCH (10:39)
[2016-12-29] MEDS: THERA M PLUS PO SCH (10:39)
[2016-12-29] MEDS: VITAMIN C PO SCH ×2 (10:40→20:14)
[2016-12-29] MEDS: ZYLOPRIM PO SCH (10:40)
[2016-12-29] MEDS: JANUVIA PO SCH (10:40)
[2016-12-29] MEDS: MACROBID PO SCH ×2 (10:40→20:14)
[2016-12-29] MEDS: CYMBALTA PO SCH (10:40)
[2016-12-29] MEDS: DIFLUCAN PO SCH (10:40)
[2016-12-29] MEDS: MONISTAT-DERM 2% CREAM TOP SCH ×2 (10:41→20:14)
[2016-12-29] MEDS: SYNTHROID PO SCH (10:41)
[2016-12-29] MEDS: CLINIMIX E 4.25%-5% SOLUTION 1,000 ML IV SCH ×2 (14:03→16:08)
[2016-12-29] MEDS: ATIVAN IV PRN (16:05)
[2016-12-29] MEDS: ZOVIRAX PO SCH (17:29)
[2016-12-29] MEDS: MELATONIN PO SCH (20:13)
[2016-12-29] MEDS: COUMADIN PO SCH (20:14)
--- NOTE | 2016-12-30 00:29 | PROGRESS NOTE ---
DATE: 12/29/2016 SUBJECTIVE: Ms. Leonardo continues to be sleepy, but never unarousable. When awake, she complains vigorously of pain. She has been more disoriented at times today. As I approached her bedside, she appeared to be sleeping soundly and peacefully. With moderate level of stimulation, she was awake and appeared alert. She had trouble maintaining attention. She answered questions incorrectly and differently from one minute to the next. At one point, she told me that she was in [facility]. Later, she agreed she was in [place] and then later reported again that she was in [place]. She did not ever identify this as a hospital. She did not answer other questions regarding orientation. She seemed unable to tell me where she lives in [place] and who is her family here. There was not family at the bedside. I phoned her daughter and discussed recent course at length. Daughter reports 6 months ago patient was completely intact cognitively, independent, taking care of herself, visited by daughter most days but independent. She had been using a walker for a few years and daughter believes that was because of problems associated with diabetic neuropathy. There was not definite history of clinical stroke or other previous neurologic event. She had a colostomy placed a few years ago. She had recent problems with that and surgical management in the last few months. That seemed to go uneventfully from a surgical standpoint. Daughter reports the patient has seemed transiently confused, having hallucinations, seeing bugs on the wall at times in the past over the last few years, often associated with UTI. She had intense left-sided head, ear, neck, and cheek pain about 6 weeks ago. Soon there was eruption typical of zoster. She had at least a short course of antiviral medicine. I believe she was taking steroids chronically for other reasons. Earlier this month and most of last month she apparently was awake and alert and able to report her symptoms and described typical lancinating pain over the left head and face. She was started on carbamazepine and seemed improved after the first few doses. She had been taking gabapentin chronically. She tried Lyrica in the remote past for other problems and developed "thick tongued speech," so that was stopped. She has not had phenytoin or oxcarbazepine. The daughter says there is no history of illicit drug use or ethanol abuse. Workup here includes brain MRI showing typical white matter changes but nothing focal, nothing acute. There was no apparent abnormality along the course of the fifth nerve. Lab work has shown some minor metabolic findings but nothing remarkable, nothing that generally would be associated with encephalopathy. BUN has been in the 30s and 40s, once 52. Blood sugars have been mildly elevated. A1c was 6.1% earlier this admission. Varicella zoster antibody IgM was negative and IgG was positive several weeks ago consistent with exposure to the virus. On my exam today, mental staus is uncertain, as above. She is moving all limbs , turning back and forth in the bed, turning her eyes left and right spontaneously, moving her head without apparent discomfort but she does occasionally wince in pain and then uses both hands to grab her head. I do not see clinical evidence of increased intracranial pressure. There is no definite focal neurologic finding. There is not meningismus. She was not able to give me a consistent description of her pain. She told me the pain was all over her head and on both sides and later she told me it was only one side, but she could not describe it precisely. IMPRESSION: 1. Delirium. This may be multifactorial. I do not see evidence of increased intracranial pressure or ASSISTANT PROFESSOR OF COMMUNICATION infection. Zoster encephalitis would be unlikely. We could resume antiviral as a precaution and I will order that. We will make sure she is well hydrated. More likely, delirium is related to medications. We can try to reduce doses and hold medicines that are not essential. I will check the carbamazepine level. We will try to hold her hydrocodone dose if possible. We might consider adding low-dose neuroleptic medicine for her comfort. 2. When she was alert, she reported pain typical of neuralgia. That seemed to be less after adding carbamazepine. We will continue that and check the serum level. 3. On review of records, I find that there is history of gout. I will check a uric acid level. 4. She has recently diagnosed hypothyroidism and I will recheck the thyroid level. I discussed my uncertainty frankly and at length with her daughter by phone. Thanks for allowing Neurology to follow Ms. Leonardo. cc: MD Van Hand III, MD MTDD
[2016-12-30] MEDS: ATIVAN IV PRN ×3 (00:59→17:34)
[2016-12-30] MEDS: TYLENOL PO PRN (01:00)
[2016-12-30] MEDS: HUMULIN R SUBQ SCH ×4 (06:16→21:12)
[2016-12-30] MEDS: CYMBALTA PO SCH ×2 (08:45→10:56)
[2016-12-30] MEDS: SYNTHROID PO SCH ×2 (08:45→10:51)
[2016-12-30] MEDS: COLACE PO SCH ×2 (08:46→10:53)
[2016-12-30] MEDS: LOPRESSOR PO SCH ×2 (08:46→10:55)
[2016-12-30] MEDS: JANUVIA PO SCH (08:46)
[2016-12-30] MEDS: ZINC SULFATE PO SCH ×2 (08:46→10:49)
[2016-12-30] MEDS: VITAMIN C PO SCH ×2 (08:46→10:50)
[2016-12-30] MEDS: ULTRACET 37.5MG/325MG PO PRN ×2 (08:47→13:14)
[2016-12-30] MEDS: THERA M PLUS PO SCH ×2 (08:47→12:28)
[2016-12-30] MEDS: ZYLOPRIM PO SCH ×2 (08:47→10:52)
[2016-12-30] MEDS: DIFLUCAN PO SCH (08:48)
[2016-12-30] MEDS: ZOVIRAX PO SCH ×3 (08:48→17:33)
[2016-12-30] MEDS: MACROBID PO SCH (08:49)
[2016-12-30] MEDS: SOLU-MEDROL IV SCH (08:50)
[2016-12-30] MEDS: TEGRETOL PO SCH ×3 (08:50→17:33)
[2016-12-30] MEDS: RYTHMOL PO SCH ×3 (08:51→17:33)
[2016-12-30] MEDS: LIDODERM TOP SCH (08:59)
[2016-12-30] MEDS: CLINIMIX E 4.25%-5% SOLUTION 1,000 ML IV SCH (11:00)
--- NOTE | 2016-12-30 13:34 | PROGRESS NOTE ---
DATE: 12/30/2016 Ms. Leonardo looks about the same to me today. She is mostly sleeping, occasionally moves spontaneously, sometimes moans. She did not maintain attention. I did not attempt to keep her alert with vigorous stimulation today. Daughter at the bedside reports patient seems about the same as yesterday. We had lengthy discussion of the uncertainty regarding her neurologic status. After discussing all of this at great length with daughter today and reviewing our discussion on the phone yesterday, I think the most likely scenario is that Ms. Leonardo has a baseline mild cognitive impairment syndrome which was well compensated at home and not recognized by family. There is history that she had transient confusion associated with UTI on more than 1 occasion in the past as far as a few years ago. There is also history that she has had gradually more prominent gait difficulty with some falling and some history consistent with apraxia. In that setting, any toxic or metabolic state might be associated with a more prominent and more persistent encephalopathy. We have a carbamazepine level pending. Sedimentation rate was 60 and has ranged from 24 to 112 in the past few months. She is followed with polymyalgia rheumatica. Recent T4 was normal at 1.31. Uric acid was normal at 3.6. I do not have any new suggestion today. We can wait on the carbamazepine level and adjust that dose if indicated. We can continue trying to manage with fewest amounts of medicine necessary. We might consider cautiously adding cholinesterase inhibitor later, but that will not provide any quick changes. We might consider adding low-dose neuroleptic. Again, no urgent suggestions today. Thanks for allowing me to follow Ms. Leonardo. cc: MD Van Hand III, MD MTDD
[2016-12-30 14:34] LABS: INR 3.35
[2016-12-30] MEDS: NORCO-10 PO PRN ×2 (15:01→23:45)
[2016-12-30] MEDS: MONISTAT-DERM 2% CREAM TOP SCH ×2 (17:11→21:15)
--- NOTE | 2016-12-30 20:35 | PROGRESS NOTE ---
DATE: 12/30/2016 SUBJECTIVE: The patient is delirious. Not eating. Intermittent pain. I appreciate Dr. Evans's input. The family was there at the bedside. All the options were discussed. REVIEW OF SYSTEMS: None reported. OBJECTIVE: Vital Signs: Vitals are stable. Afebrile. HEENT: Within normal limits. Chest: Clear. Heart: Sounds are regular. Abdomen: The belly is soft and nontender. Good bowel sounds. No masses are palpable. Extremities: No peripheral edema, cyanosis, or clubbing. Neurologic: No neurological deficits. INVESTIGATIONS: Carbamazepine level is 14.2. INR is 3.3. Free T4 is normal. Blood cultures are negative. Urine has a yeast infection. ASSESSMENT AND PLAN: 1. Postherpetic neuralgia in the left side of the face with altered mental status due to delirium. Discontinue hydrocodone. We will use the Ultracet as needed and continue on Cymbalta and stop Prozac and gabapentin and Lidoderm patch. 2. Jossie, on Diflucan. 3. Deep vein thrombosis and paroxysmal atrial fibrillation, currently in sinus. INR is 3.3. If it gets above 4 we will decrease the dose. 4. Poor nutrition. IV peripheral parenteral nutrition. LIVING WILL: Do Not Resuscitate. DISPOSITION: The patient has a bed at [facility]. The family wants to keep her over the weekend. We will follow up. LEVEL OF DOCUMENTATION: 25 minutes. cc: Van Rebolledo MD
[2016-12-31] MEDS: COUMADIN PO SCH (00:05)
[2016-12-31] MEDS: ULTRACET 37.5MG/325MG PO PRN ×4 (01:30→21:00)
[2016-12-31] MEDS: ZINC SULFATE PO SCH ×3 (01:47→21:01)
[2016-12-31] MEDS: VITAMIN C PO SCH ×3 (01:48→21:01)
[2016-12-31] MEDS: MELATONIN PO SCH ×2 (01:48→21:01)
[2016-12-31] MEDS: ATIVAN IV PRN ×2 (01:50→08:40)
[2016-12-31] MEDS: MACROBID PO SCH ×3 (01:56→21:00)
[2016-12-31] MEDS: CLINIMIX E 4.25%-5% SOLUTION 1,000 ML IV SCH ×3 (03:40→22:43)
[2016-12-31] MEDS: NORCO-10 PO PRN ×4 (03:43→22:43)
[2016-12-31] MEDS: HUMULIN R SUBQ SCH ×4 (06:27→21:01)
[2016-12-31] MEDS ORDERED: MILK OF MAGNESIA PO ONE ×2 (07:33→19:20)
--- NOTE | 2016-12-31 08:22 | PROGRESS NOTE ---
DATE: 12/31/2016 SUBJECTIVE: Ms. Leonardo is an elderly white female patient admitted with hypotension, significant pain on her left side of the face. The patient was at the intermediate. She does have post herpetic neuralgia. In the emergency room, her blood pressure was normal. The patient since admission doing fair. Most of the time the patient is sleeping. We are trying to manage her pain. Neurologist is also following patient with us. According to the nurses, when patient is awake she is screaming most likely with the pain. History part was limited. Admission history, physical and neurology consultation noted. She did not have any fever or chills. Oral intake is poor. The patient had a colostomy. OBJECTIVE: Vital Signs: Her vital signs noted. Neck: Supple. No JVD. Lungs: Bibasilar crepitations. Heart: S1 and S2 heard. Abdomen: Soft, globular. Bowel sounds present. Colostomy is in place. Extremities: No cyanosis, clubbing. No acute DVT. CLIMATOLOGIST: The patient is sleeping. Arousable, but uncooperative for detailed exam. LAB DATA: The patient's lab data done yesterday revealed her pro time was 3.35. PROBLEMS: 1. Post herpetic neuralgia. 2. Hypothyroidism. 3. History of polymyalgia rheumatica. 4. Osteoarthritis. 5. Urinary tract infection. 6. Mild dementia. 7. Atrial fibrillation. 8. Deep vein thrombosis. PLAN: We will continue current treatment and close observation. cc: MD Van Oliva MD
[2016-12-31] MEDS: JANUVIA PO SCH (10:02)
[2016-12-31] MEDS: LOPRESSOR PO SCH (10:02)
[2016-12-31] MEDS: ZOVIRAX PO SCH ×3 (10:02→18:11)
[2016-12-31] MEDS: SOLU-MEDROL IV SCH (10:03)
[2016-12-31] MEDS: RYTHMOL PO SCH ×3 (10:03→18:11)
[2016-12-31] MEDS: TEGRETOL PO SCH ×2 (10:03→14:19)
[2016-12-31] MEDS: DIFLUCAN PO SCH (10:03)
[2016-12-31] MEDS: ZYLOPRIM PO SCH (10:11)
[2016-12-31] MEDS: THERA M PLUS PO SCH (10:12)
[2016-12-31] MEDS: SYNTHROID PO SCH (10:13)
[2016-12-31] MEDS: MONISTAT-DERM 2% CREAM TOP SCH ×2 (10:13→21:02)
[2016-12-31] MEDS: COLACE PO SCH (10:13)
[2016-12-31] MEDS: CYMBALTA PO SCH (10:14)
--- NOTE | 2016-12-31 10:50 | Diag Imaging Result Doc PS360 ---
EXAM: ABDOMEN FLAT/UPRIGHT HISTORY: pain TECHNIQUE: Portable upright and supine, two views COMPARISON: 11/30/2016 FINDINGS: Minimal distended loops of bowel. No organomegaly. There is scoliosis with degenerative spine changes. IMPRESSION: Questionable ileus or even partial small bowel obstruction. Electronically signed by Guzman Arrington 12/31/2016 10:47 AM
[2016-12-31] MEDS: LIDODERM TOP SCH (12:12)
[2016-12-31] MEDS ORDERED: COUMADIN PO SCH (21:00)
[2017-01-01] MEDS: ATIVAN IV PRN ×3 (00:41→15:40)
[2017-01-01] MEDS: NORCO-10 PO PRN ×4 (02:27→16:38)
[2017-01-01] MEDS: CLINIMIX E 4.25%-5% SOLUTION 1,000 ML IV SCH ×2 (04:25→18:09)
[2017-01-01] MEDS: ULTRACET 37.5MG/325MG PO PRN ×3 (05:10→20:33)
[2017-01-01 05:45] LABS: MANUAL DIFF NEEDED? NO
[2017-01-01 05:54] LABS: BASO% 0.1 % (0.0-0.8); EOS# 0.13 X1000 (0.0-0.7); HEMATOCRIT 33.6 % (37.0-47.0); HEMOGLOBIN 10.9 g/dL (12.0-16.0); IMM GRAN# 0.27 X1000 (0.0-0.04); LYMPH# 2.79 X1000 (1.2-3.4); LYMPH% 20.6 % (20.5-51.1); MCH 32.9 PG (27-31); MCHC 32.4 g/dL (33-37); MCV 101.5 FL (81-99); MONO# 0.96 X1000 (0.11-0.59); MONO% 7.1 % (1.7-9.3); MPV 9.7 FL (7.4-10.4); NEUT% 69.2 % (42.2-75.2); PLT 370 X1000 (130-400); RBC 3.31 XMIL (4.2-5.4)
[2017-01-01] MEDS: HUMULIN R SUBQ SCH ×4 (06:04→22:37)
[2017-01-01 06:21] LABS: ALBUMIN 3.2 g/dL (3.5-5.0); CALCIUM 9.1 mg/dL (8.8-10.2); POTASSIUM 4.6 mmol/L (3.5-5.1); TOTAL BILIRUBIN 0.27 mg/dL (0.20-1.00); TOTAL PROTEIN 6.1 g/dL (6.3-8.3)
[2017-01-01 06:24] LABS: INR 4.04; PROTIME 46.4 Seconds (9.2-11.7)
[2017-01-01] MEDS ORDERED: MILK OF MAGNESIA PO ONE (08:52)
[2017-01-01] MEDS: ROCEPHIN 1 GM/NS 1 GM/50 ML IVPB IV SCH (09:08)
[2017-01-01] MEDS: LIDODERM TOP SCH (09:57)
[2017-01-01] MEDS: MONISTAT-DERM 2% CREAM TOP SCH ×2 (09:58→20:32)
[2017-01-01] MEDS: CYMBALTA PO SCH (09:59)
[2017-01-01] MEDS: ZYLOPRIM PO SCH (09:59)
[2017-01-01] MEDS: SOLU-MEDROL IV SCH (09:59)
[2017-01-01] MEDS: ZOVIRAX PO SCH ×3 (09:59→20:33)
[2017-01-01] MEDS: SYNTHROID PO SCH (10:00)
[2017-01-01] MEDS: LOPRESSOR PO SCH (10:00)
[2017-01-01] MEDS: ZINC SULFATE PO SCH ×2 (10:00→20:33)
[2017-01-01] MEDS: JANUVIA PO SCH (10:00)
[2017-01-01] MEDS: RYTHMOL PO SCH ×3 (10:00→20:33)
[2017-01-01] MEDS: DIFLUCAN PO SCH (10:00)
[2017-01-01] MEDS: VITAMIN C PO SCH ×2 (10:00→20:33)
[2017-01-01] MEDS: THERA M PLUS PO SCH (10:00)
[2017-01-01] MEDS: COLACE PO SCH (10:00)
--- NOTE | 2017-01-01 10:09 | PROGRESS NOTE ---
DATE: 01/01/2017 SUBJECTIVE: Ms. Leonardo is doing fair. The patient does have confusion and disorientation. At times, she is moaning. At times, she is in pain. Her sodium this morning was low at 127, BUN was 30, creatinine 1.1. The patient did have a bowel movement. Her colostomy seems to be functioning. History part was limited. The patient does have desirae under her breasts and in the groin. Her prothrombin time was INR 4.04. History part was limited. PHYSICAL EXAMINATION: Vital Signs: Her vital signs noted. Neck: Supple. No JVD. Lungs: Bibasilar crepitations. Heart: S1 and S2 heard. Abdomen: Soft, globular. Bowel sounds present. Colostomy functioning well. Extremities: No cyanosis, clubbing. No acute DVT. IRRIGATOR OVERHEAD: Alert, awake. Able to move all 4 limbs but uncooperative for detailed neurologic examination. LABORATORY DATA: Her WBC count this morning was 13.54, hemoglobin 10.9, hematocrit 33.6, platelet count 370,000. PT/INR 4.04. Her sodium 127, BUN 30, creatinine 1.1. The patient does have hyponatremia, could be due to Tegretol. Tegretol level was high. Her abdominal x-ray done yesterday, results reviewed. IMPRESSION AND PLAN: 1. Family requested Rocephin. She did well in the past, instead of Macrobid. I am going to stop Macrobid and we will try Rocephin. Considering her hyponatremia, elevated level of Tegretol, we will continue monitoring her sodium. 2. Her other problems include prolonged prothrombin time. I am going to hold the Coumadin. We will recheck prothrombin time in the morning. 3. Postherpetic neuralgia. 4. Hypothyroidism. 5. Partial small bowel obstruction. Patient did have good bowel movement. 6. Polymyalgia rheumatica. PLAN: Overall plan discussed with the patient's family and they are in agreement. cc: MD Van Oliva MD
[2017-01-01] MEDS: MELATONIN PO SCH (20:33)
[2017-01-02] MEDS: CLINIMIX E 4.25%-5% SOLUTION 1,000 ML IV SCH (00:26)
[2017-01-02] MEDS: NORCO-10 PO PRN ×2 (00:26→05:07)
[2017-01-02] MEDS: ATIVAN IV PRN ×2 (01:52→06:30)
[2017-01-02] MEDS: ULTRACET 37.5MG/325MG PO PRN (03:27)
[2017-01-02 04:53] LABS: MANUAL DIFF NEEDED? NO
[2017-01-02 04:57] LABS: BASO% 0.2 % (0.0-0.8); EOS# 0.17 X1000 (0.0-0.7); EOS% 0.9 % (0.0-10.0); HEMATOCRIT 35.6 % (37.0-47.0); HEMOGLOBIN 11.8 g/dL (12.0-16.0); IMM GRAN# 0.28 X1000 (0.0-0.04); IMM GRAN% 1.5 % (0.0-0.5); LYMPH# 2.65 X1000 (1.2-3.4); LYMPH% 14.7 % (20.5-51.1); MCH 33.1 PG (27-31); MCHC 33.1 g/dL (33-37); MCV 99.7 FL (81-99); MONO# 1.19 X1000 (0.11-0.59); MONO% 6.6 % (1.7-9.3); MPV 9.3 FL (7.4-10.4); NEUT% 76.1 % (42.2-75.2); PLT 438 X1000 (130-400); RBC 3.57 XMIL (4.2-5.4)
[2017-01-02 05:17] LABS: INR 3.65; PROTIME 41.6 Seconds (9.2-11.7)
[2017-01-02 05:22] LABS: ALBUMIN 3.3 g/dL (3.5-5.0); POTASSIUM 4.5 mmol/L (3.5-5.1); TOTAL BILIRUBIN 0.33 mg/dL (0.20-1.00); TOTAL PROTEIN 6.3 g/dL (6.3-8.3)
[2017-01-02] MEDS: HUMULIN R SUBQ SCH ×2 (06:48→11:15)
[2017-01-02 08:28] VITALS: BP 180/105
[2017-01-02] MEDS ORDERED: DILAUDID IV PRN (09:20)
[2017-01-02] MEDS ORDERED: DURAGESIC 12 MICROGM/HR PATCH TD SCH (09:30)
[2017-01-02] MEDS: COLACE PO SCH (09:33)
[2017-01-02] MEDS: CYMBALTA PO SCH (09:35)
[2017-01-02] MEDS: JANUVIA PO SCH (09:36)
[2017-01-02] MEDS: DIFLUCAN PO SCH (09:36)
[2017-01-02] MEDS: SYNTHROID PO SCH (09:37)
[2017-01-02] MEDS: THERA M PLUS PO SCH (09:37)
[2017-01-02] MEDS: LOPRESSOR PO SCH (09:37)
[2017-01-02] MEDS: VITAMIN C PO SCH (09:38)
[2017-01-02] MEDS: ZYLOPRIM PO SCH (09:38)
[2017-01-02] MEDS: ZOVIRAX PO SCH ×2 (09:38→12:30)
[2017-01-02] MEDS: ZINC SULFATE PO SCH (09:38)
[2017-01-02] MEDS: RYTHMOL PO SCH ×3 (09:39→12:30)
[2017-01-02] MEDS: MONISTAT-DERM 2% CREAM TOP SCH (09:46)
[2017-01-02] MEDS: LIDODERM TOP SCH (09:46)
[2017-01-02] MEDS: ROCEPHIN 1 GM/NS 1 GM/50 ML IVPB IV SCH (10:32)
[2017-01-02] MEDS: SOLU-MEDROL IV SCH (10:33)
--- NOTE | 2017-01-10 19:27 | DISCHARGE SUMMARY ---
ADMISSION DATE: 12/25/2016 DISCHARGE DATE: 01/08/2017 FINAL DIAGNOSIS: 1. Acute cardiopulmonary arrest due to metabolic encephalopathy due to delirium from postherpetic neuralgia on the left side of the shingles 7th nerve distribution. OTHER DIAGNOSES: 1. Polymyalgia rheumatica. 2. Paroxysmal atrial fibrillation. 3. Chronic renal failure. 4. History of deep venous thrombosis in the left leg. 5. History of pelvic fracture in the sacral area. 6. Diverticulosis. 7. Gout. 8. Obesity. 9. Hyperlipidemia. 10. Varicose veins. 11. Type 2 diabetes. 12. History of endometriosis, resolving. 13. History of parastomal hernia repair. 14. Aspiration pneumonitis. BRIEF HISTORY: Please see the H and P that was done by Dr. Mays. In brief, she is 81-year-old white female with above problems readmitted from [facility] with intractable left- sided facial pain associated with altered mental status, not eating, not walking , not able to recognize the family members. During this hospital admission patient was consulted by Dr. Evans. Further workup, MRI was negative. It is due to postherpetic neuralgia. The treatment was optimized with [place], gabapentin, and Tegretol. Despite maximal control, patient not able to take the pain and not able to the eat. Finally slowly declining. The patient was given IV fluids, IV antibiotics, and pain control and subsequently there was no improvement and patient is slowly declining in her performance status. She lives by herself. She was readmitted several times in [facility]. Finally family decided to go for comfort care. Living will was made with DNR. Care was transferred to [facility] under the [facility] on 01/02/2017. HOSPICE ADMISSION FROM 01/02/2017 TO 01/08/2017: During this patient was given symptomatic treatment, IV Dilaudid, IV Ativan, oxygen. She has a lot of rhonchi for which she was given scopolamine and atropine patches. Family was there during the hospice stay. The patient is showing Actonel breathing unchanged. Finally peacefully on 01/08/2017 at 1 :40 p.m. The patient peacefully due to acute cardiopulmonary arrest due to postherpetic neuralgia with comorbid conditions as above. Family was there at the time of demise. cc: Van Rebolledo MD [facility]
== END 2017-01-02 14:07 | disposition hospice, inpatient (51) ==
LOC: ED 09:31 → EDIPHOLD 13:19 → 3S 13:56 → 3N 01-02 12:55
PROVIDERS: ADMIT Internal Medicine; ATTEND Internal Medicine

== ENCOUNTER 2017-01-02 14:09 | Inpatient (IN) ==
[2017-01-02] MEDS ORDERED: CALMOSEPTINE OINTMENT TOP PRN (14:30)
[2017-01-02] MEDS ORDERED: TYLENOL PR PRN (14:31)
[2017-01-02] MEDS ORDERED: DILAUDID PCA VIAL IV PRN (14:37)
[2017-01-02] MEDS ORDERED: ZOFRAN IV PRN (14:41)
[2017-01-02] MEDS ORDERED: NARCAN IV PRN (14:44)
[2017-01-02] MEDS: LR 1,000 ML IV SCH (15:23)
[2017-01-02] MEDS: ROCEPHIN 1 GM/NS 1 GM/50 ML IVPB IV SCH (15:36)
[2017-01-02] MEDS: DIFLUCAN PO SCH (15:36)
[2017-01-02] MEDS: MONISTAT-DERM 2% CREAM TOP SCH (22:30)
--- NOTE | 2017-01-03 04:12 | PROGRESS NOTE ---
DATE: 01/02/2017 SUBJECTIVE: Events were noted over the weekend. The patient is extremely restless, in a lot of pain, none of them working. She has been crying all day yesterday. She is completely obtunded. She was given pain medications. Not eating well. She is bedridden. No improvement to control postherpetic neuralgia pain. REVIEW OF SYSTEMS: None reported. PHYSICAL EXAMINATION: Vital Signs: Stable. General: Patient is sleeping, resting comfortably. HEENT Examination: Within normal limits. Chest: Clear. Heart: Heart sounds are regular. Abdomen: Belly is soft, nontender. Good bowel sounds. She did have good bowel movements. ASSESSMENT AND PLAN: 1. Postherpetic neuralgia. 2. Altered mental status due to delirium. 3. Polymyalgia rheumatica. 4. Paroxysmal atrial fibrillation. 5. History of deep venous thrombosis. 6. History of pelvic fractures. 7. Diverticulosis. 8. Gout. 9. Obesity. 10. Hyperlipidemia. I had a long discussion with the family at the bedside. The patient has a living, do-not- resuscitate. They want to transfer the care to [facility], inpatient hospice due to intractable pain and living will, [id number]. Arrangements were made to transfer to the [facility] to the [facility] for comfort care with intravenous Dilaudid and Ativan. Family agreeable. LEVEL OF DOCUMENTATION: 35 minutes. cc: Van Rebolledo MD
[2017-01-03] MEDS: ATIVAN IV PRN ×3 (08:26→23:47)
[2017-01-03] MEDS: MONISTAT-DERM 2% CREAM TOP SCH ×2 (08:45→22:00)
[2017-01-03] MEDS ORDERED: DILAUDID PCA VIAL IV PRN (09:04)
[2017-01-03] MEDS: LR 1,000 ML IV SCH ×2 (12:07→15:38)
[2017-01-03] MEDS: ROCEPHIN 1 GM/NS 1 GM/50 ML IVPB IV SCH (15:30)
[2017-01-03] MEDS: DIFLUCAN PO SCH (16:14)
--- NOTE | 2017-01-03 22:42 | PROGRESS NOTE ---
DATE: 01/03/2017 SUBJECTIVE: Patient was transferred to the care to the inpatient hospice. Patient is on IV Dilaudid pump. She is awake. Not eating well. Complains of hole in the head, not talking. Family was there at the bedside. EXAMINATION: Vital signs: She is afebrile, vitals are stable. Chest: Is clear. Heart: Sounds are regular. Abdomen: Belly is soft, nontender. Good bowel sounds. Bedridden. Declining. ASSESSMENT AND PLAN: 1. Post herpetic neuralgia with altered mental status, declining performance status, with extensive comorbid conditions. The family is agreeable for the palliative services. Continue IV Dilaudid pump. 2. Oral thrush, on Diflucan. 3. Basically living will, Do Not Resuscitate. Continue symptom management with hospice care. LEVEL OF DOCUMENTATION: 15 minutes. cc: Van Rebolledo MD
[2017-01-04] MEDS: ATIVAN IV PRN ×4 (04:23→12:21)
[2017-01-04] MEDS: ATROPINE 1% OPHTH SOLN SL PRN (10:33)
[2017-01-04] MEDS: MONISTAT-DERM 2% CREAM TOP SCH (12:04)
[2017-01-04] MEDS: LR 1,000 ML IV SCH (14:53)
[2017-01-04] MEDS: DIFLUCAN PO SCH (14:54)
[2017-01-04] MEDS: DILAUDID PCA VIAL IV PRN (15:24)
--- NOTE | 2017-01-05 05:56 | PROGRESS NOTE ---
DATE: 01/04/2017 SUBJECTIVE: Hospice GIP care. The patient is still restless, in pain. Not able to eat. Slowly declining. Family was there at the bedside last night. REVIEW OF SYSTEMS: None reported. PHYSICAL EXAMINATION: Vital Signs: Afebrile. Vitals are stable. Weight of 217 pounds. HEENT: Examination within normal limits. Neck: Supple. Chest: Clear. Heart: Heart sounds are regular. Genitourinary: The patient still has a Gaines catheter. ASSESSMENT AND PLAN: 1. Postherpetic neuralgia with deconditioning. 2. Multiple medical problems, under GIP. 3. Continue to optimize the treatment for pain control with Dilaudid, Ativan, and scopolamine patch. 4. Living will, [id number]. 5. Continue present medical treatment. LEVEL OF DOCUMENTATION: 15 minutes. cc: Van Rebolledo MD
[2017-01-05] MEDS: MONISTAT-DERM 2% CREAM TOP SCH ×3 (06:47→21:10)
[2017-01-05] MEDS: ATROPINE 1% OPHTH SOLN SL PRN ×2 (12:10→21:08)
[2017-01-05] MEDS: LR 1,000 ML IV SCH (13:42)
[2017-01-05] MEDS: DIFLUCAN PO SCH (13:42)
[2017-01-05] MEDS ORDERED: TRANSDERM-SCOP TD SCH (14:15)
[2017-01-05] MEDS: DILAUDID PCA VIAL IV PRN (15:32)
--- NOTE | 2017-01-05 19:43 | PROGRESS NOTE ---
DATE: 01/05/2017 SUBJECTIVE: The patient is resting very well. Exhibiting CheyneStokes breathing. Oral secretions are noted. Not eating. REVIEW OF SYSTEMS: Not able to obtain. OBJECTIVE: Vital Signs: Stable. Low-grade fever. Tachycardic. Weight 217 pounds. Nasal oxygen 2 L. Lungs: Transmitted rhonchi on both sides. Heart: Sounds are regular. : Gaines catheter was seen. ASSESSMENT AND PLAN: This is a 81-year-old white female with postherpetic neuralgia pain and associated with comorbid conditions. PLAN OF CARE: IV Dilaudid, IV Ativan, and add on scopolamine patch for secretions. Basically symptom management for pain control and restless. Waiting for demise. Living Will, DNR. LEVEL OF DOCUMENTATION: 15 minutes. cc: Van Rebolledo MD MTDD
[2017-01-06] MEDS: ATROPINE 1% OPHTH SOLN SL PRN ×2 (00:34→11:06)
[2017-01-06] MEDS: MONISTAT-DERM 2% CREAM TOP SCH ×2 (09:18→21:08)
[2017-01-06] MEDS: LR 1,000 ML IV SCH ×2 (11:05→19:34)
[2017-01-06] MEDS: ATIVAN IV PRN (11:34)
[2017-01-06] MEDS: DILAUDID PCA VIAL IV PRN (17:34)
--- NOTE | 2017-01-06 19:24 | PROGRESS NOTE ---
DATE: 01/06/2017 SUBJECT: The patient is under GIP. The patient is obtunded, comfortable with agonal breathing. REVIEW OF SYSTEMS: None reported. EXAM: Vitals are low-grade fever, tachycardic. Blood pressure is low. Dry mucous membranes, rhonchi and the patient is obtunded. ASSESSMENT AND PLAN: 1. Post herpetic neuralgia. 2. Bowel obstruction. Continue with GIP care with symptomatic management. Waiting for demise with agonal breathing. Advanced directives DNR was ordered. LEVEL OF DOCUMENTATION: 15 minutes. cc: Van Rebolledo MD
[2017-01-06] MEDS: DIFLUCAN PO SCH (19:35)
[2017-01-07] MEDS: MONISTAT-DERM 2% CREAM TOP SCH ×2 (08:21→22:56)
[2017-01-07] MEDS: LR 1,000 ML IV SCH ×2 (09:38→13:11)
--- NOTE | 2017-01-07 11:58 | PROGRESS NOTE ---
DATE: 01/07/2017 SUBJECTIVE: Patient with agonal respirations. She is under hospice care inpatient. She is appearing very comfortable with her daughter at the bedside. OBJECTIVE: T-max 102.4 degrees. Current temperature 98 degrees, pulse 144, respirations 13, blood pressure 94/65. O2 saturation on 2 L 92%-94%. CV: Tachycardia. Irregularly irregular. Lungs: Rhonchi bilateral lung beaulieu with agonal respirations. Extremities: There is edema in her hands and arms and trace in her lower extremities. Labs are not being done. ASSESSMENT: 1. Post herpetic neuralgia. 2. Bowel obstruction. 3. Hospice care with DNR per patient request and family request. PLAN: Continue current hospice management. She appears very comfortable. cc: MD Van Renner MD
[2017-01-07] MEDS: DIFLUCAN PO SCH (13:34)
[2017-01-07] MEDS: DILAUDID PCA VIAL IV PRN (18:36)
[2017-01-08 09:24] VITALS: BP 133/102
[2017-01-08] MEDS: LR 1,000 ML IV SCH (09:30)
[2017-01-08] MEDS: MONISTAT-DERM 2% CREAM TOP SCH (10:04)
--- NOTE | 2017-01-08 12:38 | PROGRESS NOTE ---
DATE: 01/08/2017 SUBJECTIVE: The patient remains unresponsive with some work of breathing and frothy rhonchi. Appears very comfortable, in no acute distress. OBJECTIVE: Vital signs: Temperature a 100.8 degrees, pulse elevated in the mid 100s, blood pressure 133/102, O2 saturation on 2 L 92%. CV: Tachycardia. Lungs: With rhonchi bilaterally. Extremities: Less edema in her hands today but she does have edema sacrally and in the proximal arms and legs. ASSESSMENT: 1. Postherpetic neuralgia. 2. Bowel obstruction. 3. Hospice care with comfort measures. PLAN: Continue comfort care measures. Family is in attendance and attentive. Tylenol ordered as needed. cc: MD Van Renner MD
--- NOTE | 2017-01-10 19:27 | DISCHARGE SUMMARY ---
ADMISSION DATE: 12/25/2016 DISCHARGE DATE: 01/08/2017 FINAL DIAGNOSIS: 1. Acute cardiopulmonary arrest due to metabolic encephalopathy due to delirium from postherpetic neuralgia on the left side of the shingles 7th nerve distribution. OTHER DIAGNOSES: 1. Polymyalgia rheumatica. 2. Paroxysmal atrial fibrillation. 3. Chronic renal failure. 4. History of deep venous thrombosis in the left leg. 5. History of pelvic fracture in the sacral area. 6. Diverticulosis. 7. Gout. 8. Obesity. 9. Hyperlipidemia. 10. Varicose veins. 11. Type 2 diabetes. 12. History of endometriosis, resolving. 13. History of parastomal hernia repair. 14. Aspiration pneumonitis. BRIEF HISTORY: Please see the H and P that was done by Dr. Mays. In brief, she is 81-year-old white female with above problems readmitted from [facility] with intractable left- sided facial pain associated with altered mental status, not eating, not walking , not able to recognize the family members. During this hospital admission patient was consulted by Dr. Evans. Further workup, MRI was negative. It is due to postherpetic neuralgia. The treatment was optimized with [place], gabapentin, and Tegretol. Despite maximal control, patient not able to take the pain and not able to the eat. Finally slowly declining. The patient was given IV fluids, IV antibiotics, and pain control and subsequently there was no improvement and patient is slowly declining in her performance status. She lives by herself. She was readmitted several times in [facility]. Finally family decided to go for comfort care. Living will was made with DNR. Care was transferred to [facility] on 01/02/2017. HOSPICE ADMISSION FROM 01/02/2017 TO 01/08/2017: During this patient was given symptomatic treatment, IV Dilaudid, IV Ativan, oxygen. She has a lot of rhonchi for which she was given scopolamine and atropine patches. Family was there during the hospice stay. The patient is showing Actonel breathing unchanged. Finally peacefully on 01/08/2017 at 1 :40 p.m. The patient peacefully due to acute cardiopulmonary arrest due to postherpetic neuralgia with comorbid conditions as above. Family was there at the time of demise. cc: Van Rebolledo MD [facility]
== END 2017-01-08 13:45 | disposition expired ==
LOC: 3N 14:09
PROVIDERS: ADMIT Internal Medicine; ATTEND Internal Medicine